=== PATIENT | female | born 1945 | race Caucasian/White ===

== ENCOUNTER 2020-02-19 12:34 | Outpatient (CLI) | payer MEDICARE, BC, SELFPAY ==
[2020-02-19 13:13] LABS: Basophils # 0.1 10^3/uL (0.0-0.1); Basophils % 0.3 %; Eosinophils # 0.2 10^3/uL (0.0-0.8); Eosinophils % 0.5 %; Hematocrit 43.6 % (37.0-47.0); Hemoglobin 13.9 g/dL (11.5-15.3); Lymphocytes # 39.5 10^3/uL (0.8-4.8); Lymphocytes % 85.9 %; Mean Corpuscular HGB Conc 31.9 g/dL (30.0-36.0); Mean Corpuscular Hemoglobin 29.3 pg (28.0-34.0); Mean Corpuscular Volume 91.8 fL (81-99); Mean Platelet Volume 9.3 fL (7.4-10.4); Monocytes # 1.2 10^3/uL (0.2-0.9); Monocytes % 2.5 %; Neutrophils # 4.92 10^3/uL (1.8-7.7); Neutrophils % 10.6 %; Nucleated Red Blood Cells % 0 %; Platelet Count 170 10^3/cmm (130-400); Red Blood Count 4.75 10^6/uL (4.1-5.3); Red Cell Distribution Width 13.4 % (12.1-15.1)
[2020-02-19 13:34] LABS: Alanine Aminotransferase 25 U/L (0-33); Albumin Level 4.3 g/dL (3.5-5.2); Alkaline Phosphatase 62 IU/L (35-105); Anion Gap 10.9 (5-19); Aspartate Amino Transferase 20 U/L (0-32); Blood Urea Nitrogen 9 mg/dL (8-23); Calcium 9.6 mg/dL (8.5-10.5); Carbon Dioxide 33 mmol/L (22-29); Chloride 103 mmol/L (98-107); Globulin 1.9 g/dL (1.3-4.6); Glucose 88 mg/dL (65-115); Lactate Dehydrogenase 167 U/L (135-214); Osmolality Calculated 292 mOsm/kg (285-295); Potassium 4.9 mmol/L (3.5-5.1); Sodium 142 mmol/L (136-145); Total Bilirubin 0.3 mg/dL (0.15-1.2); Total Protein 6.2 g/dL (6.6-8.7)
[2020-02-19 13:45] LABS: Slide Review Slide Review Perform
--- NOTE | 2020-02-23 12:17 | ONC FU_ITS ---
Dr. Yarbrough Patient Follow-Up Note Patient: Sue Delgado Unit #: [id number]: 1945 Dicatated By: Moe Yarbrough M.D.Date of Visit:Feb 19, 2020 Onc Med Follow-up/Prog Note Chief Complaint: Chronic lymphocytic leukemia. History of Present Illness: This is a 75 year-old woman with chronic lymphocytic leukemia, Reza stage 0. The leukemia was initially diagnosed by peripheral blood flow cytometry in October of 2004. She had early stage disease, and she has been managed with observation. 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 She has no other ongoing medical illnesses, but she has been prone to having bronchitis. She has a history of smoking in the range 1 to 1-1/2 packs of cigarettes daily. She had quit smoking, but she started again in September 2016. She is seen for a scheduled visit. She has been feeling good generally. She has some fatigue, attributable to being lazy. Overall she is feeling fine. She has good appetite. She has not had fever or night sweats. She occasionally has hot flashes. She has just occasional cough. She does not complain of shortness of breath or chest pain. She sometimes has nausea. She says she has lots of heartburn and indigestion. She also complains that her bowels are overactive and she tends to have urgency with defecation. She sometimes cannot control it. She has frequent urination, but no bladder incontinence. She says her joints hurt all the time. She does not complain of headache or dizziness, and she has no focal neurologic symptoms. Medications: Endocet 1 Tablet (of 5-325 mg) Oral four times a day PRN, FLUoxetine HCl 1 Capsule (of 20 mg) Oral daily, Lovastatin 1 (20 mg) Tablet Oral daily, Spironolactone 1 (25 mg) Tablet Oral daily, Synthroid 1 (88 mcg) Tablet Oral daily, Xanax 1 (0.5 mg) Tablet Oral t.i.d. PRN Allergies: Amitriptyline HCl, Naproxen, and steroids. Review of Systems: Constitutional - Overall she is feeling fine. She has some fatigue, attributable to being lazy. Her appetite is good. She has not had fever or night sweats. She occasionally has hot flashes. ECOG score is 1, ENMT - She sometimes has sinus drainage. No mouth sores. No sore throat or difficulty swallowing, Hematologic/Lymphatic - No abnormal bruising or bleeding, Respiratory - No shortness of breath. She occasionally has cough. No pleuritic pain or hemoptysis, Cardiovascular - No angina pain. No palpitations, Gastrointestinal - She sometimes has nausea. She has a lot of heartburn/indigestion. Her bowels have been overactive, she has urgency with defecation. She sometimes cannot control it. No blood in the stool or black stools, Genitourinary (F) - No dysuria or hematuria. She has urinary frequency. No urgency or incontinence, Musculoskeletal - She says her joints hurt all the time, Neurologic - No headache or dizziness. No numbness or tingling. No other focal neurologic symptoms, Psychiatric - She has anxiety. No depression. No insomnia. Vital Signs: Performed on Feb 19, 2020 13:59 Height - 65.50 in Weight - 184.0 lbs (HIGH) BSA - 1.92 sq.m BMI - 30.15 (HIGH) Temperature - 97.7 F (LOW) Pulse - 99 /min Respiration - 16 /min BP - 168/74 mm(hg) (HIGH) O2 Sat - 91 % (LOW) Pain - 0 Physical Examination: Constitutional - She looks pretty good generally, Eyes - Sclerae nonicteric. Conjunctivae clear, ENMT - No lesions noted in the oral cavity, Hematologic/Lymphatic - No cervical, clavicular, or axillary lymphadenopathy, Respiratory - Lungs sound clear with some decrease in air movement bilaterally, Cardiovascular - Heart rhythm is regular. There is a I/ systolic murmur. There is no gallop or rub noted, Abdomen - Soft. Liver and spleen are not enlarged. There is no abdominal mass or ascites noted and there is no inguinal adenopathy, Extremities - No edema, Neurologic - No focal neurologic deficits noted. Lab/Imaging: Test performed on Feb 19, 2020 12:55 LDH (Total) 167 U/L Sodium 142 mmol/L Potassium 4.9 mmol/L Chloride 103 mmol/L CO2 33 mmol/L Anion Gap 10.9 BUN 9 mg/dL Creatinine 0.8 mg/dL Cr Clearance (Est) 81.29 mL/min Glucose 88 mg/dL Osmolality - Calculated 292 mOsm/kg Calcium 9.6 mg/dL Protein, Total 6.2 g/dL Albumin 4.3 g/dL Globulin 1.9 g/dL Bilirubin, Total 0.3 mg/dL ALT (SGPT) 25 U/L AST (SGOT) 20 U/L Alkaline Phosphatase 62 IU/L WBC 46.0 10 3/uL RBC 4.75 10 6/uL HGB 13.9 g/dL HCT 43.6 % MCV 91.8 fL MCH 29.3 pg MCHC 31.9 g/dL RDW 13.4 % Platelet Count 170 10 3/cmm MPV 9.3 fL Neutrophils 4.92 10 3/uL Lymphocytes 39.5 10 3/uL Monocytes 1.2 10 3/uL Eosinophils 0.2 10 3/uL Basophils 0.1 10 3/uL Neutrophil % 10.6 % Lymphocyte % 85.9 % Monocyte % 2.5 % Eosinophil % 0.5 % Basophils % 0.3 % NRBC % 0 % CBC Slide Review Slide Review Perform REVIEW AGREES WITH AUTOMATED Impression: 1. Patient has chronic lymphocytic leukemia. She has early stage disease, Reza stage 0, and she has been followed on observation since initial diagnosis in October 2004. 2. She has additional history of bronchitis/COPD, and she is still smoking. 3. She has a history of Isamar's thyroiditis. She has no other significant medical illnesses. She had multiple problems following cataract excisions in 2016, apparently related to adverse effects from steroid injections. Those symptoms eventually resolved. From March through August of 2018 she was having significant problems related to 2 brown recluse spider bites, though those did eventually heal. During follow-up there had been a very gradual but consistent increase in her lymphocyte count, but with no other indications of progression of the chronic lymphocytic leukemia. On her current CBC her blood counts appear stable. Her overall clinical status also appears stable other than she has developed some problems with defecation. Plan: She remains on observation/expectant management for the CLL. She will be scheduled for a follow-up visit in one year. In the meantime, I did recommend that she first trying stopping all dairy products to see if that will help with her bowel issues. If not, I will give her the option to try cholestyramine. However, it may be advisable to first get a colonoscopy. Signed By: Moe Yarbrough M.D. <<Signature on File>>
== END 2020-02-19 12:35 | disposition home or self-care (01) ==
LOC: ONCMED 12:38
PROVIDERS: PCP Family Medicine; Visit Provider Internal Medicine Medical Oncology
DX: C91.10 Chronic lymphocytic leukemia of B-cell type not having achieved remission (principal); R15.2 Fecal urgency; J44.9 Chronic obstructive pulmonary disease, unspecified; F17.210 Nicotine dependence, cigarettes, uncomplicated; E06.3 Autoimmune thyroiditis
CPT/HCPCS: 36415; 80053; 83615; 85025; G0463

== ENCOUNTER 2020-03-08 12:18 | Outpatient (CLI) | payer MEDICARE, BC, SELFPAY ==
--- NOTE | 2020-03-08 12:26 | US_ITS ---
WS: [id number] ABDOMINAL ULTRASOUND LIMITED REASON FOR VISIT: EPIGASTRIC PAIN TECHNIQUE: Grayscale and Doppler ultrasound examination of the abdomen. FINDINGS: Pancreas: No mass or ductal dilatation. Abdominal aorta and IVC: Normal Liver: Liver measures 16.1 cm in length. Normal echotexture and no focal lesion. Focal lesion. Gallbladder: Gallbladder wall thickness measures 0.2 mm. No calculi. Normal common bile duct. Right kidney: Right kidney measures 9.7 cm x 3.7 cm x 4.6 cm.No mass, calculus, or hydronephrosis. No ascites or mass identified. US/US gall bladder [id number] IMPRESSION: Borderline liver enlargement, nonspecific, with no other liver findings. Normal gallbladder and bile ducts.
== END 2020-03-08 12:19 | disposition home or self-care (01) ==
LOC: RAD 12:22
PROVIDERS: PCP Family Medicine; Visit Provider Nurse Practitioner Family
DX: R10.13 Epigastric pain (principal); R19.7 Diarrhea, unspecified
CPT/HCPCS: 76705

== ENCOUNTER 2020-08-08 10:40 | Emergency (ER) | payer MEDICARE, BC, SELFPAY ==
[2020-08-08 11:14] VITALS: BP 160/82; PULSE 78; RESP 15; TEMP 36.7; O2SAT 93; BMI 26.8
--- NOTE | 2020-08-08 12:38 | CT_ITS ---
WS: [id number] CT ABDOMEN PELVIS TECHNIQUE: Contrast-enhanced CT of the abdomen and pelvis with coronal and sagittal reformatted image s. CLINICAL INFORMATION: right flank pain/ RLQ abd pain. pyelo? vs MS pain vs other COMPARISON: None. DLP: 1600.[address] scans at [facility] use at least one of these dose optimization techniques: automat ed exposure control; mA and/or kV adjustment per patient size (includes targeted exams where dose is matched to clinical indication); or iterative reconstruction. FINDINGS: Normal liver. Normal portal vein and splenic vein. Normal spleen. Normal pancreas. Normal GE junction . Lung bases are well aerated. Adrenal glands are normal. Normal renal parenchymal enhancement. No hy dronephrosis. No obstructing renal or ureteral calculi. Aortic calcification. Normal caliber abdomina l aorta. Bladder is decompressed. Diffuse bladder wall thickening and enhancement. Enlarged heterogeneous fibroid uterus with calcified bulky uterine fibroids. Inspissated secretions o r calcifications in the sigmoid colon. Diverticulosis. No evidence of acute diverticulitis. No eviden ce of small or large bowel obstruction. No abdominal or pelvic lymphadenopathy. No inguinal lymphaden opathy. Right adnexal cystic lesion measuring 1.5 CM. This can be followed up with ultrasound. CT/CT abdomen pelvis w con* [id number] IMPRESSION: 1. No hydronephrosis in either kidney. No renal or ureteral calculi. 2. Bulky calcified fibroid uterus. 3. Right adnexal cystic lesion measuring 1.5 CM. This can be followed up with ultrasound. 4. No free fluid in the abdomen or pelvis. 5. Diverticulosis. No evidence of acute diverticulitis. 6. Diffuse bladder wall thickening and enhancement. Recommend correlation for cystitis. 7. Normal appendix in the right lower quadrant.
--- NOTE | 2020-08-08 12:40 | ECG_ITS ---
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 Measurements Intervals Wells Rate: 64 P: 59 NE: 158 QRS: -11 QRSD: 83 T: 58 QT: 366 QTc: 379 Interpretive Statements SINUS RHYTHM No previous ECG available for comparison Electronically Signed On 08-08-2020 23:48:12 CDT by Zuhair Pabon M.D. [id number]
[2020-08-08] MEDS: sodium chloride 0.9% 1,000 ML 999 ML IV (13:31)
[2020-08-08] MEDS: cefTRIAXone 1,000 MG in sodium chloride 0.9% (plus) 50 ML 100 MG IV (13:32)
[2020-08-08 13:37] LABS: Basophils # 0.3 10^3/uL (0.0-0.1); Basophils % 0.5 %; Eosinophils # 0.2 10^3/uL (0.0-0.8); Eosinophils % 0.3 %; Hematocrit 46.4 % (37.0-47.0); Hemoglobin 15.1 g/dL (11.5-15.3); Lymphocytes # 42.2 10^3/uL (0.8-4.8); Lymphocytes % 76.8 %; Mean Corpuscular HGB Conc 32.5 g/dL (30.0-36.0); Mean Corpuscular Volume 92.1 fL (81-99); Mean Platelet Volume 9.3 fL (7.4-10.4); Monocytes # 1.2 10^3/uL (0.2-0.9); Monocytes % 2.1 %; Neutrophils # 10.98 10^3/uL (1.8-7.7); Neutrophils % 19.9 %; Nucleated Red Blood Cells % 0 %; Platelet Count 301 10^3/cmm (130-400); Red Blood Count 5.04 10^6/uL (4.1-5.3); Red Cell Distribution Width 14.5 % (12.1-15.1)
--- NOTE | 2020-08-08 13:42 | PC.PHAR ---
pt states she takes care of her own medications-pt states her dr dced her xanax -ext med history shows last filled on 07/02/20 30d/s for 0.5mg po bid prn-pt states she hasnt had since 07/24/20-pt states she needs her xannys back-pt brought in a bottle of buspar 15mg tid filled on 08/07/20 90ds and 10mg po tid prn filled on 08/01/20 30d/s-pt states she only took 10mg tid once and isnt going to take that medication again-pt states wednesday was the last day she took the macrobid and is now taking cipro-pt states the dr changed her synthroid to 37.5mcg daily last filled as 75mcg on 05/15/20 90d/s
[2020-08-08 13:52] LABS: Alanine Aminotransferase 12 U/L (0-33); Albumin Level 4.3 g/dL (3.5-5.2); Alkaline Phosphatase 65 IU/L (35-105); Blood Urea Nitrogen 8 mg/dL (8-23); Calcium 8.5 mg/dL (8.5-10.5); Carbon Dioxide 31 mmol/L (22-29); Chloride 97 mmol/L (98-107); Globulin 1.9 g/dL (1.3-4.6); Glucose 90 mg/dL (65-115); Lipase 35 U/L (13-60); Osmolality Calculated 282 mOsm/kg (285-295); Sodium 137 mmol/L (136-145); Total Bilirubin 0.6 mg/dL (0.15-1.2); Total Protein 6.2 g/dL (6.6-8.7)
[2020-08-08 13:53] LABS: Lactate (Lactic Acid level) 0.8 mmol/L (0.5-2.2)
[2020-08-08 13:54] LABS: Anion Gap 13.5 (5-19); Aspartate Amino Transferase 15 U/L (0-32); Potassium 4.5 mmol/L (3.5-5.1)
[2020-08-08 14:08] LABS: Slide Review Slide Review Perform; White Blood Count 54.9 10^3/uL (4.0-10.0)
--- NOTE | 2020-08-08 14:36 | ED_ITS ---
HPI - General Adult General: Chief complaint: General Medical Stated complaint: kidney infection failed outpt treatment Time Seen by Provider: 08/08/20 12:20 History of Present Illness: HPI narrative: The patient is a 75-year-old female who comes to the ER complaining of right flank pain for the past 9 days. She said she saw her primary care physician who initially started her on Macrobid however after a few days it did not work and she has been on ciprofloxacin 500 mg twice daily for several days. She says her symptoms have not changed and she continues to have right flank pain radiating to her groin. She says she urinates frequently but this is usual for her. She also has lymphoma and has a chronically severely elevated white count which she says the outpatient physicians are watching. Denies fever. Onset (ago): day(s) (9) Location: back Radiation: abdomen Severity: moderate Quality: other (Cramping) Pain Consistency: constant Relieving factors: none Exacerbating factors: movement Associated symptoms: Reports no associated symptoms; Deny chest pain, confusion, dyspnea, headache(s), rash or palpitations Review of Systems General: Reports: 10 or more systems reviewed and unremarkable except in HPI and below Const: Denies: fatigue Eyes: Denies: change in vision, blurry vision or eye redness ENMT: Denies: throat pain, swelling of lips/tongue, ear or mastoid pain or nasal congestion Card: Denies: chest pain, palpitations, irregular heart rhythm, edema, dyspnea on exertion or orthopnea Resp: Denies: dyspnea, productive cough or non-productive cough GI: Denies: abdominal pain, diarrhea or GI cramping : Reports: flank pain and urinary frequency; Denies: difficulty voiding or urinary urgency Musc: Denies: neck pain, back pain, extremity pain, joint pain, joint redness, limited range of motion or muscle weakness Skin/Breast: Denies: rash, pruritus, erythema, skin pain or skin tenderness Neuro: Denies: headache(s), numbness in extremities, weakness in extremities, sensory changes, difficulty walking, dizziness, confusion or Slurred speech present Psych: Denies: anxiety or depression Endo: Denies: polyuria All/Imm: Denies: urticaria, throat swelling or tongue swelling Physical Exam Const: COMMON NORMALS: no acute distress, average body habitus, patient oriented x3, no limitations, healthy appearing, alert and well nourished GENERAL APPEARANCE: cooperative, comfortable, well kempt and well developed ORIENTATION/CONSCIOUSNESS: Yes awake, Yes oriented to person, Yes oriented to place and Yes oriented to time HENMT: COMMON NORMALS: normocephalic, external ears normal and Normal external nose present HEAD & SCALP: normal to inspection and normocephalic NOSE: Normal external nose present EXTERNAL EAR: Yes external ears normal MOUTH: Normal oral and palatal mucosa present THROAT: posterior oropharynx normal Eye: COMMON NORMALS: Equal, round and reactive pupils present and EOMs intact bilaterally GENERAL EYE: appearance normal, both eyes and all related structures PUPIL: Yes Equal, round and reactive pupils present Neck/C-Spine: COMMON NORMALS: full ROM, no lymphadenopathy, no meningeal signs and no JVD GENERAL: Yes normal visual inspection Lymph: LYMPHATIC: no lymphadenopathy noted Chest: COMMONS NORMALS: normal inspection of the chest and normal palpation of entire chest wall Resp: COMMON NORMALS: normal respiratory effort, No retractions, No use of accessory muscles, clear to auscultation bilaterally and percussion normal EFFORT & INSPECTION: Yes able to speak in complete sentences AUSCULTATION: clear to auscultation bilaterally PERCUSSION: percussion normal Cardio: COMMON NORMALS: no JVD, regular rate, regular rhythm, S1 normal heart sound present, S2 normal heart sound present and Peripheral pulses 2+ throughout RATE: regular rate RHYTHM: regular rhythm HEART SOUNDS: S1 normal heart sound present and S2 normal heart sound present PERIPHERAL PULSES: Peripheral pulses 2+ throughout GI: COMMON NORMALS: Normal to inspection, nondistended, normoactive bowel sounds present, Soft to palpation, non-tender and no masses INSPECTION: Yes normal to inspection PALPATION: Yes Soft to palpation : OTHER: She has some CVA tenderness on the right side. Left side normal. Difficult to tell if the CVA tenderness is true or if it is musculoskeletal. It is tender with mild palpation to the erector spinae a musculature versus true flank tenderness. Back/Pelvis: COMMON NORMALS: thoracic and lumbar spine normal to inspection, no thoracic nor lumbar tenderness and thoraco-lumbar ROM normal Extremity: COMMON NORMALS: normal to inspection, full ROM, capillary refill normal, no joint enlargement and no pedal edema GENERAL: Yes normal exam except as noted Neuro: COMMON NORMALS: patient oriented x3, CN's II-XII intact bilaterally, moves all extremities, no focal motor deficits, no sensory deficits noted and gait normal SENSORIUM/ORIENTATION: Yes alert, Yes oriented to person, Yes oriented to place and Yes oriented to time MENINGEAL SIGNS: Yes no meningeal signs Psych: COMMON NORMALS: mental status grossly normal, Normal thought process present, cooperative, normal affect and speech normal APPEARANCE: Yes well kempt ATTITUDE: Yes calm SPEECH: Yes normal speech THOUGHT PROCESS: Normal thought process present Skin: COMMON NORMALS: no rashes or lesions noted GENERAL SKIN EXAM: no rashes or lesions noted Course Vital Signs: Vital signs: Vital Signs Temperature 98.1 F 08/08/20 11:14 Pulse Rate 78 08/08/20 11:14 Respiratory Rate 15 08/08/20 11:14 Blood Pressure 160/82 08/08/20 11:14 Pulse Oximetry 93 08/08/20 11:14 MDM - General Adult MDM Narrative: Medical decision making narrative: The patient came to the ER complaining of right flank pain and urinary symptoms. She is taking ciprofloxacin at home but continues to have flank pain. She was given ceftriaxone empirically on arrival and it did take her some time to produce urine however the sample looks clear. White count is 54.9 and she has known lymphoma which is being monitored as an outpatient. I recommended she drink lots of fluids, continue her ciprofloxacin, and follow-up the culture result in a couple days at her primary care doctor's office. ER with worsening symptoms at any time. Lab Data: Labs: Lab Results 08/08/20 08/08/20 08/08/20 Range/Units 13:19 13:19 13:19 WBC 54.9 H* (4.0-10.0) 10^3/ uL RBC 5.04 (4.1-5.3) 10^6/u L Hgb 15.1 (11.5-15.3) g/dL Hct 46.4 (37.0-47.0) % MCV 92.1 (81-99) fL MCH 30.0 (28.0-34.0) pg MCHC 32.5 (30.0-36.0) g/dL RDW 14.5 (12.1-15.1) % Plt Count 301 (130-400) 10^3/c mm MPV 9.3 (7.4-10.4) fL Neut % (Auto) 19.9 % Lymph % (Auto) 76.8 % Howard % (Auto) 2.1 % Eos % (Auto) 0.3 % Baso % (Auto) 0.5 % Neut # (Auto) 10.98 H (1.8-7.7) 10^3/u L Lymph # (Auto) 42.2 H (0.8-4.8) 10^3/u L Howard # (Auto) 1.2 H (0.2-0.9) 10^3/u L Eos # (Auto) 0.2 (0.0-0.8) 10^3/u L Baso # (Auto) 0.3 H (0.0-0.1) 10^3/u L Nucleated RBC % (a uto) 0 % Nucleated RBCs # 0.0 /100WBC Sodium 137 (136-145) mmol/L Potassium 4.5 (3.5-5.1) mmol/L Chloride 97 L (98-107) mmol/L Carbon Dioxide 31 H (22-29) mmol/L Anion Gap 13.5 (5-19) BUN 8 (8-23) mg/dL Creatinine 0.7 (0.5-0.9) mg/dL GFR Calculation Not Reportable Glucose 90 (65-115) mg/dL Calculated Osmolal ity 282 L (285-295) mOsm/k g Lactate 0.8 (0.5-2.2) mmol/L Calcium 8.5 (8.5-10.5) mg/dL Total Bilirubin 0.6 (0.15-1.2) mg/dL AST 15 (0-32) U/L ALT 12 (0-33) U/L Alkaline Phosphata se 65 (35-105) IU/L Total Protein 6.2 L (6.6-8.7) g/dL Albumin 4.3 (3.5-5.2) g/dL Globulin 1.9 (1.3-4.6) g/dL Lipase 35 (13-60) U/L Urine Color (Yellow) Urine Appearance (CLEAR) Urine pH (5-7) Ur Specific Gravit y (1.005-1.030) Urine Protein (Negative) Urine Glucose (UA) (Normal) Urine Ketones (Negative) Urine Blood (Negative) Urine Nitrate (Negative) Urine Bilirubin (Negative) Urine Urobilinogen (Negative) mg/dL Ur Leukocyte Maribeth ase (Negative) Urine RBC (0-2) /hpf Urine WBC (0-5) /hpf Ur Squamous Epith Cells (0-5) /hpf Ur Transition Epit h Cell /hpf Amorphous Sediment Urine Bacteria (NONE) /hpf 08/08/ Range/Units 15:45 WBC (4.0-10.0) 10^3/ uL RBC (4.1-5.3) 10^6/u L Hgb (11.5-15.3) g/dL Hct (37.0-47.0) % MCV (81-99) fL MCH (28.0-34.0) pg MCHC (30.0-36.0) g/dL RDW (12.1-15.1) % Plt Count (130-400) 10^3/c mm MPV (7.4-10.4) fL Neut % (Auto) % Lymph % (Auto) % Howard % (Auto) % Eos % (Auto) % Baso % (Auto) % Neut # (Auto) (1.8-7.7) 10^3/u L Lymph # (Auto) (0.8-4.8) 10^3/u L Howard # (Auto) (0.2-0.9) 10^3/u L Eos # (Auto) (0.0-0.8) 10^3/u L Baso # (Auto) (0.0-0.1) 10^3/u L Nucleated RBC % (a uto) % Nucleated RBCs # /100WBC Sodium (136-145) mmol/L Potassium (3.5-5.1) mmol/L Chloride (98-107) mmol/L Carbon Dioxide (22-29) mmol/L Anion Gap (5-19) BUN (8-23) mg/dL Creatinine (0.5-0.9) mg/dL GFR Calculation Glucose (65-115) mg/dL Calculated Osmolal ity (285-295) mOsm/k g Lactate (0.5-2.2) mmol/L Calcium (8.5-10.5) mg/dL Total Bilirubin (0.15-1.2) mg/dL AST (0-32) U/L ALT (0-33) U/L Alkaline Phosphata se (35-105) IU/L Total Protein (6.6-8.7) g/dL Albumin (3.5-5.2) g/dL Globulin (1.3-4.6) g/dL Lipase (13-60) U/L Urine Color Straw (Yellow) Urine Appearance Clear (CLEAR) Urine pH 7 (5-7) Ur Specific Gravit y 1.005 (1.005-1.030) Urine Protein Neg (Negative) Urine Glucose (UA) Norm (Normal) Urine Ketones Negative (Negative) Urine Blood Neg (Negative) Urine Nitrate Negative (Negative) Urine Bilirubin Neg (Negative) Urine Urobilinogen Norm (Negative) mg/dL Ur Leukocyte Maribeth ase Trace H (Negative) Urine RBC 0-4 H (0-2) /hpf Urine WBC 0-4 H (0-5) /hpf Ur Squamous Epith Cells 0-4 H (0-5) /hpf Ur Transition Epit h Cell 0-4 /hpf Amorphous Sediment Not Reportable Urine Bacteria Trace (NONE) /hpf Discharge Plan Discharge Patient Disposition: Home Clinical Impression: Cystitis Condition: Stable Prescriptions: No Action multivitamin Tablet 1 tab PO DAILY RF: 0 ciprofloxacin HCl 500 mg tablet 500 mg PO BID RF: 0 spironolactone 25 mg tablet 25 mg PO DAILY@07 RF: 0 Synthroid 75 mcg tablet 37.5 mcg PO DAILY@07 RF: 0 oxycodone-acetaminophen 5-325 mg tablet 1 tab PO Q4H PRN (Reason: Pain) RF: 0 omeprazole 20 mg capsule,delayed release(DR/EC) 20 mg PO QAM RF: 0 lovastatin 20 mg tablet 20 mg PO DAILY@18 RF: 0 ondansetron 4 mg tablet,disintegrating 4 mg PO Q6H PRN (Reason: Nausea And Vomiting) RF: 0 fluoxetine 20 mg capsule 20 mg PO DAILY@05 RF: 0 buspirone 15 mg tablet See Rx Instructions .ROUTE .COMPLEX RF: 0 Chantix 1 mg tablet 1 mg PO BID RF: 0 Discharge Orders: Discharge ED (Routine); Ordered 08/08/20 Ordered By: Ronal Steven Referrals: Darryl Pham Jr, MD [Primary Care Provider] - Discharge Diet: Advance as tolerated Discharge Activity: Resume usual activity Patient Instructions: Urinary Tract Infection in Women (ED), Acute Pyelonephritis (ED), Opioid Safety Activity Restrictions/Additional Instructions: You likely have a bladder infection called cystitis as it is seen on the CT scan. Your pain also radiates to your flanks you may have a mild kidney infection as well. Your urine looks relatively clean and we have given you an antibiotic in the ER. Please continue to finish your antibiotic at home and discuss with your primary care physician the culture report which usually takes 2 to 3 days to come back. Drink lots of fluids and follow-up with your primary care physician in 3 to 5 days. Return to the ER with worsening symptoms at any time. Coding Level of Care Code ED Attic Blower for Estela Fwd Exam Comprehensive
[2020-08-08] MEDS: iohexol 300 mg/mL 100 mL Btl IV (14:51)
[2020-08-08 15:59] LABS: Add Urine Microscopic? YES; Bilirubin Urine Neg (Negative); Blood Urine Neg (Negative); Glucose Urine UA Norm (Normal); Ketones Urine Negative (Negative); Leukocyte Esterase Urine Trace (Negative); Nitrate Urine Negative (Negative); Protein Urine Neg (Negative); Specific Gravity, Urine 1.005 (1.005-1.030); Urine Appearance Clear (CLEAR); Urine Color Straw (Yellow); Urobilinogen Urine Norm (Negative); pH Urine 7 (5-7)
[2020-08-08 16:02] LABS: Add Urine Culture? No; Bacteria Urine TRACE /hpf; RBC Urine 0-4 /hpf (0-2); Squamous Epithelial Cell Urine 0-4 /hpf (0-5); Transitional Epi Cells Urine 0-4 /hpf; WBC Urine 0-4 /hpf (0-5)
[2020-08-08 16:37] VITALS: BP 141/77; PULSE 67; RESP 16; O2SAT 91
== END 2020-08-08 16:38 | disposition home or self-care (01) ==
PROVIDERS: Emergency Provider Family Medicine; PCP Family Medicine
DX: N30.90 Cystitis, unspecified without hematuria (principal)
CPT/HCPCS: 74177; 80053; 81001; 83605; 83690; 85025; 93005; 96365; 99283; J0696; J7030; Q9967

== ENCOUNTER 2020-09-26 07:54 | Outpatient (CLI) | payer MEDICARE, BC, SELFPAY ==
--- NOTE | 2020-09-26 08:11 | CT_ITS ---
WS: [id number] CT ABDOMEN PELVIS TECHNIQUE: Noncontrast CT of the abdomen and pelvis with coronal and sagittal reformatted images. CLINICAL INFORMATION: RUQ PAIN COMPARISON: August 08, 2020 DLP: 1143.[address] scans at [facility] use at least one of these dose optimization techniques: automat ed exposure control; mA and/or kV adjustment per patient size (includes targeted exams where dose is matched to clinical indication); or iterative reconstruction. FINDINGS: Noncontrast liver is normal. Lung bases are well aerated. Subsegmental atelectasis right lower lobe. Noncontrast spleen is normal. Normal GE junction. Normal noncontrast pancreas. Adrenal glands are nor mal. No hydronephrosis in either kidney. No obstructing renal or ureteral calculi. Gallbladder appear s decompressed. Normal caliber abdominal aorta. Aortic calcification. No abdominal or pelvic lymphadenopathy. No ingu inal lymphadenopathy. Sigmoid diverticulosis. No evidence of acute diverticulitis. No evidence of hig h-grade small or large bowel obstruction. Heterogeneous enlarged bulky fibroid uterus with calcificat ions unchanged from previous. Right ovarian cystic lesion similar to previous measuring 15 mm. Constipation right colon.. CT/CT abdomen pelvis wo con [id number] IMPRESSION: 1. No obstructing renal or ureteral calculi. No hydronephrosis. 2. Sigmoid diverticulosis. No evidence of acute diverticulitis. 3. Mild constipation right colon. 4. Normal caliber abdominal aorta. 5. Small low-attenuation lesion right ovary measuring 15 mm similar to previou s. This can be followed up with ultrasound. 6. Heterogeneous bulky fibroid uterus with extensive calcifications is unchang ed. 7. No other significant changes from previous.
[2020-09-26] MEDS: iohexol 300 mg/mL 50 mL Btl PO (08:39)
== END 2020-09-26 07:55 | disposition home or self-care (01) ==
LOC: RADWPI 07:57
PROVIDERS: PCP Family Medicine; Visit Provider Nurse Practitioner Family
DX: R10.11 Right upper quadrant pain (principal); K57.30 Diverticulosis of large intestine without perforation or abscess without bleeding; K59.00 Constipation, unspecified; N83.8 Other noninflammatory disorders of ovary, fallopian tube and broad ligament
CPT/HCPCS: 74176; Q9967

== ENCOUNTER 2020-12-07 07:57 | Outpatient (CLI) | payer MEDICARE, BC, SELFPAY ==
--- NOTE | 2020-12-07 08:12 | USR_ITS ---
PROCEDURE INFORMATION: Exam: US Pelvis Complete, Transabdominal and US Duplex Artery and Vein, Ovaries, Complete Exam date and time: 12/07/2020 8:12 AM Age: 75 years old Clinical indication: Pelvic pain; Patient HX: RT side pain; Additional info: Noninflammitory disease of ovary (ovary lesion on recent ct) TECHNIQUE: Imaging protocol: Real-time transabdominal pelvic ultrasound with image documentation. Real-time duplex ultrasound scan of the arterial and venous flow of the ovaries with B-mode, color Doppler flow and spectral waveform analysis. Complete Pelvis, Complete Duplex. COMPARISON: CT abdomen pelvis wo con [id number] 09/26/2020 9:21 AM FINDINGS: Uterus/cervix: Uterus measures 7.2 x 2.5 x 4.8 cm. Uterus is very heterogeneous and lobulated in contour with multiple calcifications compatible fibroids. The largest calcified fibroid measures 1.8 cm in greatest dimension. Endometrial stripe is difficult to visualize due to the abnormal uterus and shadowing from the fibroids but no thickened endometrial stripe is identified. The stripe measures approximately 2-3 mm. Right adnexa: The right ovary is unremarkable in appearance measuring 1.4 x 1.3 x 2.3 cm. No right ovarian cysts or masses. Doppler evaluation of the right ovary was performed and demonstrates appropriate arterial and venous flow. No right ovarian torsion. Left adnexa: The left ovary is unremarkable in appearance measuring 1.6 x 2.0 x 2.5 cm. No left ovarian mass or cyst. Doppler evaluation of the left ovary demonstrates good arterial and venous flow. No left ovarian torsion. Free fluid: None. Bladder: Normal. US/US pelvic complete* [id number] IMPRESSION: 1. Multiple uterine fibroids. Otherwise unremarkable uterus. 2. Unremarkable bilateral ovaries. No ovarian mass or cyst. 3. Unremarkable bilateral ovarian Doppler. No ovarian torsion.
== END 2020-12-07 07:58 | disposition home or self-care (01) ==
PROVIDERS: PCP Family Medicine; Visit Provider Nurse Practitioner Family
DX: N83.9 Noninflammatory disorder of ovary, fallopian tube and broad ligament, unspecified (principal); R10.2 Pelvic and perineal pain; D25.9 Leiomyoma of uterus, unspecified
CPT/HCPCS: 76856; 93976

== ENCOUNTER 2021-01-27 10:17 | Outpatient (CLI) | payer MEDICARE, BC, SELFPAY ==
--- NOTE | 2021-01-27 10:27 | CT_ITS ---
WS: [id number] LDCT LUNG CANCER SCREENING HISTORY: NICOTINE DEPENDENCE TECHNIQUE: Axial imaging performed from the apices to 1 cm below the costophrenic angles. Coronal and sagittal reformats are submitted with axial MIP series. All CT scans at [facility] use at least one of these dose optimization techniques: automated exposure control; mA and/or kV adjustment per patient size (includes targeted exams where dose is matched to clinical indication); or iterativ e reconstruction. DLP: 55.38 mGy.cm DIvol: 1.58 mGy COMPARISON: 06/17/2005 Diagnostic quality: Satisfactory Lung Nodules: No pulmonary nodule or endobronchial lesions. Linear atelectasis in the RIGHT lower lob e. Very small amount of groundglass attenuation or atelectasis at the lingula. Lungs: Mild pulmonary hyperinflation from emphysema. Heart: Normal size heart. No pericardial effusion. Other findings: Mild atherosclerosis aorta. There are a few small mediastinal and hilar lymph nodes. CT/CT lung screening [id number] IMPRESSION: LUNG-RADS: 1-Negative FOLLOW UP: 12 Month: Continue annual screening with LDCT OTHER FINDINGS (S MODIFIER): None.
== END 2021-01-27 10:18 | disposition home or self-care (01) ==
LOC: CT 10:18
PROVIDERS: PCP Family Medicine; Visit Provider Nurse Practitioner Family
DX: Z12.2 Encounter for screening for malignant neoplasm of respiratory organs (principal); F17.210 Nicotine dependence, cigarettes, uncomplicated
CPT/HCPCS: 71271

== ENCOUNTER 2021-02-10 12:35 | Outpatient (CLI) | payer MEDICARE, BC, SELFPAY ==
[2021-02-10 13:19] LABS: Basophils # 0.1 10^3/uL (0.0-0.1); Basophils % 0.3 %; Eosinophils # 0.2 10^3/uL (0.0-0.8); Eosinophils % 0.4 %; Hematocrit 47.7 % (37.0-47.0); Hemoglobin 16.1 g/dL (11.5-15.3); Lymphocytes # 32.8 10^3/uL (0.8-4.8); Mean Corpuscular HGB Conc 33.8 g/dL (30.0-36.0); Mean Corpuscular Hemoglobin 30.2 pg (28.0-34.0); Mean Corpuscular Volume 89.5 fl (81-99); Mean Platelet Volume 9.5 fL (7.4-10.4); Monocytes # 1.5 10^3/uL (0.2-0.9); Monocytes % 3.6 %; Neutrophils # 7.81 10^3/uL (1.8-7.7); Neutrophils % 18.4 %; Nucleated Red Blood Cells % 0 %; Platelet Count 220 10^3/cmm (130-400); Red Blood Count 5.33 10^6/uL (4.1-5.3); Red Cell Distribution Width 13.5 % (12.1-15.1)
[2021-02-10 13:48] LABS: Alanine Aminotransferase 9 U/L (0-33); Albumin Level 4.5 g/dL (3.5-5.2); Alkaline Phosphatase 84 IU/L (35-105); Anion Gap 12.4 (5-19); Aspartate Amino Transferase 18 U/L (0-32); Blood Urea Nitrogen 12 mg/dL (8-23); Carbon Dioxide 32 mmol/L (22-29); Chloride 96 mmol/L (98-107); Globulin 2.4 g/dL (1.3-4.6); Glucose 73 mg/dL (65-115); Lactate Dehydrogenase 274 U/L (135-214); Osmolality Calculated 280 mOsm/kg (285-295); Potassium 4.4 mmol/L (3.5-5.1); Sodium 136 mmol/L (136-145); Total Bilirubin 0.5 mg/dL (0.15-1.2); Total Protein 6.9 g/dL (6.6-8.7)
[2021-02-10 14:07] LABS: Slide Review Slide Review Perform
[2021-02-10 14:09] LABS: White Blood Count 42.6 10^3/uL (4.0-10.0)
--- NOTE | 2021-02-14 09:12 | ONC FU_ITS ---
Dr. Yarbrough Patient Follow-Up Note Patient: Sue Delgado Unit #: [id number]: [id number] Dicatated By: Moe Yarbrough M.D.Date of Visit:Feb 10, 2021 Onc Med Follow-up/Prog Note Chief Complaint: Chronic lymphocytic leukemia. History of Present Illness: This is a 76 year-old woman with chronic lymphocytic leukemia, Reza stage 0. The leukemia was initially diagnosed by peripheral blood flow cytometry in October of 2004. She had early stage disease, and observation/expectant management was recommended. During follow-up, there was a gradual increase in her lymphocyte count, but there is no indication for treatment of the CLL, and she continued expectant management. 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 Her other medical illnesses include hypertension, hyperlipidemia, and degenerative arthritis. She also has had recurrent episodes of bronchitis. She has a history of smoking in the range 1 to 1-1/2 packs of cigarettes daily. She had quit smoking, but she started again in September 2016. She is seen for a scheduled visit. She indicates that she was pretty sick for couple of months last spring. It started with an E. coli urinary tract infection. During that time she had a weight loss in the range of 30 pounds, she did get better, and she has since regained 20 of that. She still complains that some days she does not have energy, and her activity is also limited by back pain. Her ECOG score is 1. Appetite is okay now. She does not have fever or night sweats. She has some allergy related sinus symptoms and she does have cough associated with it. She says her breathing is fine. She does not complain of chest pain. She currently has no GI or complaints. She has persistent pain in her lower back on the right side and in the right sacroiliac area. She also has joint pain in her hands and wrists. She does not complain of headache or dizziness, and she has no focal neurologic symptoms. Medications: Cyclobenzaprine HCl Tablet Oral PRN, Lovastatin 1 (20 mg) Tablet Oral daily, [place] 3 500 1 Tablet (of 500 mg) Capsule Oral b.i.d., Spironolactone 1 (25 mg) Tablet Oral daily, Synthroid 1 (88 mcg) Tablet Oral daily, Xanax 1 (0.5 mg) Tablet Oral t.i.d. PRN Allergies: Amitriptyline HCl, Naproxen, and steroids. Vital Signs: Performed on Feb 10, 2021 16:02 Height - 65.50 in Weight - 177 lbs (LOW) BSA - 1.89 sq.m BMI - 29.01 Temperature - 98.0 F (LOW) Pulse - 100 /min Respiration - 16 /min BP - 149/84 mm(hg) (HIGH) O2 Sat - 93 % (LOW) Pain - 0 Fatigue - 4 Physical Examination: Constitutional - She looks pretty good generally, Eyes - Sclerae nonicteric. Conjunctivae clear, ENMT - No lesions noted in the oral cavity, Hematologic/Lymphatic - No cervical, clavicular, or axillary lymphadenopathy, Respiratory - Lungs sound clear with some decrease in air movement bilaterally, Cardiovascular - Heart rhythm is regular. There is no murmur, gallop, or rub noted, Abdomen - Soft. Liver and spleen are not enlarged. There is no abdominal mass or ascites noted and there is no inguinal adenopathy, Extremities - No edema, Neurologic - No focal neurologic deficits noted. Lab/Imaging: Test performed on Feb 10, 2021 12:59 LDH (Total) 274 U/L Sodium 136 mmol/L Potassium 4.4 mmol/L Chloride 96 mmol/L CO2 32 mmol/L Anion Gap 12.4 BUN 12 mg/dL Creatinine 0.7 mg/dL Cr Clearance (Est) 88.01 mL/min Glucose 73 mg/dL Osmolality - Calculated 280 mOsm/kg Calcium 9.0 mg/dL Protein, Total 6.9 g/dL Albumin 4.5 g/dL Globulin 2.4 g/dL Bilirubin, Total 0.5 mg/dL ALT (SGPT) 9 U/L AST (SGOT) 18 U/L Alkaline Phosphatase 84 IU/L WBC 42.6 10 3/uL RBC 5.33 10 6/uL HGB 16.1 g/dL HCT 47.7 % MCV 89.5 fl MCH 30.2 pg MCHC 33.8 g/dL RDW 13.5 % Platelet Count 220 10 3/cmm MPV 9.5 fL Neutrophils 7.81 10 3/uL Lymphocytes 32.8 10 3/uL Monocytes 1.5 10 3/uL Eosinophils 0.2 10 3/uL Basophils 0.1 10 3/uL Neutrophil % 18.4 % Lymphocyte % 77.0 % Monocyte % 3.6 % Eosinophil % 0.4 % Basophils % 0.3 % NRBC % 0 % CBC Slide Review Slide Review Perform REVIEW AGREES WITH AUTOMATED RESULTS Problem List: 1. chronic lymphocytic leukemia. 2. Hypertension. 3. Hyperlipidemia. 4. COPD/bronchitis. 5. Degenerative arthritis. 6. History of Isamar's thyroiditis. Problems Addressed with this Encounter and Plan: 1. Patient has chronic lymphocytic leukemia. She had early stage disease ( Reza stage 0) at initial diagnosis in 2004, and expectant management was recommended. During follow-up there has been a gradual increase in her lymphocyte count. There has been no other evidence of disease progression and there has been no indication for treatment. As such, she continues expectant management. She will be scheduled for a follow-up visit in 6 months. 2. She has degenerative arthritis and she has significant worsening of joint pain during the winter months. During that time she is able to function much better with occasional use of the opiate pain medication, and she will be given a prescription for oxycodone 5/APAP 325 to take as needed. Signed By: Moe Yarbrough M.D. <<Signature on File>>
== END 2021-02-10 12:36 | disposition home or self-care (01) ==
LOC: ONCMED 12:44
PROVIDERS: PCP Family Medicine; Visit Provider Internal Medicine Medical Oncology
DX: Z08 Encounter for follow-up examination after completed treatment for malignant neoplasm (principal); Z85.6 Personal history of leukemia; I10 Essential (primary) hypertension; E78.5 Hyperlipidemia, unspecified; J44.9 Chronic obstructive pulmonary disease, unspecified; M19.90 Unspecified osteoarthritis, unspecified site; E06.3 Autoimmune thyroiditis; Z79.899 Other long term (current) drug therapy
CPT/HCPCS: 36415; 80053; 83615; 85025; 90471; 90670; 99214

== ENCOUNTER 2021-03-19 10:43 | Outpatient (CLI) | payer MEDICARE, BC, SELFPAY ==
--- NOTE | 2021-03-19 11:00 | MM_ITS ---
WS: [id number] BILATERAL DIGITAL SCREENING MAMMOGRAPHY WITH CAD CLINICAL INFORMATION: SCREEN HISTORY: Screening mammogram. No current complaints. COMPARISON: TECHNIQUE: Bilateral CC and MLO views. FINDINGS: Scattered fibroglandular densities bilaterally. No suspicious focal mass, asymmetry, calcifications, or architectural distortion. No evidence of malignancy. A few tiny incidental punctate calcifications similar to previous. MM/[place] [id number] IMPRESSION: BI-RADS: 2-Benign FOLLOW UP: 1 Year Follow-up Recommend return to annual screening mammography.
== END 2021-03-19 10:44 | disposition home or self-care (01) ==
LOC: RADSHAW 10:48
PROVIDERS: Visit Provider Nurse Practitioner Family
DX: Z12.31 Encounter for screening mammogram for malignant neoplasm of breast (principal)
CPT/HCPCS: 77067

== ENCOUNTER 2021-08-27 12:24 | Oncology outpatient (recurring) (ONCR) | payer MEDICARE, BC, SELFPAY ==
[2021-08-27 11:30] LABS: Hematocrit 46.7 % (37.0-47.0); Hemoglobin 15.7 g/dL (11.5-15.3); Mean Corpuscular HGB Conc 33.6 g/dL (30.0-36.0); Mean Corpuscular Hemoglobin 29.8 pg (28.0-34.0); Mean Corpuscular Volume 88.6 fl (81-99); Mean Platelet Volume 9.7 fL (7.4-10.4); Platelet Count 199 10^3/cmm (130-400); Red Blood Count 5.27 10^6/uL (4.1-5.3); Red Cell Distribution Width 13.8 % (12.1-15.1)
[2021-08-27 11:32] LABS: Alanine Aminotransferase 15 U/L (0-33); Alkaline Phosphatase 83 IU/L (35-105); Anion Gap 14.4 (5-19); Aspartate Amino Transferase 15 U/L (0-32); Blood Urea Nitrogen 11 mg/dL (8-23); Calcium 9.1 mg/dL (8.5-10.5); Carbon Dioxide 25 mmol/L (22-29); Chloride 100 mmol/L (98-107); Globulin 2.7 g/dL (1.3-4.6); Glucose 99 mg/dL (65-115); Osmolality Calculated 279 mOsm/kg (285-295); Potassium 4.4 mmol/L (3.5-5.1); Sodium 135 mmol/L (136-145); Total Bilirubin 0.5 mg/dL (0.15-1.2); Total Protein 6.7 g/dL (6.6-8.7)
[2021-08-27 11:33] LABS: Lactate Dehydrogenase 165 U/L (135-214)
[2021-08-27 12:07] LABS: Slide Review Slide Review Perform
[2021-08-27 12:09] LABS: Absolute Segmented Neutrophil 12.7 10/cmm (1.6-7.1); Eosinophils 0 %; Lymphocytes 13 %; Lymphocytes Absolute 33.3 10^3/cmm (1.2-3.4); Monocytes Absolute 2.9 10^3/cmm (0.1-0.6); Segmented Neutrophils 26 %; Total Cells Counted 100 (0-100); White Blood Count 48.9 10^3/uL (4.0-10.0)
[2021-08-27 12:10] LABS: Absolute Neutrophil 12.7 10^3/cmm (1.4-6.5); Platelet Estimate Normal (Normal); Smudge Cells 4+
== END 2021-09-18 23:59 | disposition home or self-care (01) ==
PROVIDERS: Visit Provider Internal Medicine Medical Oncology
DX: Z08 Encounter for follow-up examination after completed treatment for malignant neoplasm (principal); Z85.6 Personal history of leukemia; R53.83 Other fatigue; F17.210 Nicotine dependence, cigarettes, uncomplicated; C91.10 Chronic lymphocytic leukemia of B-cell type not having achieved remission; Z79.899 Other long term (current) drug therapy
CPT/HCPCS: 36415; 80053; 83615; 85007; 85025; G0463

== ENCOUNTER 2022-02-26 11:13 | Oncology outpatient (recurring) (ONCR) | payer MEDICARE, BC, SELFPAY ==
[2022-02-26 11:47] LABS: Hematocrit 51.3 % (37.0-47.0); Hemoglobin 16.3 g/dL (11.5-15.3); Mean Corpuscular HGB Conc 31.8 g/dL (30.0-36.0); Mean Corpuscular Hemoglobin 29.5 pg (28.0-34.0); Mean Corpuscular Volume 92.9 fl (81-99); Mean Platelet Volume 9.5 fL (7.4-10.4); Platelet Count 217 10^3/cmm (130-400); Red Blood Count 5.52 10^6/uL (4.1-5.3)
[2022-02-26 12:00] LABS: Alanine Aminotransferase 17 U/L (0-33); Albumin Level 4.2 g/dL (3.5-5.2); Alkaline Phosphatase 78 U/L (35-105); Anion Gap 11.5 (5-19); Aspartate Amino Transferase 14 U/L (0-32); Blood Urea Nitrogen 10 mg/dL (8-23); Calcium 9.4 mg/dL (8.5-10.5); Carbon Dioxide 31 mmol/L (22-29); Chloride 101 mmol/L (98-107); Globulin 2.5 g/dL (1.3-4.6); Glucose 102 mg/dL (65-115); Lactate Dehydrogenase 168 U/L (135-214); Osmolality Calculated 287 mOsm/kg (285-295); Potassium 4.5 mmol/L (3.5-5.1); Sodium 139 mmol/L (136-145); Total Bilirubin 0.4 mg/dL (0.15-1.2); Total Protein 6.7 g/dL (6.6-8.7)
[2022-02-26 12:19] LABS: Absolute Neutrophil 8.6 10^3/cmm (1.4-6.5); Absolute Segmented Neutrophil 8.6 10/cmm (1.6-7.1); Eosinophils 0 %; Lymphocytes 79 %; Lymphocytes Absolute 37.5 10^3/cmm (1.2-3.4); Monocytes Absolute 1.4 10^3/cmm (0.1-0.6); Platelet Estimate Normal (Normal); Segmented Neutrophils 18 %; Total Cells Counted 100 (0-100)
[2022-02-26 12:23] LABS: White Blood Count 47.5 10^3/uL (4.0-10.0)
[2022-02-26 12:24] LABS: Smudge Cells 2+
[2022-02-26] MEDS: pneumococcal (23 valent) SDV 0.5 mL IM (13:55)
== END 2022-03-21 23:59 | disposition home or self-care (01) ==
PROVIDERS: PCP Nurse Practitioner Family; Visit Provider Internal Medicine Medical Oncology
DX: Z08 Encounter for follow-up examination after completed treatment for malignant neoplasm (principal); C91.10 Chronic lymphocytic leukemia of B-cell type not having achieved remission; R53.83 Other fatigue; F17.200 Nicotine dependence, unspecified, uncomplicated; M19.90 Unspecified osteoarthritis, unspecified site; Z23 Encounter for immunization
CPT/HCPCS: 36415; 80053; 83615; 85007; 85025; 90471; 90732; 99214

== ENCOUNTER 2022-04-14 11:04 | Outpatient (CLI) | payer MEDICARE, BC, SELFPAY ==
--- NOTE | 2022-04-14 11:13 | MM_ITS ---
WS: [id number] VIEWS: MLO and CC views both breasts. 3D digital tomosynthesis is also included in this exam. Comparison made with prior exam of 05/15/2014, 05/17/2015, 05/19/2016, 11/04/2018, 03/19/2021. Findings: A probable new 9 mm lobulated nodule is noted in the inferior far medial right breast at about mid de pth level. No architectural distortion or suspicious calcification noted. There are additional scatte red small stable appearing nodular densities in both breasts. Regional ultrasound and Spot compressio n images of the right breast are suggested for further workup. The breasts are fatty. MM/[place] [id number] Impression: BI-RADS: 0-Incomplete: Need additional imaging evaluation FOLLOW-UP: Need Additional Imaging This mammogram was also analyzed by the Computer Aided Detection System R2 Imag e Mortar Worker.
== END 2022-04-14 11:05 | disposition home or self-care (01) ==
PROVIDERS: PCP Nurse Practitioner Family; Visit Provider Nurse Practitioner Family
DX: Z12.31 Encounter for screening mammogram for malignant neoplasm of breast (principal)
CPT/HCPCS: 77063; 77067

== ENCOUNTER 2022-05-08 13:44 | Outpatient (CLI) | payer MEDICARE, BC, SELFPAY ==
--- NOTE | 2022-05-08 13:50 | MM_ITS ---
WS: [id number] Right breast diagnostic 3D tomosynthesis digital mammogram, 05/08/2022 Clinical Data: ABNORMAL MAMMO Comparison: 04/14/2022, 03/19/2021, 11/04/2018, 06/09/2017, 05/19/2016, 05/17/2015, 05/15/2014, 05/11/2013, 04/18/2012, 03/27/2011, 03/25/2010, 03/20/2009, 03/19/2008, 03/17/2007, 03/09/2006. Findings: Compression views of the medial aspect of the right breast in the CC position and in the inferior asp ect of the right breast in the MLO position do not demonstrate the density that was noted on the prio r exam. Additional right ML view demonstrates no abnormalities in the region noted on the prior study . There is only normal breast tissue seen in the medial inferior right breast. There are no spiculat ed masses or clustered calcifications. MM/[place] [id number] Impression: 1. Negative for abnormal masses or tissue in the inferior medial aspect right b reast. 2. Return to annual screening mammograms BIRADS: 1-Negative FOLLOW UP: 1 Year Follow-up The CAD clerical car checker was used.
== END 2022-05-08 13:45 | disposition home or self-care (01) ==
LOC: RAD 13:46
PROVIDERS: PCP Nurse Practitioner Family; Visit Provider Nurse Practitioner Family
DX: R92.8 Other abnormal and inconclusive findings on diagnostic imaging of breast (principal)
CPT/HCPCS: 77061; G0279

== ENCOUNTER 2022-07-06 10:01 | Inpatient (IN) | payer MEDICARE, BC, SELFPAY ==
[2022-07-06] VITALS (9 sets, daily range): BP systolic 134–161; BP diastolic 73–89; PULSE 89–112; RESP 16–20; TEMP 36.5–36.7; O2SAT 86–96; BMI 26.9; BMI 27.8
--- NOTE | 2022-07-06 10:32 | XR_ITS ---
WS: [id number] Portable AP upright chest, 07/06/2022 Clinical Data: sob Comparison: Two-view chest, 03/26/2009 Findings: No nodules, masses or effusions are seen. The heart is normal. The pulmonary vascularity is not increased. No pneumonia or pneumothorax is seen. The aortic arch and descending thoracic aorta s how minimal calcification and tortuosity. There are calcifications overlying the left greater tuberos ity which may represent calcific bursitis and/or tendinitis. XR/XR chest 1V portable [id number] Impression: Atherosclerosis.
[2022-07-06] MEDS: ipratropium-albuterol 3 mL Neb INHALATION ×2 (10:51→22:03)
--- NOTE | 2022-07-06 11:00 | ED_ITS ---
Documented by User: VITOR Portillo 07/06/22 12:42 HPI - SOB/Dyspnea General: Chief Complaint: Shortness of Breath/Dyspnea Stated Complaint: possible pneumonia Time Seen by Provider: 07/06/22 10:32 Source: patient Mode of arrival: EMS Limitations: no limitations History of Present Illness: HPI Narrative: Patient is a 77-year-old female with a history of CLL here for complaints of dyspnea and a productive cough over the past several days. She has also had some subjective fevers and chills. Patient is an everyday smoker. She states she does not wear oxygen at home. Upon arrival to the ED she was satting at 86% on room air. Patient states she is not having any chest pain except for when she coughs. She has not noticed any lower extremity swelling, redness, or calf pain. Denies sick contacts. MD elicited complaint: shortness of breath and cough Onset (ago): day(s) Timing: constant Severity: moderate Relieving factors: nothing Associated symptoms: Reports chest congestion and fever(s) (subjective); Deny abdominal pain, chest pain, extremity pain, hemoptysis, lightheadedness, nausea, orthopnea, palpitations, syncope or vomiting Treatment prior to arrival: none Related Data: Home oxygen amount: none Review of Systems Const: Reports: fever(s) (subjective) and chills; Denies: body aches, fatigue or malaise ENMT: Denies: throat pain, odynophagia, nasal discharge or nasal congestion Card: Denies: chest pain, palpitations, irregular heart rhythm, edema, swelling of feet/ankles, lightheadedness, syncope, pre-syncope, orthopnea, leg pain with exertion or acrocyanosis Resp: Reports: dyspnea, productive cough and chest congestion; Denies: wheezing or hemoptysis GI: Denies: abdominal pain, nausea, vomiting or diarrhea : Denies: flank pain or dysuria Musc: Denies: neck pain, back pain, extremity pain, extremity swelling, joint pain, joint swelling, joint redness or joint warmth Skin/Breast: Denies: rash Neuro: Denies: headache(s), numbness in extremities, weakness in extremities or sensory changes [facility] ED PFSH: Medical History (Updated 07/09/22 @ 00:02 by ADENIKE Hernandez) Anxiety 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) Degenerative arthritis Diverticulosis hospitalized with diverticulitis in 2003 GERD (gastroesophageal reflux disease) Glaucoma 3 History of Isamar thyroiditis Hyperlipidemia Hypertension Hypothyroidism Surgical History (Updated 07/06/22 @ 14:44 by Ara Caldera MD) History of carpal tunnel release right History of cataract surgery 2017 History of colonoscopy 03/2019 Dr Phan History of esophagogastroduodenoscopy (EGD) 03/2019 Dr Phan History of removal of cyst Removal of cysts from the back and left hand (ganglion cyst) History of subtotal thyroidectomy (~1984) History of tubal ligation Family History (Updated 07/06/22 @ 14:44 by Ara Caldera MD) Denies family history of Clotting disorder Lung disease Cancer Social History (Updated 07/06/22 @ 14:47 by Ara Caldera MD) Smoking and tobacco status: current every day smoker Alcohol intake: never Substance/Drug Use: never Household members: spouse Marital status: Physical Exam Const: COMMON NORMALS: no acute distress, average body habitus, patient oriented x3, no limitations, alert and well nourished GENERAL APPEARANCE: cooperative and in distress (acute respiratory distress with hypoxia) ORIENTATION/CONSCIOUSNESS: Yes awake, Yes oriented to person, Yes oriented to place and Yes oriented to time HENMT: COMMON NORMALS: normocephalic and atraumatic HEAD & SCALP: normal to inspection, normocephalic and atraumatic Neck/C-Spine: COMMON NORMALS: no lymphadenopathy and no JVD Chest: COMMONS NORMALS: normal inspection of the chest and normal palpation of entire chest wall Resp: COMMON NORMALS: normal respiratory effort AUSCULTATION: rales Cardio: COMMON NORMALS: no JVD and regular rhythm RATE: tachycardic RHYTHM: regular rhythm GI: COMMON NORMALS: Normal to inspection, nondistended, normoactive bowel sounds present, Soft to palpation and non-tender PALPATION: Yes Soft to palpation Extremity: COMMON NORMALS: normal to inspection, capillary refill normal, no clubbing, cyanosis or edema, no calf tenderness and no pedal edema GENERAL: Yes normal exam except as noted Neuro: LAYNE COMA SCALE: document GCS findings Layne coma scale eye opening: Spontaneous [place] coma scale verbal response: Orientated [place] coma scale motor response: Obey commands [place] coma scale total score: 15 COMMON NORMALS: patient oriented x3 SENSORIUM/ORIENTATION: Yes alert, Yes oriented to person, Yes oriented to place and Yes oriented to time Skin: COMMON NORMALS: no rashes or lesions noted GENERAL SKIN EXAM: no rashes or lesions noted Course Vital Signs: Vital signs: Vital Signs Temperature 98.2 F 07/08/22 15:35 Pulse Rate 95 07/08/22 15:35 Respiratory Rate 16 07/08/22 15:35 Blood Pressure 157/79 07/08/22 15:35 Pulse Oximetry 95 07/08/22 15:35 Oxygen Delivery Me thod Nasal Cannula 07/08/22 15:35 Oxygen Flow Rate 3 07/08/22 15:35 MDM - SOB/Dyspnea Medical Decision Making Patient is a nice 77-year-old female with a history of CLL here for complaints of dyspnea over the past few days. She is an everyday smoker without a known history of COPD. She arrives acutely hypoxic satting 86% on room air. She currently is on 3L and satting normally. She was given DuoNeb treatment here with slight improvement. Blood work shows a white count of 61.3 which is elevated compared to her chronic elevations secondary to her CLL. Her CRP is elevated at 261.5. She has a normal lactate and a normal procal. CXR showing no acute disease process. Respiratory panel collected and pending. UA is pending. Patient will require hospitalization for COPD exacerbation with hypoxia. I have spoken to Dr. Amado who will speak to hospitalist for admission. Lab Data 07/08/22 05:29 07/08/22 05:29 Labs/Radiology: Radiology Impressions Chest X-Ray 07/06/22 10:32 Impression: Atherosclerosis. Chest CTA 07/07/22 12:39 IMPRESSION: 1. No pulmonary embolism. 2. Mild diffuse bronchial wall thickening but greatest in the lower lobes. Most likely due to bronchitis. 3. Additional tree-in-bud airspace disease bilaterally. Most typical for endobronchial pneumonia or aspiration pneumonia. 4. Indeterminate mediastinal and hilar lymph nodes are probably reactive. Laboratory Results WBC 70.2 10^3/uL (4.0-10.0) H* 07/07/22 04:36 RBC 4.82 10^6/uL (4.1-5.3) 07/07/22 04:36 Hgb 14.2 g/dL (11.5-15.3) 07/07/22 04:36 Hct 44.6 % (37.0-47.0) 07/07/22 04:36 MCV 92.5 fl (81-99) 07/07/22 04:36 MCH 29.5 pg (28.0-34.0) 07/07/22 04:36 MCHC 31.8 g/dL (30.0-36.0) 07/07/22 04:36 RDW 13.5 % (12.1-15.1) 07/07/22 04:36 Plt Count 247 10^3/cmm (130-400) 07/07/22 04:36 MPV 10.1 fL (7.4-10.4) 07/07/22 04:36 Neut % (Auto) 26.8 % 07/07/22 04:36 Lymph % (Auto) 70.0 % 07/07/22 04:36 [place] % (Auto) 1.9 % 07/07/22 04:36 Eos % (Auto) 0.0 % 07/07/22 04:36 Baso % (Auto) 0.4 % 07/07/22 04:36 Neut # (Auto) 18.80 10^3/uL (1.8-7.7) H 07/07/22 04:36 Lymph # (Auto) 49.2 10^3/uL (0.8-4.8) H 07/07/22 04:36 [place] # (Auto) 1.3 10^3/uL (0.2-0.9) H 07/07/22 04:36 Eos # (Auto) 0.0 10^3/uL (0.0-0.8) 07/07/22 04:36 Baso # (Auto) 0.3 10^3/uL (0.0-0.1) H 07/07/22 04:36 Nucleated RBC % (auto) 0 % 07/07/22 04:36 Nucleated RBCs # 0.0 /100WBC 07/07/22 04:36 D-Dimer 1.06 ug/mIFEU (0-0.59) H 07/07/22 11:45 Sodium 133 mmol/L (136-145) L 07/07/22 04:36 Potassium 4.9 mmol/L (3.5-5.1) 07/07/22 04:36 Chloride 98 mmol/L (98-107) 07/07/22 04:36 Carbon Dioxide 25 mmol/L (22-29) 07/07/22 04:36 Anion Gap 14.9 (5-19) 07/07/22 04:36 BUN 20 mg/dL (8-23) 07/07/22 04:36 Creatinine 0.7 mg/dL (0.5-0.9) 07/07/22 04:36 GFR Calculation Not Reportable 07/07/22 04:36 Glucose 153 mg/dL (65-115) H 07/07/22 04:36 Calculated Osmolality 282 mOsm/kg (285-295) L 07/07/22 04:36 Lactic Acid 1.6 mmol/L (0.5-2.2) 07/06/22 10:58 Calcium 8.7 mg/dL (8.5-10.5) 07/07/22 04:36 Iron 40 ug/dL (37-145) 07/07/22 04:36 TIBC 197 mcg/dl 07/07/22 04:36 % Saturation 20.3 % (20-50) 07/07/22 04:36 Unsat Iron Binding 157 ug/dL (112-347) 07/07/22 04:36 Total Bilirubin 0.9 mg/dL (0.15-1.2) 07/07/22 04:36 AST 50 U/L (0-32) H 07/07/22 04:36 ALT 42 U/L (0-33) H 07/07/22 04:36 Alkaline Phosphatase 93 U/L (35-105) 07/07/22 04:36 Lactate Dehydrogenase 256 U/L (135-214) H 07/07/22 04:36 C-Reactive Protein 186.5 mg/L (0.0-4.9) H 07/07/22 04:36 NT-Pro-B Natriuret Pep 221 pg/mL (0-450) 07/06/22 10:34 Total Protein 6.2 g/dL (6.6-8.7) L 07/07/22 04:36 Albumin 3.1 g/dL (3.5-5.2) L 07/07/22 04:36 Globulin 3.1 g/dL (1.3-4.6) 07/07/22 04:36 Vitamin B12 878 pg/mL (232-1245) 07/07/22 04:36 Folate 18.0 ng/mL (4.8-37.3) 07/07/22 04:36 Procalcitonin 0.12 ng/mL (0-0.5) 07/06/22 10:58 Urine Color Yellow (Yellow) 07/06/22 12:31 Urine Appearance Sl hazy (CLEAR) A 07/06/22 12:31 Urine pH 6 (5-7) 07/06/22 12:31 Ur Specific [place] 1.020 (1.005-1.030) 07/06/22 12:31 Urine Protein 2+ (Negative) H 07/06/22 12:31 Urine Glucose (UA) Norm (Normal) 07/06/22 12:31 Urine Ketones 1+ (Negative) H 07/06/22 12:31 Urine Blood 3+ (Negative) H 07/06/22 12:31 Urine Nitrate Negative (Negative) 07/06/22 12:31 Urine Bilirubin 1+ (Negative) H 07/06/22 12:31 Urine Urobilinogen 8 mg/dL (Negative) H 07/06/22 12:31 Ur Leukocyte Esterase 1+ (Negative) H 07/06/22 12:31 Urine RBC 0-4 /hpf (0-2) H 07/06/22 12:31 Urine WBC 10-15 /hpf (0-5) H 07/06/22 12:31 Ur Squamous Epith Cells 0-4 /hpf (0-5) H 07/06/22 12:31 Ur Transition Epith Cell 0-4 /hpf 07/06/22 12:31 Amorphous Sediment Not Reportable 07/06/22 12:31 Urine Bacteria 2+ /hpf (NONE) H 07/06/22 12:31 Hyaline Casts 10-15 /lpf H 07/06/22 12:31 Urine Mucus Trace /hpf 07/06/22 12:31 Nasal Influ A H1 2008 PCR Not detected (NOT DETECT) 07/06/22 11:09 Adenovirus (PCR) Not detected (NOT DETECT) 07/06/22 11:09 C. pneumoniae DNA (PCR) Not detected (NOT DETECT) 07/06/22 11:09 Coronavirus 229E (PCR) Not detected (NOT DETECT) 07/06/22 11:09 Human Metapneumovir PCR Not detected (NOT DETECT) 07/06/22 11:09 Influenza A (H1) PCR Not detected (NOT DETECT) 07/06/22 11:09 Influenza A (H3) PCR Not detected (NOT DETECT) 07/06/22 11:09 Influenza Type A (PCR) Not detected (NOT DETECT) 07/06/22 11:09 Influenza Type B (PCR) Not detected (NOT DETECT) 07/06/22 11:09 M. pneumoniae (PCR) Not detected (NOT DETECT) 07/06/22 11:09 Parainfluenza 1 (PCR) Not detected (NOT DETECT) 07/06/22 11:09 Parainfluenza 2 (PCR) Not detected (NOT DETECT) 07/06/22 11:09 Parainfluenza 3 (PCR) Not detected (NOT DETECT) 07/06/22 11:09 Parainfluenza 4 (PCR) Not detected (NOT DETECT) 07/06/22 11:09 RSV Type A (PCR) Not detected (NOT DETECT) 07/06/22 11:09 RSV Type B (PCR) Not detected (NOT DETECT) 07/06/22 11:09 Entero/Rhino (PCR) Not detected (NOT DETECT) 07/06/22 11:09 SARS-CoV-2 (PCR) Not detected (NOT DETECT) 07/06/22 11:09 Discharge Plan Discharge Patient Disposition: Admitted As Inpatient Admit Provider: Ara Caldera Clinical Impression: Acute respiratory failure with hypoxia, Chronic lymphocytic leukemia of B-cell type not having achieved remission, Current smoker Condition: Stable Discharge Diet: Cardiac Discharge Activity: Resume usual activity and Increase activity as tolerated Coding Level of Care Code ED Manager Msw for Chg Fwd Documented by User: Rupesh Amado MD 07/09/22 03:45 HPI - SOB/Dyspnea General: Chief Complaint: Shortness of Breath/Dyspnea Stated Complaint: possible pneumonia Time Seen by Provider: 07/06/22 10:32 [facility] ED PFS: Medical History (Updated 07/09/22 @ 00:02 by ADENIKE Hernandez) Anxiety 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) Degenerative arthritis Diverticulosis hospitalized with diverticulitis in 2003 GERD (gastroesophageal reflux disease) Glaucoma 3 History of Isamar thyroiditis Hyperlipidemia Hypertension Hypothyroidism Surgical History (Updated 07/06/22 @ 14:44 by Ara Caldera MD) History of carpal tunnel release right History of cataract surgery 2017 History of colonoscopy 03/2019 Dr Phan History of esophagogastroduodenoscopy (EGD) 03/2019 Dr Phan History of removal of cyst Removal of cysts from the back and left hand (ganglion cyst) History of subtotal thyroidectomy (~1984) History of tubal ligation Family History (Updated 07/06/22 @ 14:44 by Ara Caldera MD) Denies family history of Clotting disorder Lung disease Cancer Social History (Updated 07/06/22 @ 14:47 by Ara Caldera MD) Smoking and tobacco status: current every day smoker Alcohol intake: never Substance/Drug Use: never Household members: spouse Marital status: Physical Exam Neuro: LAYNE COMA SCALE: document GCS findings Layne coma scale total score: 15 Course Vital Signs: Vital signs: Vital Signs Temperature 98.2 F 07/08/22 15:35 Pulse Rate 95 07/08/22 15:35 Respiratory Rate 16 07/08/22 15:35 Blood Pressure 157/79 07/08/22 15:35 Pulse Oximetry 95 07/08/22 15:35 Oxygen Delivery Me thod Nasal Cannula 07/08/22 15:35 Oxygen Flow Rate 3 07/08/22 15:35 MDM - SOB/Dyspnea Medical Decision Making Patient is a nice 77-year-old female with a history of CLL here for complaints of dyspnea over the past few days. She is an everyday smoker without a known history of COPD. She arrives acutely hypoxic satting 86% on room air. She currently is on 3L and satting normally. She was given DuoNeb treatment here with slight improvement. Blood work shows a white count of 61.3 which is elevated compared to her chronic elevations secondary to her CLL. Her CRP is elevated at 261.5. She has a normal lactate and a normal procal. CXR showing no acute disease process. Respiratory panel collected and pending. UA is pending. Patient will require hospitalization for COPD exacerbation with hypoxia. I have spoken to Dr. Amado who will speak to hospitalist for admission. I discussed this case with VITOR Portillo. I reviewed documentation, labs, imaging. Rupesh Amado MD Emergency Medicine Lab Data 07/08/22 05:29 07/08/22 05:29 Labs/Radiology: Radiology Impressions Chest X-Ray 07/06/22 10:32 Impression: Atherosclerosis. Chest CTA 07/07/22 12:39 IMPRESSION: 1. No pulmonary embolism. 2. Mild diffuse bronchial wall thickening but greatest in the lower lobes. Most likely due to bronchitis. 3. Additional tree-in-bud airspace disease bilaterally. Most typical for endobronchial pneumonia or aspiration pneumonia. 4. Indeterminate mediastinal and hilar lymph nodes are probably reactive. Laboratory Results WBC 70.2 10^3/uL (4.0-10.0) H* 07/07/22 04:36 RBC 4.82 10^6/uL (4.1-5.3) 07/07/22 04:36 Hgb 14.2 g/dL (11.5-15.3) 07/07/22 04:36 Hct 44.6 % (37.0-47.0) 07/07/22 04:36 MCV 92.5 fl (81-99) 07/07/22 04:36 MCH 29.5 pg (28.0-34.0) 07/07/22 04:36 MCHC 31.8 g/dL (30.0-36.0) 07/07/22 04:36 RDW 13.5 % (12.1-15.1) 07/07/22 04:36 Plt Count 247 10^3/cmm (130-400) 07/07/22 04:36 MPV 10.1 fL (7.4-10.4) 07/07/22 04:36 Neut % (Auto) 26.8 % 07/07/22 04:36 Lymph % (Auto) 70.0 % 07/07/22 04:36 [place] % (Auto) 1.9 % 07/07/22 04:36 Eos % (Auto) 0.0 % 07/07/22 04:36 Baso % (Auto) 0.4 % 07/07/22 04:36 Neut # (Auto) 18.80 10^3/uL (1.8-7.7) H 07/07/22 04:36 Lymph # (Auto) 49.2 10^3/uL (0.8-4.8) H 07/07/22 04:36 [place] # (Auto) 1.3 10^3/uL (0.2-0.9) H 07/07/22 04:36 Eos # (Auto) 0.0 10^3/uL (0.0-0.8) 07/07/22 04:36 Baso # (Auto) 0.3 10^3/uL (0.0-0.1) H 07/07/22 04:36 Nucleated RBC % (auto) 0 % 07/07/22 04:36 Nucleated RBCs # 0.0 /100WBC 07/07/22 04:36 D-Dimer 1.06 ug/mIFEU (0-0.59) H 07/07/22 11:45 Sodium 133 mmol/L (136-145) L 07/07/22 04:36 Potassium 4.9 mmol/L (3.5-5.1) 07/07/22 04:36 Chloride 98 mmol/L (98-107) 07/07/22 04:36 Carbon Dioxide 25 mmol/L (22-29) 07/07/22 04:36 Anion Gap 14.9 (5-19) 07/07/22 04:36 BUN 20 mg/dL (8-23) 07/07/22 04:36 Creatinine 0.7 mg/dL (0.5-0.9) 07/07/22 04:36 GFR Calculation Not Reportable 07/07/22 04:36 Glucose 153 mg/dL (65-115) H 07/07/22 04:36 Calculated Osmolality 282 mOsm/kg (285-295) L 07/07/22 04:36 Lactic Acid 1.6 mmol/L (0.5-2.2) 07/06/22 10:58 Calcium 8.7 mg/dL (8.5-10.5) 07/07/22 04:36 Iron 40 ug/dL (37-145) 07/07/22 04:36 TIBC 197 mcg/dl 07/07/22 04:36 % Saturation 20.3 % (20-50) 07/07/22 04:36 Unsat Iron Binding 157 ug/dL (112-347) 07/07/22 04:36 Total Bilirubin 0.9 mg/dL (0.15-1.2) 07/07/22 04:36 AST 50 U/L (0-32) H 07/07/22 04:36 ALT 42 U/L (0-33) H 07/07/22 04:36 Alkaline Phosphatase 93 U/L (35-105) 07/07/22 04:36 Lactate Dehydrogenase 256 U/L (135-214) H 07/07/22 04:36 C-Reactive Protein 186.5 mg/L (0.0-4.9) H 07/07/22 04:36 NT-Pro-B Natriuret Pep 221 pg/mL (0-450) 07/06/22 10:34 Total Protein 6.2 g/dL (6.6-8.7) L 07/07/22 04:36 Albumin 3.1 g/dL (3.5-5.2) L 07/07/22 04:36 Globulin 3.1 g/dL (1.3-4.6) 07/07/22 04:36 Vitamin B12 878 pg/mL (232-1245) 07/07/22 04:36 Folate 18.0 ng/mL (4.8-37.3) 07/07/22 04:36 Procalcitonin 0.12 ng/mL (0-0.5) 07/06/22 10:58 Urine Color Yellow (Yellow) 07/06/22 12:31 Urine Appearance Sl hazy (CLEAR) A 07/06/22 12:31 Urine pH 6 (5-7) 07/06/22 12:31 Ur Specific [place] 1.020 (1.005-1.030) 07/06/22 12:31 Urine Protein 2+ (Negative) H 07/06/22 12:31 Urine Glucose (UA) Norm (Normal) 07/06/22 12:31 Urine Ketones 1+ (Negative) H 07/06/22 12:31 Urine Blood 3+ (Negative) H 07/06/22 12:31 Urine Nitrate Negative (Negative) 07/06/22 12:31 Urine Bilirubin 1+ (Negative) H 07/06/22 12:31 Urine Urobilinogen 8 mg/dL (Negative) H 07/06/22 12:31 Ur Leukocyte Esterase 1+ (Negative) H 07/06/22 12:31 Urine RBC 0-4 /hpf (0-2) H 07/06/22 12:31 Urine WBC 10-15 /hpf (0-5) H 07/06/22 12:31 Ur Squamous Epith Cells 0-4 /hpf (0-5) H 07/06/22 12:31 Ur Transition Epith Cell 0-4 /hpf 07/06/22 12:31 Amorphous Sediment Not Reportable 07/06/22 12:31 Urine Bacteria 2+ /hpf (NONE) H 07/06/22 12:31 Hyaline Casts 10-15 /lpf H 07/06/22 12:31 Urine Mucus Trace /hpf 07/06/22 12:31 Nasal Influ A H1 2008 PCR Not detected (NOT DETECT) 07/06/22 11:09 Adenovirus (PCR) Not detected (NOT DETECT) 07/06/22 11:09 C. pneumoniae DNA (PCR) Not detected (NOT DETECT) 07/06/22 11:09 Coronavirus 229E (PCR) Not detected (NOT DETECT) 07/06/22 11:09 Human Metapneumovir PCR Not detected (NOT DETECT) 07/06/22 11:09 Influenza A (H1) PCR Not detected (NOT DETECT) 07/06/22 11:09 Influenza A (H3) PCR Not detected (NOT DETECT) 07/06/22 11:09 Influenza Type A (PCR) Not detected (NOT DETECT) 07/06/22 11:09 Influenza Type B (PCR) Not detected (NOT DETECT) 07/06/22 11:09 M. pneumoniae (PCR) Not detected (NOT DETECT) 07/06/22 11:09 Parainfluenza 1 (PCR) Not detected (NOT DETECT) 07/06/22 11:09 Parainfluenza 2 (PCR) Not detected (NOT DETECT) 07/06/22 11:09 Parainfluenza 3 (PCR) Not detected (NOT DETECT) 07/06/22 11:09 Parainfluenza 4 (PCR) Not detected (NOT DETECT) 07/06/22 11:09 RSV Type A (PCR) Not detected (NOT DETECT) 07/06/22 11:09 RSV Type B (PCR) Not detected (NOT DETECT) 07/06/22 11:09 Entero/Rhino (PCR) Not detected (NOT DETECT) 07/06/22 11:09 SARS-CoV-2 (PCR) Not detected (NOT DETECT) 07/06/22 11:09 Discharge Plan Discharge Patient Disposition: Admitted As Inpatient Admit Provider: Ara Caldera Clinical Impression: Acute respiratory failure with hypoxia, Chronic lymphocytic leukemia of B-cell type not having achieved remission, Current smoker Condition: Stable Discharge Diet: Cardiac Discharge Activity: Resume usual activity and Increase activity as tolerated Coding Level of Care Code ED Manager Msw for Estela Lino
[2022-07-06 11:23] LABS: Basophils # 0.3 10^3/uL (0.0-0.1); Basophils % 0.4 %; Eosinophils # 0.1 10^3/uL (0.0-0.8); Eosinophils % 0.1 %; Hematocrit 49.4 % (37.0-47.0); Hemoglobin 16.1 g/dL (11.5-15.3); Lymphocytes # 40.4 10^3/uL (0.8-4.8); Lymphocytes % 65.8 %; Mean Corpuscular HGB Conc 32.6 g/dL (30.0-36.0); Mean Corpuscular Hemoglobin 29.1 pg (28.0-34.0); Mean Corpuscular Volume 89.3 fl (81-99); Mean Platelet Volume 9.8 fL (7.4-10.4); Monocytes # 2.3 10^3/uL (0.2-0.9); Monocytes % 3.8 %; Neutrophils % 29.1 %; Nucleated Red Blood Cells % 0 %; Platelet Count 293 10^3/cmm (130-400); Red Blood Count 5.53 10^6/uL (4.1-5.3); Red Cell Distribution Width 13.5 % (12.1-15.1)
[2022-07-06 11:39] LABS: Lactic Sepsis W/Reflex 1.6 mmol/L (0.5-2.2)
[2022-07-06 11:40] LABS: Alanine Aminotransferase 23 U/L (0-33); Albumin Level 3.9 g/dL (3.5-5.2); Alkaline Phosphatase 103 U/L (35-105); Anion Gap 15.9 (5-19); Aspartate Amino Transferase 20 U/L (0-32); Blood Urea Nitrogen 14 mg/dL (8-23); C Reactive Protein 261.5 mg/L (0.0-4.9); Calcium 9.4 mg/dL (8.5-10.5); Carbon Dioxide 28 mmol/L (22-29); Chloride 90 mmol/L (98-107); Globulin 3.7 g/dL (1.3-4.6); Glucose 121 mg/dL (65-115); Osmolality Calculated 272 mOsm/kg (285-295); Potassium 3.9 mmol/L (3.5-5.1); Sodium 130 mmol/L (136-145); Total Bilirubin 1.8 mg/dL (0.15-1.2); Total Protein 7.6 g/dL (6.6-8.7)
[2022-07-06 11:42] LABS: Slide Review Slide Review Perform
[2022-07-06 11:43] LABS: White Blood Count 61.3 10^3/uL (4.0-10.0)
[2022-07-06 11:47] LABS: Procalcitonin 0.12 ng/mL (0-0.5)
[2022-07-06] MEDS: doxycycline 100 MG in sodium chloride 0.9% (plus) 100 ML IV (12:37)
[2022-07-06] MEDS: albuterol 2.5 mg/3 mL Neb INHALATION (12:38)
--- NOTE | 2022-07-06 12:55 | PM.HP ---
Providers/Chief Complaint Admitting Physician: Ara Caldera MD Primary Care Provider: REYNA Patel Chief Complaint: possible pneumonia History of Present Illness Sue Delgado is a 77 year old female who presented to the emergency room with chief complaint of cough and difficulty breathing. She has what sounds like a pretty classic smoker's morning cough at baseline, but about a week ago she started having increasing sinus drainage and runny nose that she attributed to allergies. Her cough has been more persistent throughout the day and escalating in severity. She has terrible paroxysms of coughing that are difficult to stop. She has not noted any blood in her sputum. Has been brownish-yellow and thick. She has felt hot and had some sweats during the day the last couple of days but not noted any definite fevers. She does have a history of CLL and follows with Dr. Yarbrough. She is not on any current treatment. Counts have been fairly stable for the last few years in the upper 40s. She denies any recent changes in weight, night sweats or regular fevers. She last saw Dr. Yarbrough in February. No sore throat. No nausea or vomiting. No chest pain. With her symptoms not improving and seeming to get worse her and her were concerned she might have pneumonia prompting the visit to the emergency room. On arrival oxygen saturations were noted to be low at 86% on room air. She has had episodes of bronchitis in the past but never formally been diagnosed with COPD. She does smoke a pack of cigarettes a day though admits she has not been smoking as much the last few days. She has never required hospitalization for breathing nor oxygen. She was placed on 3 L by nasal cannula and with paroxysms of coughing will again have saturations drop into the mid to upper 80s with quick recovery. Chest x-ray did not show any definite pneumonia. Viral respiratory panel was negative. Her white count was noted to be up to 61,000. Given new oxygen need and symptoms she is being admitted for further treatment and monitoring. She received breathing treatment, doxycycline and Solu-Medrol in the emergency room. She is not on any chronic respiratory medications. Review of Systems Const: Denies: fever(s) (no documented fevers, but feels hot sometimes with sweating during day), change in weight or night sweats Eyes: Reports: other (says steroids worsen my gluacoma so don't take unless have to ) ENMT: Reports: nasal congestion and post nasal drip Card: Reports: dyspnea on exertion; Denies: chest pain, palpitations or edema Resp: Reports: dyspnea, productive cough and chest congestion; Denies: pain on inspiration or hemoptysis GI: Reports: heartburn and diarrhea (Sometimes, including occasional incontinence of bowels, hx diverticulitis); Denies: nausea, vomiting or hematochezia : Reports: urinary frequency; Denies: dysuria Musc: Reports: joint pain (primarily hands and wrists) Skin/Breast: Denies: rash Sam/Lymph: Denies: easy bruising or easy bleeding All/Imm: Reports: itchy eyes and seasonal rhinorrhea Medications/Allergies Home Medications Medication Instructions Recorded Confirmed Last Taken Type multivitamin 1 tab PO DAILY 08/08/20 07/06/22 07/06/22 History omeprazole 20 mg capsule,delayed 20 mg PO QAM 08/08/20 07/06/22 07/06/22 History release spironolactone 25 mg tablet 25 mg PO DAILY@08/08/20 07/06/22 07/06/22 History lovastatin 20 mg tablet 40 mg PO DAILY@18 08/27/21 07/06/22 07/05/22 History Saccharomyces boulardii 250 mg 5,000 mmu cells PO DAILY 02/26/22 07/06/22 07/05/22 History capsule (Daily Probiotic (S. boulardii)) alprazolam 0.5 mg tablet 0.5 mg PO BID PRN Anxiety 02/26/22 07/06/22 Unknown History krill oil 500 mg capsule 500 mg PO BEDTIME 02/26/22 07/06/22 07/05/22 History levothyroxine 75 mcg tablet 75 mcg PO DAILY@07 02/26/22 07/06/22 07/06/22 History (Synthroid) oxycodone 5 mg tablet 5 - 10 mg PO DAILY PRN pain 30 06/10/22 07/06/22 07/06/22 Rx days #45 tabs cyclobenzaprine 10 mg tablet 10 mg PO BID PRN Muscle Spasm 07/06/22 07/06/22 Unknown History Allergies Allergy/AdvReac Type Severity Reaction Status Date / Time naproxen Allergy Unknown Verified 02/26/22 12:30 steroids Allergy ADR-Blurry Uncoded 02/26/22 12:30 Vision PFSH Acute PFSH: Medical History (Updated 07/06/22 @ 15:00 by Ara Caldera MD) Anxiety 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) Degenerative arthritis Diverticulosis hospitalized with diverticulitis in 2003 GERD (gastroesophageal reflux disease) Glaucoma 3 History of Isamar thyroiditis Hyperlipidemia Hypertension Hypothyroidism Surgical History (Updated 07/06/22 @ 14:44 by Ara Caldera MD) History of carpal tunnel release right History of cataract surgery 2017 History of colonoscopy 03/2019 Dr Phan History of esophagogastroduodenoscopy (EGD) 03/2019 Dr Phan History of removal of cyst Removal of cysts from the back and left hand (ganglion cyst) History of subtotal thyroidectomy (~1984) History of tubal ligation Family History (Updated 07/06/22 @ 14:44 by Ara Caldera MD) Denies family history of Clotting disorder Lung disease Cancer Social History (Updated 07/06/22 @ 14:47 by Ara Caldera MD) Smoking and tobacco status: current every day smoker Alcohol intake: never Household members: spouse Marital status: Vitals/I&O/Wt Last Vital Signs Temp 97.7 F 07/06/22 10:20 Pulse 107 H 07/06/22 12:42 Resp 18 07/06/22 12:38 BP 161/89 07/06/22 11:04 Pulse Ox 94 07/06/22 12:38 O2 Del Method Nasal Cannula 07/06/22 12:38 O2 Flow Rate 3 07/06/22 12:38 Weight last 48 hrs Weight 75.75 kg Physical Exam Narrative: Patient is awake and alert, able to provide history. Frequent paroxysms of coughing with varied amounts of sputum production. Oxygen saturations dropped with paroxysms. Normocephalic. Extraocular movements are intact. Nasopharynx with clear rhinorrhea. Oropharynx with dry membranes, postnasal drainage noted, no erythema. Neck is supple. Lungs with inspiratory and expiratory wheezes bilaterally. No rales or rhonchi. Retractions noted with coughing. Abdomen is soft, nontender. No pitting edema. No calf tenderness. Skin is dry. 2+ peripheral pulses x4. Speech clear, face symmetric, moves all extremities. Data 07/06/22 10:58 07/06/22 10:58 Other Labs: Radiology Impressions Chest X-Ray 07/06/22 10:32 Findings: No nodules, masses or effusions are seen. The heart is normal. The pulmonary vascularity is not increased. No pneumonia or pneumothorax is seen. The aortic arch and descending thoracic aorta show minimal calcification and tortuosity. There are calcifications overlying the left greater tuberosity which may represent calcific bursitis and/or tendinitis. Impression: Atherosclerosis. Laboratory Results WBC 61.3 10^3/uL (4.0-10.0) H* 07/06/22 10:58 RBC 5.53 10^6/uL (4.1-5.3) H 07/06/22 10:58 Hgb 16.1 g/dL (11.5-15.3) H 07/06/22 10:58 Hct 49.4 % (37.0-47.0) H 07/06/22 10:58 MCV 89.3 fl (81-99) 07/06/22 10:58 MCH 29.1 pg (28.0-34.0) 07/06/22 10:58 MCHC 32.6 g/dL (30.0-36.0) 07/06/22 10:58 RDW 13.5 % (12.1-15.1) 07/06/22 10:58 Plt Count 293 10^3/cmm (130-400) 07/06/22 10:58 MPV 9.8 fL (7.4-10.4) 07/06/22 10:58 Neut % (Auto) 29.1 % 07/06/22 10:58 Lymph % (Auto) 65.8 % 07/06/22 10:58 [place] % (Auto) 3.8 % 07/06/22 10:58 Eos % (Auto) 0.1 % 07/06/22 10:58 Baso % (Auto) 0.4 % 07/06/22 10:58 Neut # (Auto) 17.80 10^3/uL (1.8-7.7) H 07/06/22 10:58 Lymph # (Auto) 40.4 10^3/uL (0.8-4.8) H 07/06/22 10:58 [place] # (Auto) 2.3 10^3/uL (0.2-0.9) H 07/06/22 10:58 Eos # (Auto) 0.1 10^3/uL (0.0-0.8) 07/06/22 10:58 Baso # (Auto) 0.3 10^3/uL (0.0-0.1) H 07/06/22 10:58 Nucleated RBC % (auto) 0 % 07/06/22 10:58 Nucleated RBCs # 0.0 /100WBC 07/06/22 10:58 Sodium 130 mmol/L (136-145) L 07/06/22 10:58 Potassium 3.9 mmol/L (3.5-5.1) 07/06/22 10:58 Chloride 90 mmol/L (98-107) L 07/06/22 10:58 Carbon Dioxide 28 mmol/L (22-29) 07/06/22 10:58 Anion Gap 15.9 (5-19) 07/06/22 10:58 BUN 14 mg/dL (8-23) 07/06/22 10:58 Creatinine 0.9 mg/dL (0.5-0.9) 07/06/22 10:58 GFR Calculation Not Reportable 07/06/22 10:58 Glucose 121 mg/dL (65-115) H 07/06/22 10:58 Calculated Osmolality 272 mOsm/kg (285-295) L 07/06/22 10:58 Lactic Acid 1.6 mmol/L (0.5-2.2) 07/06/22 10:58 Calcium 9.4 mg/dL (8.5-10.5) 07/06/22 10:58 Total Bilirubin 1.8 mg/dL (0.15-1.2) H 07/06/22 10:58 AST 20 U/L (0-32) 07/06/22 10:58 ALT 23 U/L (0-33) 07/06/22 10:58 Alkaline Phosphatase 103 U/L (35-105) 07/06/22 10:58 C-Reactive Protein 261.5 mg/L (0.0-4.9) H 07/06/22 10:58 Total Protein 7.6 g/dL (6.6-8.7) 07/06/22 10:58 Albumin 3.9 g/dL (3.5-5.2) 07/06/22 10:58 Globulin 3.7 g/dL (1.3-4.6) 07/06/22 10:58 Procalcitonin 0.12 ng/mL (0-0.5) 07/06/22 10:58 Urine Color Yellow (Yellow) 07/06/22 12:31 Urine Appearance Sl hazy (CLEAR) A 07/06/22 12:31 Urine pH 6 (5-7) 07/06/22 12:31 Ur Specific [place] 1.020 (1.005-1.030) 07/06/22 12:31 Urine Protein 2+ (Negative) H 07/06/22 12:31 Urine Glucose (UA) Norm (Normal) 07/06/22 12:31 Urine Ketones 1+ (Negative) H 07/06/22 12:31 Urine Blood 3+ (Negative) H 07/06/22 12:31 Urine Nitrate Negative (Negative) 07/06/22 12:31 Urine Bilirubin 1+ (Negative) H 07/06/22 12:31 Urine Urobilinogen 8 mg/dL (Negative) H 07/06/22 12:31 Ur Leukocyte Esterase 1+ (Negative) H 07/06/22 12:31 Urine RBC 0-4 /hpf (0-2) H 07/06/22 12:31 Urine WBC 10-15 /hpf (0-5) H 07/06/22 12:31 Ur Squamous Epith Cells 0-4 /hpf (0-5) H 07/06/22 12:31 Ur Transition Epith Cell 0-4 /hpf 07/06/22 12:31 Amorphous Sediment Not Reportable 07/06/22 12:31 Urine Bacteria 2+ /hpf (NONE) H 07/06/22 12:31 Hyaline Casts 10-15 /lpf H 07/06/22 12:31 Urine Mucus Trace /hpf 07/06/22 12:31 Nasal Influ A H1 2008 PCR Not detected (NOT DETECT) 07/06/22 11:09 Adenovirus (PCR) Not detected (NOT DETECT) 07/06/22 11:09 C. pneumoniae DNA (PCR) Not detected (NOT DETECT) 07/06/22 11:09 Coronavirus 229E (PCR) Not detected (NOT DETECT) 07/06/22 11:09 Human Metapneumovir PCR Not detected (NOT DETECT) 07/06/22 11:09 Influenza A (H1) PCR Not detected (NOT DETECT) 07/06/22 11:09 Influenza A (H3) PCR Not detected (NOT DETECT) 07/06/22 11:09 Influenza Type A (PCR) Not detected (NOT DETECT) 07/06/22 11:09 Influenza Type B (PCR) Not detected (NOT DETECT) 07/06/22 11:09 M. pneumoniae (PCR) Not detected (NOT DETECT) 07/06/22 11:09 Parainfluenza 1 (PCR) Not detected (NOT DETECT) 07/06/22 11:09 Parainfluenza 2 (PCR) Not detected (NOT DETECT) 07/06/22 11:09 Parainfluenza 3 (PCR) Not detected (NOT DETECT) 07/06/22 11:09 Parainfluenza 4 (PCR) Not detected (NOT DETECT) 07/06/22 11:09 RSV Type A (PCR) Not detected (NOT DETECT) 07/06/22 11:09 RSV Type B (PCR) Not detected (NOT DETECT) 07/06/22 11:09 Entero/Rhino (PCR) Not detected (NOT DETECT) 07/06/22 11:09 SARS-CoV-2 (PCR) Not detected (NOT DETECT) 07/06/22 11:09 Prior Laboratory Tests 02/13/19 02/19/20 08/08/20 11:50 12:55 13:19 WBC 43.3 H* 46.0 H* 54.9 H* 02/10/21 08/27/21 02/26/22 12:59 10:47 11: WBC 42.6 H* 48.9 H* 47.5 H* A&P Assessment and plan (1) COPD (chronic obstructive pulmonary disease): Has not had a formal COPD diagnosis previously, but long time smoker with prior episodes of bronchitis and pretty classic smoker's cough at baseline. Never required oxygen therapy or hospitalization previously. Currentyly with acute on chronic COPD exacerbation associated with significant paroxysms of coughing and hypoxemia. Inciting event appears to be seasonal allergies. No evidence of viral process. Cannot rule out sinus or bronchial bacterial process, but currently no evidence of pneumonia. No pleuritic pain or calf pain or swelling. No hemoptysis. Breathing treatments Inhaled and systemic steroids Nasal steroids and antihistamine Reviewed with patient and that steroids are currently needed to decrease inflammation in the lung/airways to help breathing and plan is currently for a short prednisone course Doxycycline empirically, discussed with patient avoidance of sun exposure Oxygen therapy, weaning as able to room air Flutter device Guaifenesin for cough Monitor response to treatment Depending on clinical course, may require oxygen at discharge (2) Chronic lymphocytic leukemia of B-cell type not having achieved remission: Followed observantly by Dr aYrbrough, current WBC higher than prior values, likely due to acute illness. Not demonstrating chronic B symptoms, but had some sweats this past week. 40.4 lymphocyte count similar to prior values. Touched base briefly with oncology and okay to treat short term with steroids as needed. Monitor counts with treatment Check LDH (3) Hypertension: Chronically on spironolactone for blood pressure or fluid retention Holding spironolactone currently due to low sodium and chloride with elevated specific gravity, clinically seem a bit dry Will have to monitor blood pressures for need to resume or consider alternative agent Check BNP (4) Hypothyroidism: Chronically on levothyroxine Continue at home dosing (5) Hyperlipidemia: Chronically on lovastatin Formulary statin while here (6) GERD (gastroesophageal reflux disease): Chronically on omeprazole Formulary PPI while here (7) Anxiety: Chronically on xanax, taking 2-4 per day most days Home xanax continued with a prn frequency of q6h for now given breathing treatments and steroid regimen (8) Degenerative arthritis: Chronically on oxycodone IR as needed, taking 1-2 per day when pain is severe Continued home oxycodone IR with q8h frequency for moderate to severe pain, tylenol for mild pain (9) Nicotine dependence, cigarettes, with other nicotine-induced disorders: Pack per day smoker Nicotine patch ordered Plan Blood sugar of 116-121 without history of diabetes Elevated total bilirubin without other LFT aberrations Polycythemia, presumably secondary from smoking/COPD Abnormal urinalysis with squamous cells noted and no new urinary symptoms Observation admission for now IVFs Recheck electrolytes, blood sugar, CBC, CRP and bilirubin in am Amlodipine currently prn significant blood pressure elevation while home spironolactone held Other care as noted above Anticipate DC home with follow up to PCP; currently only has a nurse practitioner and would like to see about a new physician who could prescribe her chronic xanax and (after Dr Yarbrough retires) her chronic oxycodone IR without having to establish care with psychiatry or pain clinic, in addition to her other chronic medications. May require oxygen at discharge, depending on clinical course FULL CODE Attestations Medical Necessity Statement*: Currently anticipate a stay less than two midnights in a patient with hypoxemia requiring supplemental oxygen secondary to what appears to be acute COPD exacerbation, precipitated by seasonal allergies. She has not had focused treatment for COPD yet so she may improve quickly with treatment initiated. Comorbidities are as noted above. and Moderate Time for a total of 60 minutes, includes reviewing past or interval history, examining/interviewing patient, placing orders, communicating with other healthcare providers and documenting encounter Diagnoses COPD (chronic obstructive pulmonary disease) J44.9 Chronic lymphocytic leukemia of B-cell type not having achieved remission C91.10 Hypertension I10 Hypothyroidism E03.9 Hyperlipidemia E78.5 GERD (gastroesophageal reflux disease) K21.9 Anxiety F41.9 Degenerative arthritis M19.90 Nicotine dependence, cigarettes, with other nicotine-induced disorders F17.218
[2022-07-06 13:02] LABS: Glucose Urine UA Norm (Normal); Ketones Urine 1+ (Negative); Protein Urine 2+ (Negative); Urine Appearance SL Hazy (CLEAR); Urine Color Yellow (Yellow); pH Urine 6 (5-7)
[2022-07-06 13:03] LABS: Add Urine Microscopic? YES; Bacteria Urine 2+ /hpf; Bilirubin Urine 1+ (Negative); Blood Urine 3+ (Negative); Leukocyte Esterase Urine 1+ (Negative); Mucus Urine TRACE /hpf; Nitrate Urine Negative (Negative); RBC Urine 0-4 /hpf (0-2); Squamous Epithelial Cell Urine 0-4 /hpf (0-5); Transitional Epi Cells Urine 0-4 /hpf; Urobilinogen Urine 8 mg/dL (Negative)
[2022-07-06 13:05] LABS: Add Urine Culture? Yes
[2022-07-06 13:11] LABS: Adenovirus Not Detected (NOT DETECT); Chlamydia Pneumoniae Not Detected (NOT DETECT); Coronavirus 229E,HKU1,NL63,OC4 Not Detected (NOT DETECT); Human Metapneumovirus Not Detected (NOT DETECT); Human Rhinovirus/Enterovirus Not Detected (NOT DETECT); Influenza A Not Detected (NOT DETECT); Influenza A H1 Not Detected (NOT DETECT); Influenza A H1-2009 Not Detected (NOT DETECT); Influenza A H3 Not Detected (NOT DETECT); Influenza B Not Detected (NOT DETECT); Mycoplasma Pneumoniae Not Detected (NOT DETECT); Parainfluenza Virus Type 1 Not Detected (NOT DETECT); Parainfluenza Virus Type 2 Not Detected (NOT DETECT); Parainfluenza Virus Type 3 Not Detected (NOT DETECT); Parainfluenza Virus Type 4 Not Detected (NOT DETECT); Respiratory Syncytial Virus A Not Detected (NOT DETECT); Respiratory Syncytial Virus B Not Detected (NOT DETECT); SARS-COV-2 Not Detected (NOT DETECT)
[2022-07-06 14:25] LABS: Lactate Dehydrogenase 207 U/L (135-214); NT Pro B Type Natriuretic Pept 221 pg/mL (0-450)
[2022-07-06] MEDS: predniSONE 20 mg Tablet 40 MG PO (16:04)
[2022-07-06] MEDS: enoxaparin 40 mg/0.4 mL Syringe SUBCUT (16:05)
[2022-07-06] MEDS: sodium chlor 0.9% + KCl 20 mEq 20 MEQ/1,000 ML BAG 75 MEQ IV (16:06)
[2022-07-06] MEDS: atorvastatin 40 mg Tablet 20 MG PO (17:01)
[2022-07-06] MEDS: docusate sodium 100 mg Capsule PO (17:01)
[2022-07-06] MEDS: doxycycline 100 mg Tablet PO (20:40)
[2022-07-06] MEDS: budesonide 0.5 mg/2 mL Neb INHALATION (22:03)
[2022-07-07] VITALS (10 sets, daily range): BP systolic 117–149; BP diastolic 70–82; PULSE 85–99; RESP 16–20; TEMP 36.4–36.7; O2SAT 92–95
[2022-07-07 05:07] LABS: Basophils # 0.3 10^3/uL (0.0-0.1); Basophils % 0.4 %; Hematocrit 44.6 % (37.0-47.0); Hemoglobin 14.2 g/dL (11.5-15.3); Lymphocytes # 49.2 10^3/uL (0.8-4.8); Mean Corpuscular HGB Conc 31.8 g/dL (30.0-36.0); Mean Corpuscular Hemoglobin 29.5 pg (28.0-34.0); Mean Corpuscular Volume 92.5 fl (81-99); Mean Platelet Volume 10.1 fL (7.4-10.4); Monocytes # 1.3 10^3/uL (0.2-0.9); Monocytes % 1.9 %; Neutrophils % 26.8 %; Nucleated Red Blood Cells % 0 %; Platelet Count 247 10^3/cmm (130-400); Red Blood Count 4.82 10^6/uL (4.1-5.3); Red Cell Distribution Width 13.5 % (12.1-15.1)
[2022-07-07 05:23] LABS: Alanine Aminotransferase 42 U/L (0-33); Albumin Level 3.1 g/dL (3.5-5.2); Alkaline Phosphatase 93 U/L (35-105); Blood Urea Nitrogen 20 mg/dL (8-23); C Reactive Protein 186.5 mg/L (0.0-4.9); Calcium 8.7 mg/dL (8.5-10.5); Carbon Dioxide 25 mmol/L (22-29); Chloride 98 mmol/L (98-107); Globulin 3.1 g/dL (1.3-4.6); Glucose 153 mg/dL (65-115); Osmolality Calculated 282 mOsm/kg (285-295); Sodium 133 mmol/L (136-145); Total Bilirubin 0.9 mg/dL (0.15-1.2); Total Protein 6.2 g/dL (6.6-8.7)
[2022-07-07] MEDS: sodium chlor 0.9% + KCl 20 mEq 20 MEQ/1,000 ML BAG 75 MEQ IV (05:24)
[2022-07-07 05:27] LABS: Anion Gap 14.9 (5-19); Lactate Dehydrogenase 256 U/L (135-214); Potassium 4.9 mmol/L (3.5-5.1)
[2022-07-07 05:28] LABS: Aspartate Amino Transferase 50 U/L (0-32)
[2022-07-07 05:41] LABS: White Blood Count 70.2 10^3/uL (4.0-10.0)
[2022-07-07 05:42] LABS: Slide Review Slide Review Perform
[2022-07-07] MEDS: pantoprazole DR 40 mg Tablet PO (06:12)
[2022-07-07] MEDS: levothyroxine 75 mcg Tablet PO (06:12)
[2022-07-07] MEDS: budesonide 0.5 mg/2 mL Neb INHALATION ×2 (07:53→21:17)
[2022-07-07] MEDS: ipratropium-albuterol 3 mL Neb INHALATION ×3 (07:53→21:18)
[2022-07-07] MEDS: doxycycline 100 mg Tablet PO ×2 (08:32→20:55)
[2022-07-07] MEDS: loratadine 10 mg Tablet PO (08:32)
[2022-07-07] MEDS: docusate sodium 100 mg Capsule PO (08:32)
[2022-07-07] MEDS: predniSONE 20 mg Tablet 40 MG PO (08:32)
--- NOTE | 2022-07-07 10:31 | PC.CHAP ---
Pastoral Care Encounter/Spiritual Assessment Type of Contact [] Declined plate molder visit [] Patient/Family/Request visit [] Outpatient visit [] Follow-up visit [] Physician referral [] Code/Alert [x] Routine visit [] Staff referral [] Actively dying [] Patient sleeping [] Family support [] [] Out of room [] Palliative care [] [] Receiving care in room [] Pre-surgical visit [] Trauma [] Long length of stay [] ICU visit [] Other: Relational/Emotional Strength [x] Patient feels connected with others/family/visitors/staff [] Distress [] Loneliness/isolation [] Abandonment Spirituality of Patient [x] Person of Nadia [] Attends Mu-Ism of their Nadia [x] Believes in Prayer [] Reads Bible or Hoahaoism materials [] There are Spiritual issues to be addressed Gas Distribution Supervisor Interventions [x] Prayer [x] Active listening [] Non-anxious presence [x] Spiritual/emotional support [] Crisis/trauma care [] Spiritual counseling [] Bereavement support [] Provided bereavement packet [] Provided Bible/devotional materials [] Provided toy/stuffed animal, coloring book to patient or family member [] Provided Communion [] Anointing/[place] [] Salvation [x] Completed spiritual assessment [] Other: Impact on Illness or Injury [] Angry [] Fearful [] Anxious [] Often cries [] Exhaustion [] Unable to work [] Unable to attend hoahaoism [] Unable to walk/stand [] Unable to read [] Unable to drive [] Unable to eat/drink [] Unable to sleep [] Unable to be with family [] Patient intubated [] Other: Summary Time spent with patient 5 min
[2022-07-07] MEDS: ALPRAZolam 0.5 mg Tablet PO (10:53)
[2022-07-07] MEDS: levoFLOXacin 750 mg Tablet PO (11:38)
[2022-07-07] MEDS: benzonatate 100 mg Capsule 200 MG PO ×3 (12:02→20:55)
[2022-07-07] MEDS: guaiFENesin-codeine UDC 10 mL 5 ML PO ×2 (12:02→18:10)
[2022-07-07 12:12] LABS: D Dimer 1.06 ug/mIFEU (0-0.59)
--- NOTE | 2022-07-07 12:39 | CT_ITS ---
WS: [id number] CT CHEST ANGIOGRAPHY WITH REFORMATS HISTORY: elevated dimer, hypoxia TECHNIQUE: Contiguous axial images are obtained through the chest during arterial injection of intrav enous contrast. Images are reconstructed to evaluate the pulmonary arteries. MIP imaging also reviewe d. All CT scans at [facility] use at least one of these dose optimization techniques: automat ed exposure control; mA and/or kV adjustment per patient size (includes targeted exams where dose is matched to clinical indication); or iterative reconstruction. CONTRAST: Omnipaque 350; 100 mL IV. DLP: 367.41 mGy.cm COMPARISON: 06/17/2005 and 01/27/2021 No pulmonary emboli or filling defects in the pulmonary artery through the lobar and segmental branch es. Mild diffuse bronchial wall thickening with a few tree-in-bud airspace opacifications bilaterally . Subsegmental atelectasis in the RIGHT lower lobe. No pericardial or pleural effusions. Atherosclero sis aorta. No aneurysm or dissection. Mild prominence of the mediastinal and hilar lymph nodes. RIGHT hilar lymph node measures up to 11 mm. These are probably reactive. Mildly prominent heart. Mild enlargement of the RIGHT heart chambers. There is very slight flattening of the interventricular septum. Small hiatal hernia. Stomach is moderately distended with fluid. Increase in thoracic kyphosis. CT/CT angio chest PE protcl [id number] IMPRESSION: 1. No pulmonary embolism. 2. Mild diffuse bronchial wall thickening but greatest in the lower lobes. Mos t likely due to bronchitis. 3. Additional tree-in-bud airspace disease bilaterally. Most typical for endob ronchial pneumonia or aspiration pneumonia. 4. Indeterminate mediastinal and hilar lymph nodes are probably reactive.
[2022-07-07] MEDS: iohexol 350 mg/mL 500 mL Btl (per mL) IV (13:51)
--- NOTE | 2022-07-07 14:31 | PM.PN ---
Subjective Subjective: Hospital course, labs appreciated. On examination patient lying comfortably in bed on 2 L of oxygen supplementation. States feeling better. Complaining of multiple episodes of bowel movements. She thinks she is having multiple episodes because of she is on stool softener though she has been asking them not to give her the same. Requesting if stool softeners can be removed. Patient still having bouts of cough. Denies any nausea, vomiting, headache. Denies any abdominal pain. Vitals/I&O/Wt Last Vital Signs Temp 97.6 F 07/07/22 08:00 Pulse 99 07/07/22 13:33 Resp 18 07/07/22 13:28 BP 149/82 07/07/22 08:00 Pulse Ox 92 07/07/22 13:28 O2 Del Method Nasal Cannula 07/07/22 13:28 O2 Flow Rate 2 07/07/22 13:28 07/06/22 07/07/22 07/07/22 22:59 06:59 14:59 Intake Total 340 / 440 1237.5 / 1677.5 360 / 360 Balance 340 / 440 1237.5 / 1677.5 360 / 360 Weight last 48 hrs Weight 75.75 kg Weight 75.75 kg Physical Exam Narrative: General: No acute distress, AO x3 HEENT: PERRLA, pupils bilaterally equal and reactive Chest: Bilateral bronchial breath sounds all over lung dixon with occasional rhonchi and fine crackles CVS: S1-S2 regular, no murmurs, no tachycardia, no gallops, no rubs Abdomen: Soft, nontender, no organomegaly, bowel sounds present Neuro: No focal deficits, no facial deformity, AO x3, power 5/5 in all limbs Data 07/07/22 04:36 07/07/22 04:36 Micro: Microbiology 07/06/22 11:33 Gram Stain - Final Sputum - Expectorated Sputum Sputum Culture - Preliminary A&P Assessment and plan (1) Hypoxia: Most likely in setting of COPD exacerbation. Pneumonia less likely. But patient is immunocompromise given CLL. Respiratory viral panel negative. Sputum culture pending. Oxygen supplementation keeping saturation over 90%. Check D-dimer. Depending on D-dimer plan for CTA versus CT chest. Check MRSA swab Given immunocompromise status for now empirically start patient on oral Levaquin and continue doxycycline 100 mg twice daily. (2) COPD (chronic obstructive pulmonary disease): Report 40DuoNebs every 6 hour, budesonide twice daily. Milligrams oral daily. Patient seems to be improving. Hold off on switching to IV steroids. Tessalon Perles 200 mg 3 times daily along with Robitussin AC 5 mL every 6 as needed. (3) Chronic lymphocytic leukemia of B-cell type not having achieved remission: Followed observantly by Dr Yarbrough, current WBC higher than prior values, likely due to acute illness. Not demonstrating chronic B symptoms, but had some sweats this past week. 40.4 lymphocyte count similar to prior values. Touched base briefly with oncology and okay to treat short term with steroids as needed. (4) Hypertension: Goal blood pressure less than 140/90 mmHg. Chronically on spironolactone. Spironolactone held for now given dehydration on admission. Continue to hold. Monitor blood pressure. Stop IV fluids. (5) Hypothyroidism: Continue home dose of levothyroxine. (6) Hyperlipidemia: Continue statins. (7) GERD (gastroesophageal reflux disease): (8) Anxiety: Chronically on xanax, taking 2-4 per day most days Home xanax continued with a prn frequency of q6h for now given breathing treatments and steroid regimen (9) Degenerative arthritis: Chronically on oxycodone IR as needed, taking 1-2 per day when pain is severe Continued home oxycodone IR with q8h frequency for moderate to severe pain, tylenol for mild pain (10) Nicotine dependence, cigarettes, with other nicotine-induced disorders: Pack per day smoker Nicotine patch ordered Plan Full code. Regular diet. Protonix for PUD prophylaxis Lovenox for DVT prophylaxis. Attestations Medical Necessity Statement*: Requires further hospitalization for management of hypoxia in setting of possible COPD exacerbation in a patient with baseline CLL Diagnoses Hypoxia R09.02 COPD (chronic obstructive pulmonary disease) J44.9 Chronic lymphocytic leukemia of B-cell type not having achieved remission C91.10 Hypertension I10 Hypothyroidism E03.9 Hyperlipidemia E78.5 GERD (gastroesophageal reflux disease) K21.9 Anxiety F41.9 Degenerative arthritis M19.90 Nicotine dependence, cigarettes, with other nicotine-induced disorders F17.218
[2022-07-07 15:21] LABS: Iron 40 ug/dL (37-145)
[2022-07-07 15:35] LABS: Vitamin B12 878 pg/mL (232-1245)
[2022-07-07 15:53] LABS: Percent Saturation 20.3 % (20-50); Total Iron Binding Capacity 197 mcg/dl; Unsaturated Iron Binding 157 ug/dL (112-347)
[2022-07-07] MEDS: enoxaparin 40 mg/0.4 mL Syringe SUBCUT (16:31)
[2022-07-07] MEDS: atorvastatin 40 mg Tablet 20 MG PO (18:10)
[2022-07-08] VITALS (7 sets, daily range): BP systolic 125–157; BP diastolic 58–96; PULSE 75–96; RESP 12–19; TEMP 36.5–36.8; O2SAT 86–95
[2022-07-08] MEDS: ALPRAZolam 0.5 mg Tablet PO ×2 (00:55→11:49)
[2022-07-08] MEDS: cyclobenzaprine 10 mg Tablet PO (00:55)
[2022-07-08] MEDS: ipratropium-albuterol 3 mL Neb INHALATION ×2 (03:13→08:59)
[2022-07-08 05:47] LABS: Basophils # 0.1 10^3/uL (0.0-0.1); Basophils % 0.1 %; Eosinophils # 0.1 10^3/uL (0.0-0.8); Eosinophils % 0.1 %; Hematocrit 43.9 % (37.0-47.0); Hemoglobin 13.8 g/dL (11.5-15.3); Lymphocytes # 54.2 10^3/uL (0.8-4.8); Lymphocytes % 71.4 %; Mean Corpuscular HGB Conc 31.4 g/dL (30.0-36.0); Mean Corpuscular Hemoglobin 28.9 pg (28.0-34.0); Mean Corpuscular Volume 91.8 fl (81-99); Mean Platelet Volume 9.5 fL (7.4-10.4); Monocytes # 1.6 10^3/uL (0.2-0.9); Monocytes % 2.1 %; Neutrophils # 19.02 10^3/uL (1.8-7.7); Nucleated Red Blood Cells % 0 %; Platelet Count 291 10^3/cmm (130-400); Red Blood Count 4.78 10^6/uL (4.1-5.3); Red Cell Distribution Width 13.7 % (12.1-15.1)
[2022-07-08] MEDS: levothyroxine 75 mcg Tablet PO (06:01)
[2022-07-08] MEDS: levoFLOXacin 750 mg Tablet PO (06:01)
[2022-07-08] MEDS: pantoprazole DR 40 mg Tablet PO (06:01)
[2022-07-08 06:05] LABS: Alanine Aminotransferase 65 U/L (0-33); Albumin Level 3.2 g/dL (3.5-5.2); Alkaline Phosphatase 82 U/L (35-105); Anion Gap 12.9 (5-19); Aspartate Amino Transferase 49 U/L (0-32); Blood Urea Nitrogen 16 mg/dL (8-23); Calcium 8.3 mg/dL (8.5-10.5); Carbon Dioxide 26 mmol/L (22-29); Chloride 104 mmol/L (98-107); Chol HDL Ratio 5.35 mg/dL (0.0-4.40); Cholesterol 123 mg/dL (0-200); Globulin 2.7 g/dL (1.3-4.6); Glucose 117 mg/dL (65-115); HDL Cholesterol 23 mg/dL (60-100); LDL Cholesterol Calculated 77 mg/dL (50-129); Osmolality Calculated 290 mOsm/kg (285-295); Potassium 3.9 mmol/L (3.5-5.1); Sodium 139 mmol/L (136-145); Total Bilirubin 0.4 mg/dL (0.15-1.2); Total Protein 5.9 g/dL (6.6-8.7); Triglycerides 113 mg/dL (0-150); VLDL Cholestrol Calculation 23 mg/dL (0-30)
[2022-07-08 06:08] LABS: Estmated Average Glucose 126; Slide Review Slide Review Perform
[2022-07-08 06:10] LABS: White Blood Count 75.9 10^3/uL (4.0-10.0)
[2022-07-08] MEDS: benzonatate 100 mg Capsule 200 MG PO ×2 (08:04→15:24)
[2022-07-08] MEDS: predniSONE 20 mg Tablet 40 MG PO (08:04)
[2022-07-08] MEDS: loratadine 10 mg Tablet PO (08:04)
[2022-07-08] MEDS: doxycycline 100 mg Tablet PO (08:08)
[2022-07-08] MEDS: guaiFENesin 100 mg/5 mL UDC 10 mL 400 MG PO (11:49)
--- NOTE | 2022-07-08 11:53 | P.DS_ITS ---
Discharge Providers Date of Admission: 07/07/22 21:30 Date of Discharge: July 08, 2022 Attending Provider at Admission: Ara Caldera MD Attending Provider at Discharge: Иван Hebert MD Primary Care Provider: REYNA Patel Diagnoses at Discharge Discharge Diagnosis (1) Hypoxia: Status: Acute (2) COPD (chronic obstructive pulmonary disease): Status: Acute (3) Chronic lymphocytic leukemia of B-cell type not having achieved remission: Status: Acute (4) Hypertension: Status: Chronic (5) Hypothyroidism: Status: Chronic (6) Hyperlipidemia: Status: Acute (7) GERD (gastroesophageal reflux disease): Status: Chronic (8) Anxiety: Status: Chronic (9) Degenerative arthritis: Status: Chronic (10) Nicotine dependence, cigarettes, with other nicotine-induced disorders: Status: Chronic Reason for Visit Reason for Visit: possible pneumonia Brief History: History as per HPI: Sue Delgado is a 77 year old female who presented to the emergency room with chief complaint of cough and difficulty breathing.? She has what sounds like a pretty classic smoker's morning cough at baseline, but about a week ago she started having increasing sinus drainage and runny nose that she attributed to allergies.? Her cough has been more persistent throughout the day and escalating in severity.? She has terrible paroxysms of coughing that are difficult to stop.? She has not noted any blood in her sputum.? Has been brownish-yellow and thick.? She has felt hot and had some sweats during the day the last couple of days but not noted any definite fevers.? She does have a history of CLL and follows with Dr. Yarbrough.? She is not on any current treatment.? Counts have been fairly stable for the last few years in the upper 40s.? She denies any recent changes in weight, night sweats or regular fevers.? She last saw Dr. Yarbrough in February.? No sore throat.? No nausea or vomiting.? No chest pain.? With her symptoms not improving and seeming to get worse her and her were concerned she might have pneumonia prompting the visit to the emergency room.? On arrival oxygen saturations were noted to be low at 86% on room air.? She has had episodes of bronchitis in the past but never formally been diagnosed with COPD.? She does smoke a pack of cigarettes a day though admits she has not been smoking as much the last few days.? She has never required hospitalization for breathing nor oxygen.? She was placed on 3 L by nasal cannula and with paroxysms of coughing will again have saturations drop into the mid to upper 80s with quick recovery.? Chest x-ray did not show any definite pneumonia.? Viral respiratory panel was negative.? Her white count was noted to be up to 61,000.? Given new oxygen need and symptoms she is being admitted for further treatment and monitoring.? She received breathing treatment, doxycycline and Solu-Medrol in the emergency room.? She is not on any chronic respiratory medications. Hospital Course Hospital Course Patient was admitted to hospital further evaluation and management of hypoxia in setting of COPD exacerbation. She was started on inhalation treatment and IV steroids to which she responded well. Sputum culture came back positive for Moraxella which will be the lactamase positive. Blood cultures remain negative. Patient hospitalization was otherwise unremarkable and she steadily improved. Home O2 evaluation has been done prior to discharge. She has been discharged in hemodynamically stable condition on oral Augmentin and Levaquin for next 5 days. She is to continue taking inhalation treatment as described in detail. She is advised to follow-up with a primary care provider within next 1 week. Physical Exam Narrative: General: No acute distress, AO x3 HEENT: PERRLA, pupils bilaterally equal and reactive Chest: Bilateral bronchial breath sounds all over lung dixon with occasional rhonchi and fine crackles CVS: S1-S2 regular, no murmurs, no tachycardia, no gallops, no rubs Abdomen: Soft, nontender, no organomegaly, bowel sounds present Neuro: No focal deficits, no facial deformity, AO x3, power 5/5 in all limbs Discharge Data Studies Completed and Pending Completed Studies During Hospitalization Category Date Time Status CTA chest [CT angio chest PE protcl [id number]] Routine Cat Scan 07/07/22 12:39 Completed XR chest 1V portable [id number] Urgent Exams 07/06/22 10:32 Completed Pending at discharge Category Date Time Status Sputum Culture and Gram Stain Stat Lab 07/06/22 11:33 Results Urine Culture Stat Lab 07/06/22 12:31 Received Radiology Impressions Chest X-Ray 07/06/22 10:32 Impression: Atherosclerosis. Chest CTA 07/07/22 12:39 IMPRESSION: 1. No pulmonary embolism. 2. Mild diffuse bronchial wall thickening but greatest in the lower lobes. Most likely due to bronchitis. 3. Additional tree-in-bud airspace disease bilaterally. Most typical for endobronchial pneumonia or aspiration pneumonia. 4. Indeterminate mediastinal and hilar lymph nodes are probably reactive. Microbiology 07/06/22 11:33 Sputum - Expectorated Sputum Gram Stain - Final 07/06/22 11:33 Sputum - Expectorated Sputum Sputum Culture - Final Moraxella catarrhalis Laboratory Results WBC 75.9 10^3/uL (4.0-10.0) H* 07/08/22 05:29 RBC 4.78 10^6/uL (4.1-5.3) 07/08/22 05:29 Hgb 13.8 g/dL (11.5-15.3) 07/08/22 05:29 Hct 43.9 % (37.0-47.0) 07/08/22 05:29 MCV 91.8 fl (81-99) 07/08/22 05:29 MCH 28.9 pg (28.0-34.0) 07/08/22 05:29 MCHC 31.4 g/dL (30.0-36.0) 07/08/22 05:29 RDW 13.7 % (12.1-15.1) 07/08/22 05:29 Plt Count 291 10^3/cmm (130-400) 07/08/22 05:29 MPV 9.5 fL (7.4-10.4) 07/08/22 05:29 Neut % (Auto) 25.0 % 07/08/22 05:29 Lymph % (Auto) 71.4 % 07/08/22 05:29 Ida % (Auto) 2.1 % 07/08/22 05:29 Eos % (Auto) 0.1 % 07/08/22 05:29 Baso % (Auto) 0.1 % 07/08/22 05:29 Neut # (Auto) 19.02 10^3/uL (1.8-7.7) H 07/08/22 05:29 Lymph # (Auto) 54.2 10^3/uL (0.8-4.8) H 07/08/22 05:29 Ida # (Auto) 1.6 10^3/uL (0.2-0.9) H 07/08/22 05:29 Eos # (Auto) 0.1 10^3/uL (0.0-0.8) 07/08/22 05:29 Baso # (Auto) 0.1 10^3/uL (0.0-0.1) 07/08/22 05:29 Nucleated RBC % (auto) 0 % 07/08/22 05:29 Nucleated RBCs # 0.0 /100WBC 07/08/22 05:29 D-Dimer 1.06 ug/mIFEU (0-0.59) H 07/07/22 11:45 Sodium 139 mmol/L (136-145) 07/08/22 05:29 Potassium 3.9 mmol/L (3.5-5.1) 07/08/22 05:29 Chloride 104 mmol/L (98-107) 07/08/22 05:29 Carbon Dioxide 26 mmol/L (22-29) 07/08/22 05:29 Anion Gap 12.9 (5-19) 07/08/22 05:29 BUN 16 mg/dL (8-23) 07/08/22 05:29 Creatinine 0.7 mg/dL (0.5-0.9) 07/08/22 05:29 GFR Calculation Not Reportable 07/08/22 05:29 Glucose 117 mg/dL (65-115) H 07/08/22 05:29 Estimat Average Glucose 126 07/08/22 05:29 Hemoglobin A1c 6.0 % (4.0-6.0) 07/08/22 05:29 Calculated Osmolality 290 mOsm/kg (285-295) 07/08/22 05:29 Lactic Acid 1.6 mmol/L (0.5-2.2) 07/06/22 10:58 Calcium 8.3 mg/dL (8.5-10.5) L 07/08/22 05:29 Iron 40 ug/dL (37-145) 07/07/22 04:36 TIBC 197 mcg/dl 07/07/22 04:36 % Saturation 20.3 % (20-50) 07/07/22 04:36 Unsat Iron Binding 157 ug/dL (112-347) 07/07/22 04:36 Total Bilirubin 0.4 mg/dL (0.15-1.2) 07/08/22 05:29 AST 49 U/L (0-32) H 07/08/22 05:29 ALT 65 U/L (0-33) H 07/08/22 05:29 Alkaline Phosphatase 82 U/L (35-105) 07/08/22 05:29 Lactate Dehydrogenase 256 U/L (135-214) H 07/07/22 04:36 C-Reactive Protein 186.5 mg/L (0.0-4.9) H 07/07/22 04:36 NT-Pro-B Natriuret Pep 221 pg/mL (0-450) 07/06/22 10:34 Total Protein 5.9 g/dL (6.6-8.7) L 07/08/22 05:29 Albumin 3.2 g/dL (3.5-5.2) L 07/08/22 05:29 Globulin 2.7 g/dL (1.3-4.6) 07/08/22 05:29 Triglycerides 113 mg/dL (0-150) 07/08/22 05:29 Cholesterol 123 mg/dL (0-200) 07/08/22 05:29 LDL Cholesterol, Calc 77 mg/dL (50-129) 07/08/22 05:29 Total VLDL Cholesterol 23 mg/dL (0-30) 07/08/22 05:29 HDL Cholesterol 23 mg/dL (60-100) L 07/08/22 05:29 Cholesterol/HDL Ratio 5.35 mg/dL (0.0-4.40) H 07/08/22 05:29 Vitamin B12 878 pg/mL (232-1245) 07/07/22 04:36 Folate 18.0 ng/mL (4.8-37.3) 07/07/22 04:36 Procalcitonin 0.12 ng/mL (0-0.5) 07/06/22 10:58 Urine Color Yellow (Yellow) 07/06/22 12:31 Urine Appearance Sl hazy (CLEAR) A 07/06/22 12:31 Urine pH 6 (5-7) 07/06/22 12:31 Ur Specific [place] 1.020 (1.005-1.030) 07/06/22 12:31 Urine Protein 2+ (Negative) H 07/06/22 12:31 Urine Glucose (UA) Norm (Normal) 07/06/22 12:31 Urine Ketones 1+ (Negative) H 07/06/22 12:31 Urine Blood 3+ (Negative) H 07/06/22 12:31 Urine Nitrate Negative (Negative) 07/06/22 12:31 Urine Bilirubin 1+ (Negative) H 07/06/22 12:31 Urine Urobilinogen 8 mg/dL (Negative) H 07/06/22 12:31 Ur Leukocyte Esterase 1+ (Negative) H 07/06/22 12:31 Urine RBC 0-4 /hpf (0-2) H 07/06/22 12:31 Urine WBC 10-15 /hpf (0-5) H 07/06/22 12:31 Ur Squamous Epith Cells 0-4 /hpf (0-5) H 07/06/22 12:31 Ur Transition Epith Cell 0-4 /hpf 07/06/22 12:31 Amorphous Sediment Not Reportable 07/06/22 12:31 Urine Bacteria 2+ /hpf (NONE) H 07/06/22 12:31 Hyaline Casts 10-15 /lpf H 07/06/22 12:31 Urine Mucus Trace /hpf 07/06/22 12:31 Nasal Influ A H1 2008 PCR Not detected (NOT DETECT) 07/06/22 11:09 Adenovirus (PCR) Not detected (NOT DETECT) 07/06/22 11:09 C. pneumoniae DNA (PCR) Not detected (NOT DETECT) 07/06/22 11:09 Coronavirus 229E (PCR) Not detected (NOT DETECT) 07/06/22 11:09 Human Metapneumovir PCR Not detected (NOT DETECT) 07/06/22 11:09 Influenza A (H1) PCR Not detected (NOT DETECT) 07/06/22 11:09 Influenza A (H3) PCR Not detected (NOT DETECT) 07/06/22 11:09 Influenza Type A (PCR) Not detected (NOT DETECT) 07/06/22 11:09 Influenza Type B (PCR) Not detected (NOT DETECT) 07/06/22 11:09 M. pneumoniae (PCR) Not detected (NOT DETECT) 07/06/22 11:09 Parainfluenza 1 (PCR) Not detected (NOT DETECT) 07/06/22 11:09 Parainfluenza 2 (PCR) Not detected (NOT DETECT) 07/06/22 11:09 Parainfluenza 3 (PCR) Not detected (NOT DETECT) 07/06/22 11:09 Parainfluenza 4 (PCR) Not detected (NOT DETECT) 07/06/22 11:09 RSV Type A (PCR) Not detected (NOT DETECT) 07/06/22 11:09 RSV Type B (PCR) Not detected (NOT DETECT) 07/06/22 11:09 Entero/Rhino (PCR) Not detected (NOT DETECT) 07/06/22 11:09 SARS-CoV-2 (PCR) Not detected (NOT DETECT) 07/06/22 11:09 Vitals Last Vital Signs Temp 98 F 07/08/22 08:07 Pulse 86 07/08/22 09:03 Resp 16 07/08/22 09:00 BP 134/96 07/08/22 08:07 Pulse Ox 92 07/08/22 09:00 O2 Del Method Nasal Cannula 07/08/22 09:00 O2 Flow Rate 2 07/08/22 09:00 Discharge Plan Discharge Patient Disposition: Home Condition: Stable Prescriptions: New benzonatate 100 mg Capsule 100 mg PO TID Qty: 30 0RF prednisone 20 mg Tablet 40 mg PO DAILY Qty: 14 0RF levofloxacin 750 mg Tablet 750 mg PO DAILY@0600 Qty: 5 0RF Spiriva with HandiHaler 18 mcg capsule, w/inhalation device 1 cap inhalation DAILY Qty: 14 0RF Rx Instructions: puncture 1 cap using device; one dose = 2 inhalations Breo Ellipta 100-25 mcg/dose blister with device 1 inh inhalation DAILY 14 Days Qty: 14 0RF Augmentin 500-125 mg tablet 1 tab PO Q8H 5 Days Qty: 15 0RF Continued alprazolam 0.5 mg tablet 0.5 mg PO BID PRN (Reason: Anxiety) Saccharomyces boulardii [Daily Probiotic (S. boulardii)] 250 mg capsule 5,000 mmu cells PO DAILY krill oil 500 mg capsule 500 mg PO BEDTIME oxycodone 5 mg tablet 5 - 10 mg PO DAILY PRN (Reason: pain) 30 Days Qty: 45 0RF multivitamin Tablet 1 tab PO DAILY spironolactone 25 mg tablet 25 mg PO DAILY@07 omeprazole 20 mg capsule,delayed release(DR/EC) 20 mg PO QAM lovastatin 20 mg tablet 40 mg PO DAILY@18 Synthroid 75 mcg tablet 75 mcg PO DAILY@07 cyclobenzaprine 10 mg tablet 10 mg PO BID PRN (Reason: Muscle Spasm) Discharge Orders: Discharge Order (Routine); Ordered 07/08/22 Ordered By: Иван Hebert Other Ambulatory Orders: DME: Oxygen (Order) Location: None Selected Ordered By: Иван Hebert Referrals: Mindy Knight FNP [Primary Care Provider] - 07/15/22 10:30 am Discharge Diet: Cardiac Discharge Activity: Resume usual activity and Increase activity as tolerated Patient Instructions: Benzonatate (By mouth), Prednisone (By mouth), Levofloxacin (By mouth), Tiotropium (By breathing), Fluticasone/Vilanterol (By breathing), COPD (Chronic Obstructive Pulmonary Disease) (GEN), Opioid Safety Activity Restrictions/Additional Instructions: Take Augmentin and Levaquin which are the antibiotics for next 5 days. Take prednisone which is a steroid 40 mg daily for next 7 days. You will be on 2 inhalers which you should continue taking for next 2 weeks. Please follow-up with a primary care provider within next 1 week. Discharge Attestations Time Spent in Discharge Care*: greater than 30 min Specific Discharge Activities: educating patient, discussing with pcp/other providers, discussing with geriatric case manager/social workers/dc planners, documenting/other paperwork and evaluating patient/reviewing data Status at Discharge: Cognitive status at discharge: cognitively intact , Behavioral status at discharge: cooperative , Functional status at discharge: independent ambulation , Overall status at discharge: patient is back to baseline Quality Metrics Clinical Quality Measures [ No reported AMI, CVA or VTE this stay] Coding Level of Care Code 48354 Total time (in minutes) for Discharge: 50 Diagnoses Hypoxia R09.02 COPD (chronic obstructive pulmonary disease) J44.9 Chronic lymphocytic leukemia of B-cell type not having achieved remission C91.10 Hypertension I10 Hypothyroidism E03.9 Hyperlipidemia E78.5 GERD (gastroesophageal reflux disease) K21.9 Anxiety F41.9 Degenerative arthritis M19.90 Nicotine dependence, cigarettes, with other nicotine-induced disorders F17.218
--- NOTE | 2022-07-08 15:48 | PC.NURSE ---
discussed discharge with patient and spouse. Discussed new medications, continued medications and follow up appointments with patient. All questions answered for patient. Verbalized understanding.
== END 2022-07-08 15:35 | disposition home or self-care (01) | DRG 191 ==
LOC: ER 12:29 → MEDSURG 13:53
PROVIDERS: Admitting Provider Hospitalist; Emergency Provider Physician Assistant; PCP Nurse Practitioner Family; Visit Provider Student in an Organized Health Care Education/Training Program
DX: J44.1 Chronic obstructive pulmonary disease with (acute) exacerbation (principal); C91.10 Chronic lymphocytic leukemia of B-cell type not having achieved remission; D84.89 Other immunodeficiencies; F17.210 Nicotine dependence, cigarettes, uncomplicated; B96.89 Other specified bacterial agents as the cause of diseases classified elsewhere; Z79.891 Long term (current) use of opiate analgesic; F41.9 Anxiety disorder, unspecified; K21.9 Gastro-esophageal reflux disease without esophagitis; E78.5 Hyperlipidemia, unspecified; I10 Essential (primary) hypertension; E89.0 Postprocedural hypothyroidism; M19.90 Unspecified osteoarthritis, unspecified site; D75.1 Secondary polycythemia; J30.2 Other seasonal allergic rhinitis
CPT/HCPCS: 36415; 71045; 71275; 80053; 80061; 81001; 82607; 82746; 83036; 83540; 83550; 83605; 83615; 83880; 84145; 85025; 85378; 86140; 87040; 87070; 87077; 87086; 87205; 87486; 87581; 87633; 94640; 94760; 96365; 96372; 96375; 99285; G0378; J1650; J2930; J3480; J3490; J7512; J7613; J7626; Q9967

== ENCOUNTER 2022-07-26 11:36 | Emergency (ER) | payer MEDICARE, BC, SELFPAY ==
[2022-07-26 11:45] VITALS: BP 136/80; PULSE 91; RESP 18; TEMP 36.4; O2SAT 89; BMI 29.4
--- NOTE | 2022-07-26 12:22 | XRR_ITS ---
PROCEDURE INFORMATION: Exam: XR Chest Exam date and time: 07/26/2022 12:31 PM Age: 77 years old Clinical indication: Shortness of breath; Patient HX: HX of cll; Additional info: Copd TECHNIQUE: Imaging protocol: Radiologic exam of the chest. Views: 1 view. COMPARISON: CR XR chest 1V portable [id number] 07/06/2022 10:38 AM FINDINGS: Lungs: Unremarkable. No consolidation. Pleural spaces: Unremarkable. No pleural effusion. No pneumothorax. Heart/Mediastinum: Unremarkable. No cardiomegaly. Bones/joints: Unremarkable. XR/XR chest 1V portable [id number] IMPRESSION: No acute findings.
--- NOTE | 2022-07-26 12:23 | ED_ITS ---
HPI - General Adult General: Chief complaint: Arrhythmia/Palpitations Stated complaint: unsteady high HR Time Seen by Provider: 07/26/22 12:04 Source: patient Mode of arrival: ambulatory Limitations: no limitations History of Present Illness: Patient is a 77-year-old female presents to ED today along with her son for concerns of heart rates running in the 80s to 90s. Patient states she was admitted to the hospital last month (I personally saw patient on this visit and admitted her). She states she was treated for pneumonia and COPD exacerbation. She states she was discharged home on antibiotics as well as home O2. Patient admittedly does not wear her oxygen like she is supposed to. She arrives to the ED not wearing it. She is satting 89% without her oxygen. Patient states she does not have any physical complaints at this time and is only here because her son was worried about her heart rates. Onset (ago): day(s) Associated symptoms: Reports no associated symptoms and dyspnea (chronic-reports at baseline); Deny chest pain, headache(s), malaise, rash, palpitations or syncope Treatments prior to arrival: none Review of Systems Const: Denies: fever(s), chills, body aches, fatigue or malaise Card: Reports: dyspnea on exertion (chronic); Denies: chest pain, palpitations, irregular heart rhythm, edema, swelling of feet/ankles, lightheadedness, syncope or pre-syncope Resp: Reports: dyspnea (chronic-reports at baseline); Denies: wheezing, stridor, pain on inspiration or hemoptysis GI: Denies: abdominal pain Musc: Denies: neck pain, back pain, extremity pain or joint pain Skin/Breast: Denies: rash Neuro: Denies: headache(s), numbness in extremities, weakness in extremities, sensory changes or dizziness PFS ED PFSH: Medical History Anxiety 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) Degenerative arthritis Diverticulosis hospitalized with diverticulitis in 2003 GERD (gastroesophageal reflux disease) Glaucoma 3 History of Isamar thyroiditis Hyperlipidemia Hypertension Hypothyroidism Surgical History History of carpal tunnel release right History of cataract surgery 2017 History of colonoscopy 03/2019 Dr Phan History of esophagogastroduodenoscopy (EGD) 03/2019 Dr Phan History of removal of cyst Removal of cysts from the back and left hand (ganglion cyst) History of subtotal thyroidectomy (~1984) History of tubal ligation Family History Denies family history of Clotting disorder Lung disease Cancer Social History Smoking and tobacco status: current every day smoker Alcohol intake: never Substance/Drug Use: never Household members: spouse Marital status: Physical Exam Const: COMMON NORMALS: no acute distress, average body habitus, patient oriented x3, no limitations, healthy appearing, alert and well nourished GENERAL APPEARANCE: cooperative ORIENTATION/CONSCIOUSNESS: Yes awake, Yes oriented to person, Yes oriented to place and Yes oriented to time HENMT: COMMON NORMALS: normocephalic and atraumatic HEAD & SCALP: normal to inspection, normocephalic and atraumatic Neck/C-Spine: COMMON NORMALS: full ROM, no lymphadenopathy, supple and no meningeal signs Chest: COMMONS NORMALS: normal inspection of the chest and normal palpation of entire chest wall Resp: COMMON NORMALS: normal respiratory effort, No use of accessory muscles and clear to auscultation bilaterally EFFORT & INSPECTION: No tachypneic, No respiratory distress, No pursed lip breathing, No labored, No grunting, No stridor and No retractions AUSCULTATION: clear to auscultation bilaterally OTHER: pt was placed on 2L O2 and quickly came up to 97% Cardio: COMMON NORMALS: regular rate and regular rhythm RATE: regular rate RHYTHM: regular rhythm Extremity: COMMON NORMALS: normal to inspection, capillary refill normal, no joint enlargement, no clubbing, cyanosis or edema, no calf tenderness and no pedal edema GENERAL: Yes normal exam except as noted Neuro: LAYNE COMA SCALE: document GCS findings Layne coma scale eye opening: Spontaneous Campbell coma scale verbal response: Orientated Layne coma scale motor response: Obey commands Layne coma scale total score: 15 COMMON NORMALS: patient oriented x3, moves all extremities, no focal motor deficits and no sensory deficits noted SENSORIUM/ORIENTATION: Yes alert, Yes oriented to person, Yes oriented to place and Yes oriented to time MENINGEAL SIGNS: Yes no meningeal signs Skin: COMMON NORMALS: no rashes or lesions noted GENERAL SKIN EXAM: no rashes or lesions noted Course Vital Signs: Vital signs: Vital Signs Temperature 97.6 F 07/26/22 11:45 Pulse Rate 91 07/26/22 11:45 Respiratory Rate 18 07/26/22 11:45 Blood Pressure 136/80 07/26/22 11:45 Pulse Oximetry 89 L 07/26/22 11:45 Oxygen Delivery Me thod Room Air 07/26/22 11:45 MDM - General Adult Medical Decision Making Counseled patient and family on normal HRs and that I am not concerned with her HR in the 80s-90s at all. She needs to be wearing her oxygen as directed. CXR today is non-concerning. Remainder of vitals normal. Clinically she has zero com plaints. Recommend she continue to follow up with primary care. Return to ED precautions given. Discharge Plan Discharge Patient Disposition: Home Clinical Impression: COPD (chronic obstructive pulmonary disease) Qualifiers: COPD type: unspecified COPD Qualified Code(s): J44.9 - Chronic obstructive pulmonary disease, unspecified Condition: Stable Prescriptions: No Action alprazolam 0.5 mg tablet 0.5 mg PO BID PRN (Reason: Anxiety) Saccharomyces boulardii [Daily Probiotic (S. boulardii)] 250 mg capsule 5,000 mmu cells PO DAILY krill oil 500 mg capsule 500 mg PO BEDTIME oxycodone 5 mg tablet 5 - 10 mg PO DAILY PRN (Reason: pain) 30 Days Qty: 45 0RF multivitamin Tablet 1 tab PO DAILY spironolactone 25 mg tablet 25 mg PO DAILY@07 omeprazole 20 mg capsule,delayed release(DR/EC) 20 mg PO QAM lovastatin 20 mg tablet 40 mg PO DAILY@18 Synthroid 75 mcg tablet 75 mcg PO DAILY@07 cyclobenzaprine 10 mg tablet 10 mg PO BID PRN (Reason: Muscle Spasm) benzonatate 100 mg Capsule 100 mg PO TID Qty: 30 0RF prednisone 20 mg Tablet 40 mg PO DAILY Qty: 14 0RF levofloxacin 750 mg Tablet 750 mg PO DAILY@0600 Qty: 5 0RF Spiriva with HandiHaler 18 mcg capsule, w/inhalation device 1 cap inhalation DAILY Qty: 14 0RF Rx Instructions: puncture 1 cap using device; one dose = 2 inhalations Discharge Orders: Discharge ED (Routine); Ordered 07/26/22 Ordered By: Valeri Livingston Referrals: Mindy Knight FNP [Primary Care Provider] - Patient Instructions: COPD (Chronic Obstructive Pulmonary Disease) (DC) Coding Level of Care Code ED [facility] Cementer for Estela Lino
[2022-07-26 13:15] VITALS: BP 113/79; PULSE 87; RESP 20; O2SAT 90
== END 2022-07-26 13:18 | disposition home or self-care (01) ==
PROVIDERS: Emergency Provider Physician Assistant; PCP Nurse Practitioner Family
DX: J44.9 Chronic obstructive pulmonary disease, unspecified (principal); F17.210 Nicotine dependence, cigarettes, uncomplicated; Z85.6 Personal history of leukemia; E78.5 Hyperlipidemia, unspecified; I10 Essential (primary) hypertension
CPT/HCPCS: 71045; 99283; 99285

== ENCOUNTER 2022-09-03 11:03 | Oncology outpatient (recurring) (ONCR) | payer MEDICARE, BC, SELFPAY ==
[2022-09-03 11:15] VITALS: BP 130/79; PULSE 70; RESP 18; TEMP 36.5; O2SAT 93
[2022-09-03 11:26] LABS: Hematocrit 45.7 % (37.0-47.0); Hemoglobin 14.5 g/dL (11.5-15.3); Mean Corpuscular HGB Conc 31.7 g/dL (30.0-36.0); Mean Corpuscular Hemoglobin 28.9 pg (28.0-34.0); Mean Corpuscular Volume 91.2 fl (81-99); Mean Platelet Volume 9.2 fL (7.4-10.4); Platelet Count 194 10^3/cmm (130-400); Red Blood Count 5.01 10^6/uL (4.1-5.3)
[2022-09-03 11:47] LABS: Alanine Aminotransferase 23 U/L (0-33); Alkaline Phosphatase 87 U/L (35-105); Anion Gap 12.9 (5-19); Aspartate Amino Transferase 19 U/L (0-32); Blood Urea Nitrogen 13 mg/dL (8-23); Calcium 9.1 mg/dL (8.5-10.5); Carbon Dioxide 28 mmol/L (22-29); Chloride 99 mmol/L (98-107); Globulin 2.2 g/dL (1.3-4.6); Glucose 125 mg/dL (65-115); Lactate Dehydrogenase 193 U/L (135-214); Osmolality Calculated 282 mOsm/kg (285-295); Potassium 4.9 mmol/L (3.5-5.1); Sodium 135 mmol/L (136-145); Total Bilirubin 0.4 mg/dL (0.15-1.2); Total Protein 6.2 g/dL (6.6-8.7)
[2022-09-03 12:20] LABS: Slide Review Slide Review Perform
[2022-09-03 12:21] LABS: White Blood Count 52.4 10^3/uL (4.0-10.0)
[2022-09-03 12:22] LABS: Absolute Eosinophils 0.5 10^3/cmm (0.0-0.7); Absolute Neutrophil 14.7 10^3/cmm (1.4-6.5); Absolute Segmented Neutrophil 14.7 10/cmm (1.6-7.1); Eosinophils 1 %; Lymphocytes 19 %; Lymphocytes Absolute 36.7 10^3/cmm (1.2-3.4); Monocytes Absolute 0.5 10^3/cmm (0.1-0.6); Platelet Estimate Decreased (Normal); Segmented Neutrophils 28 %; Total Cells Counted 100 (0-100)
[2022-09-04 08:51] LABS: Erythrocyte Sedimentation Rate 9 mm/hr (0-15)
[2022-09-04 09:26] LABS: C Reactive Protein 6.9 mg/L (0.0-4.9)
== END 2022-09-18 23:59 | disposition home or self-care (01) ==
PROVIDERS: Nurse Practitioner Family; PCP Nurse Practitioner Family; Visit Provider Internal Medicine Medical Oncology
DX: C91.10 Chronic lymphocytic leukemia of B-cell type not having achieved remission; R53.83 Other fatigue; F17.200 Nicotine dependence, unspecified, uncomplicated; M19.90 Unspecified osteoarthritis, unspecified site
CPT/HCPCS: 36415; 80053; 83615; 85007; 85025; 85651; 86140; 99214

== ENCOUNTER 2022-10-31 10:30 | Emergency (ER) | payer MEDICARE, BC, SELFPAY ==
[2022-10-31] VITALS (8 sets, daily range): BP systolic 117–130; BP diastolic 67–91; PULSE 95–118; RESP 16–24; TEMP 36.4; O2SAT 91–97; BMI 29.1
--- NOTE | 2022-10-31 10:42 | XRR_ITS ---
PROCEDURE INFORMATION: Exam: XR Chest Exam date and time: 10/31/2022 11:31 AM Age: 77 years old Clinical indication: Shortness of breath; Additional info: Copd.No history of trauma or recent surgery is provided. TECHNIQUE: Imaging protocol: Radiologic exam of the chest. 1image(s) are provided. Views: 1 view. COMPARISON: 1. CR XR chest 1V portable [id number] 07/26/2022 12:[address] angio chest PE protcl [id number] 07/07/2022 1:46 PM 3. CR XR chest 1V portable [id number] 07/06/2022 10:38 AM FINDINGS: Lungs: There is some subsegmental atelectasis versus post inflammatory scarring demonstrated.No lobar consolidation is appreciated. Pleural spaces: No pneumothorax or significant pleural effusion is appreciated. Heart/Mediastinum: The cardiomediastinal silhouette is upper normal in size.This can be seen with central averaging as well as zachary enlargement.No cardiac decompensation is appreciated. Diaphragm: The hemidiaphragms are symmetric. Bones/joints: Osseous alignment is maintained.No interval displaced fracture or dislocation is appreciated.There is slightly decreased bone mineralization overall. Soft tissues: No radiopaque foreign body or subcutaneous emphysema is appreciated. Other findings: There is some overlying external artifact. There is some mild chronic air trapping appearance similar overall. No significant interval changes are appreciated. XR/XR chest 1V portable [id number] IMPRESSION: No lobar consolidation is appreciated.No interval acute cardiopulmonary changes are appreciated.
--- NOTE | 2022-10-31 10:44 | ED_ITS ---
HPI - SOB/Dyspnea General: Chief Complaint: General Medical Stated Complaint: Low O2 Time Seen by Provider: 10/31/22 10:33 Source: patient and family Mode of arrival: ambulatory Limitations: no limitations History of Present Illness: HPI Narrative: This patient was transported to the emergency department with family members. They have noted that her heart rates been up a bit in the 1 10-1 20 range and her oxygen saturation has been in the 70s to 80s range on room air. She apparently does have home oxygen but she is decided to wear it at night. She does have a history of COPD and still smokes tobacco. She was recently admitted to this hospital in the spring for pneumonia. She states she has had sweats but denies any fevers. She states she has been using her prescribed Spiriva as well as her other inhaler. She denies any known exposure to infectious disease. She states she has no chest pain. MD elicited complaint: shortness of breath Pertinent past history: COPD Associated symptoms: Deny abdominal pain, chest pain, extremity pain, fever(s), nausea, palpitations, syncope or vomiting Review of Systems Const: Reports: chills; Denies: fever(s) Eyes: Denies: change in vision ENMT: Denies: throat pain or odynophagia Card: Denies: chest pain, palpitations, irregular heart rhythm, syncope or pre-syncope Resp: Reports: dyspnea, non-productive cough and wheezing GI: Denies: abdominal pain, nausea, vomiting or diarrhea : Denies: flank pain, difficulty voiding, dysuria or urinary frequency Musc: Denies: neck pain, back pain, extremity pain or extremity swelling Skin/Breast: Denies: rash or pruritus Neuro: Denies: headache(s), numbness in extremities or weakness in extremities PFS ED PFSH: Medical History Anxiety 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) Degenerative arthritis Diverticulosis hospitalized with diverticulitis in 2003 GERD (gastroesophageal reflux disease) Glaucoma 3 History of Isamar thyroiditis Hyperlipidemia Hypertension Hypothyroidism Surgical History History of carpal tunnel release right History of cataract surgery 2017 History of colonoscopy 03/2019 Dr Phan History of esophagogastroduodenoscopy (EGD) 03/2019 Dr Phan History of removal of cyst Removal of cysts from the back and left hand (ganglion cyst) History of subtotal thyroidectomy (~1984) History of tubal ligation Family History Denies family history of Clotting disorder Lung disease Cancer Social History Smoking and tobacco status: former smoker Alcohol intake: never Substance/Drug Use: never Household members: spouse Marital status: Physical Exam Narrative: EXAM NARRATIVE: She is alert no acute distress she is able to converse in complete sentences without dyspnea. Const: COMMON NORMALS: no acute distress, average body habitus and patient oriented x3 GENERAL APPEARANCE: cooperative and comfortable OR IENTATION/CONSCIOUSNESS: Yes awake HENMT: COMMON NORMALS: normocephalic, Normal nasal mucous membranes and turbinates present, moist oral mucous membranes and oropharynx normal HEAD & SCALP: normocephalic NOSE: Normal nasal mucous membranes and turbinates present Eye: COMMON NORMALS: Equal, round and reactive pupils present, EOMs intact bilaterally and conjunctivae normal CONJUNCTIVA: Yes conjunctivae normal PUPIL: Yes Equal, round and reactive pupils present Neck/C-Spine: COMMON NORMALS: full ROM, no lymphadenopathy, no JVD, Thyroid normal and No carotid bruits THYROID: Thyroid normal Chest: COMMONS NORMALS: normal inspection of the chest and normal palpation of entire chest wall Resp: COMMON NORMALS: No retractions and No use of accessory muscles EFFORT & INSPECTION: Yes able to speak in complete sentences AUSCULTATION: wheezes expiratory wheezes Cardio: COMMON NORMALS: no JVD, regular rate, regular rhythm and Peripheral pulses 2+ throughout RATE: regular rate RHYTHM: regular rhythm PERIPH ERAL PULSES: Peripheral pulses 2+ throughout GI: COMMON NORMALS: Normal to inspection, nondistended, normoactive bowel sounds present, Soft to palpation and non-tender PALPATION: Yes Soft to palpation : COMMON NORMALS: Yes no CVA tenderness BLADDER/KIDNEY EXAM: Yes no CVA tenderness Back/Pelvis: COMMON NORMALS: no CVA tenderness, thoracic and lumbar spine normal to inspection, no thoracic nor lumbar tenderness and thoraco-lumbar ROM normal Extremity: COMMON NORMALS: normal to inspection, full ROM, capillary refill normal, no calf tenderness and no pedal edema Neuro: COMMON NORMALS: patient oriented x3, moves all extremities, no focal motor deficits, no sensory deficits noted and gait normal CRANIAL NERVES: Yes CN normal except as noted Psych: COMMON NORMALS: mental status grossly normal Skin: COMMON NORMALS: no rashes or lesions noted, no wounds and turgor normal GENERAL SKIN EXAM: no rashes or lesions noted and turgor normal Course Reevaluation(s): Reevaluation #1: Patient was reevaluated. She has good air movement without any wheezing or adventitious sounds at this time. Her laboratories reviewed. She does have a leukocytosis but this is actually improved from her previous white blood count elevations due to her CLL. She does not have any evidence of pneumonia on chest x-ray and does have a slight elevation in her BNP but no evidence at this time of decompensated heart failure etc. She is clinically improved we had a detailed discussion regarding steroid use, tobacco use, plan for treatment and return precautions. Both she and family members voiced understanding over agreeable to plan. Time: 13:54 Vital Signs: Vital signs: Vital Signs Temperature 97.6 F 10/31/22 10:39 Pulse Rate 96 10/31/22 14:32 Respiratory Rate 20 H 10/31/22 14:19 Blood Pressure 124/67 10/31/22 13:31 Pulse Oximetry 96 10/31/22 14:19 Oxygen Delivery Me thod Nasal Cannula 10/31/22 14:19 Oxygen Flow Rate 3 10/31/22 14:19 MDM - SOB/Dyspnea Medical Decision Making Patient with a history of tobacco tobacco dependence and oxygen requiring COPD who has been having some decreased pox ox readings at home. She apparently has only been using her oxygen at night and still continues to smoke cigarettes. She was evaluated in the emergency department and on clinical evaluation was found to have expiratory wheezes but otherwise no focal or concerning findings with stable and alert mentation. Clinical examination revealed findings consistent with expiratory wheezing and bronchospasm. Work-up ensued today and included monitoring EKG chest x-ray and beta agonist therapy. She had good response to beta agonist with markedly improved air movement without any wheezing. Chest x-ray was reassuring and that there was no evidence of pneumonia. 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 After some reassurance the patient finally agreed to steroids. There have been some reluctance because of something she had been told by an adoption services manager prior to her cataract removal many years ago. She also has a chronic leukocytosis due to her CLL. Patient remained clinically stable and improved. Is desirous of being discharged on outpatient treatments we will give her a course of steroids for the next 7 days have her use her rescue inhaler frequently absolutely do not smoke cigarettes and also increase her oxygen use 2 to 24 hours daily rather than just at nighttime. We also discussed return precautions with both she and family in detail. They voiced understanding. Stable at this time with return precautions. Medical Records I reviewed the patient's medical records. The patient has a history of CLL and has had leukocytosis noted in the past. Lab Data I reviewed the patient's lab results. 10/31/22 11:19 10/31/22 11:19 Labs/Radiology: Radiology Impressions Chest X-Ray 10/31/22 10:42 IMPRESSION: No lobar consolidation is appreciated.No interval acute cardiopulmonary changes are appreciated. Laboratory Results WBC 24.4 10^3/uL (4.0-10.0) H 10/31/22 11:19 RBC 5.46 10^6/uL (4.1-5.3) H 10/31/22 11:19 Hgb 16.2 g/dL (11.5-15.3) H 10/31/22 11:19 Hct 48.4 % (37.0-47.0) H 10/31/22 11:19 MCV 88.6 fl (81-99) 10/31/22 11:19 MCH 29.7 pg (28.0-34.0) 10/31/22 11:19 MCHC 33.5 g/dL (30.0-36.0) 10/31/22 11:19 RDW 15.1 % (12.1-15.1) 10/31/22 11:19 Plt Count 145 10^3/cmm (130-400) 10/31/22 11:19 MPV 9.7 fL (7.4-10.4) 10/31/22 11:19 Neut % (Auto) 26.9 % 10/31/22 11:19 Lymph % (Auto) 66.9 % 10/31/22 11:19 [place] % (Auto) 4.9 % 10/31/22 11:19 Eos % (Auto) 0.0 % 10/31/22 11:19 Baso % (Auto) 0.3 % 10/31/22 11:19 Neut # (Auto) 6.56 10^3/uL (1.8-7.7) 10/31/22 11:19 Lymph # (Auto) 16.3 10^3/uL (0.8-4.8) H 10/31/22 11:19 [place] # (Auto) 1.2 10^3/uL (0.2-0.9) H 10/31/22 11:19 Eos # (Auto) 0.0 10^3/uL (0.0-0.8) 10/31/22 11:19 Baso # (Auto) 0.1 10^3/uL (0.0-0.1) 10/31/22 11:19 Nucleated RBC % (auto) 0 % 10/31/22 11:19 Nucleated RBCs # 0.0 /100WBC 10/31/22 11:19 Sodium 129 mmol/L (136-145) L 10/31/22 11:19 Potassium 4.4 mmol/L (3.5-5.1) 10/31/22 11:19 Chloride 87 mmol/L (98-107) L 10/31/22 11:19 Carbon Dioxide 27 mmol/L (22-29) 10/31/22 11:19 Anion Gap 19.4 (5-19) H 10/31/22 11:19 BUN 17 mg/dL (8-23) 10/31/22 11:19 Creatinine 1.0 mg/dL (0.5-0.9) H 10/31/22 11:19 GFR Calculation Not Reportable 10/31/22 11:19 Glucose 119 mg/dL (65-115) H 10/31/22 11:19 Calculated Osmolality 271 mOsm/kg (285-295) L 10/31/22 11:19 Calcium 8.6 mg/dL (8.5-10.5) 10/31/22 11:19 Total Bilirubin 2.7 mg/dL (0.15-1.2) H 10/31/22 11:19 AST 28 U/L (0-32) 10/31/22 11:19 ALT 21 U/L (0-33) 10/31/22 11:19 Alkaline Phosphatase 88 U/L (35-105) 10/31/22 11:19 NT-Pro-B Natriuret Pep 457 pg/mL (0-450) H 10/31/22 11:19 Total Protein 6.8 g/dL (6.6-8.7) 10/31/22 11:19 Albumin 3.9 g/dL (3.5-5.2) 10/31/22 11:19 Globulin 2.9 g/dL (1.3-4.6) 10/31/22 11:19 EKG Data EKG 1: I personally reviewed and interpreted this EKG as follows: Computer Generated Interpretation: Resting EKG reveals a ventricular rate of 96 bpm consistent with sinus rhythm. She has normal intervals, normal axis, no evidence of acute ST-T wave changes or other ischemic changes at this time. Discharge Plan Discharge Patient Disposition: Home Clinical Impression: COPD (chronic obstructive pulmonary disease), Nicotine dependence, cigarettes, with other nicotine-induced disorders, Chronic lymphocytic leukemia of B-cell type not having achieved remission Condition: Stable Prescriptions: New dexamethasone 4 mg tablet 4 mg PO BID Qty: 14 0RF No Action alprazolam 0.5 mg tablet 0.5 mg PO BID PRN (Reason: Anxiety) Saccharomyces boulardii [Daily Probiotic (S. boulardii)] 250 mg capsule 5,000 mmu cells PO DAILY krill oil 500 mg capsule 500 mg PO BEDTIME oxycodone 5 mg tablet 5 mg PO BID PRN (Reason: pain) 30 Days Qty: 60 0RF multivitamin Tablet 1 tab PO DAILY spironolactone 25 mg tablet 25 mg PO DAILY@07 omeprazole 20 mg capsule,delayed release(DR/EC) 20 mg PO QAM lovastatin 20 mg tablet 40 mg PO DAILY@18 Synthroid 75 mcg tablet 75 mcg PO DAILY@07 cyclobenzaprine 10 mg tablet 10 mg PO BID PRN (Reason: Muscle Spasm) Spiriva with HandiHaler 18 mcg capsule, w/inhalation device 1 cap inhalation DAILY Qty: 14 0RF Rx Instructions: puncture 1 cap using device; one dose = 2 inhalations Breo Ellipta 200-25 mcg/dose Blister With Device 1 inh INHALATION DAILY Discharge Orders: Discharge ED (Routine); Ordered 10/31/22 Ordered By: Placido Oliver Referrals: Mindy Knight FNP [Primary Care Provider] - Discharge Diet: Usual diet Discharge Activity: Increase activity as tolerated and Oxygen as instructed Patient Instructions: Opioid Safety, Pain Management Activity Restrictions/Additional Instructions: As we discussed you do have chronic obstructive pulmonary disease. It is vitally important that you do not smoke tobacco as this makes your condition worse and more difficult to treat. We recommend you continue your oxygen throughout the day until you are feeling better. We also recommend that you use your albuterol rescue inhaler frequently over the next several days to improve your symptoms. We have supplied you with a spacer to help this medication become more effective for you. We have also prescribed dexamethasone which is a steroid type medication to take 1 pill twice daily for the next 7 days to help with your treatment. If your symptoms do not continue to improve or worsen at any time return to this or the nearest emergency department for reevaluation. Otherwise follow-up with your regular doctor in approximately 2 weeks. Coding Level of Care Code ED Topstitcher Lockstitch for Estela Lino
[2022-10-31] MEDS: ipratropium-albuterol 3 mL Neb INHALATION ×2 (11:27→14:17)
[2022-10-31] MEDS: sodium chloride 0.9% 500 ML 999 ML IV (11:27)
[2022-10-31 11:29] LABS: Basophils # 0.1 10^3/uL (0.0-0.1); Basophils % 0.3 %; Hematocrit 48.4 % (37.0-47.0); Hemoglobin 16.2 g/dL (11.5-15.3); Lymphocytes # 16.3 10^3/uL (0.8-4.8); Lymphocytes % 66.9 %; Mean Corpuscular HGB Conc 33.5 g/dL (30.0-36.0); Mean Corpuscular Hemoglobin 29.7 pg (28.0-34.0); Mean Corpuscular Volume 88.6 fl (81-99); Mean Platelet Volume 9.7 fL (7.4-10.4); Monocytes # 1.2 10^3/uL (0.2-0.9); Monocytes % 4.9 %; Neutrophils # 6.56 10^3/uL (1.8-7.7); Neutrophils % 26.9 %; Nucleated Red Blood Cells % 0 %; Platelet Count 145 10^3/cmm (130-400); Red Blood Count 5.46 10^6/uL (4.1-5.3); Red Cell Distribution Width 15.1 % (12.1-15.1); White Blood Count 24.4 10^3/uL (4.0-10.0)
[2022-10-31 11:59] LABS: Slide Review Slide Review Perform
[2022-10-31 12:25] LABS: Alanine Aminotransferase 21 U/L (0-33); Albumin Level 3.9 g/dL (3.5-5.2); Alkaline Phosphatase 88 U/L (35-105); Anion Gap 19.4 (5-19); Aspartate Amino Transferase 28 U/L (0-32); Blood Urea Nitrogen 17 mg/dL (8-23); Calcium 8.6 mg/dL (8.5-10.5); Carbon Dioxide 27 mmol/L (22-29); Chloride 87 mmol/L (98-107); Globulin 2.9 g/dL (1.3-4.6); Glucose 119 mg/dL (65-115); NT Pro B Type Natriuretic Pept 457 pg/mL (0-450); Osmolality Calculated 271 mOsm/kg (285-295); Potassium 4.4 mmol/L (3.5-5.1); Sodium 129 mmol/L (136-145); Total Bilirubin 2.7 mg/dL (0.15-1.2); Total Protein 6.8 g/dL (6.6-8.7)
[2022-10-31] MEDS: dexamethasone 10 mg/mL INJ IVP (13:54)
--- NOTE | 2022-10-31 14:14 | ECG_ITS ---
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 Measurements Intervals [place] Rate: 96 P: 60 SC: 158 QRS: 10 QRSD: 86 T: 58 QT: 323 QTc: 408 Interpretive Statements SINUS RHYTHM LOW QRS VOLTAGE IN PRECORDIAL LEADS [QRS DEFLECTION < 1.0 mV IN CHEST LEADS] Compared to ECG 08/08/2020 13:05:15 Low QRS voltage now present Electronically Signed On 11-01-2022 11:35:26 CDT by Fermin Barry M.D. [id number]
--- NOTE | 2022-10-31 15:35 | PC.NURSE ---
Pt left ER with low O2. This nurse advised Dr that pt was 90% on 3L. Dr elected to DC pt regardless of low o2 level.
== END 2022-10-31 15:36 | disposition home or self-care (01) ==
PROVIDERS: Emergency Provider Emergency Medicine; PCP Nurse Practitioner Family
DX: J44.9 Chronic obstructive pulmonary disease, unspecified (principal); F17.218 Nicotine dependence, cigarettes, with other nicotine-induced disorders; C91.10 Chronic lymphocytic leukemia of B-cell type not having achieved remission; E78.5 Hyperlipidemia, unspecified; I10 Essential (primary) hypertension
CPT/HCPCS: 71045; 80053; 83880; 85025; 93005; 94640; 96361; 96374; 99285; J1100; J7040

== ENCOUNTER 2022-11-08 11:55 | Emergency (ER) | payer MEDICARE, BC, SELFPAY ==
[2022-11-08 12:00] VITALS: BP 122/77; PULSE 97; RESP 17; TEMP 36.6; O2SAT 93
--- NOTE | 2022-11-08 13:16 | ED_ITS ---
HPI - General Adult General: Chief complaint: General Medical Stated complaint: full body pain, weak, unable to walk Time Seen by Provider: 11/08/22 13:04 Source: patient and family () Mode of arrival: ambulatory History of Present Illness: This 77-year-old female with a history of COPD presents to the ER stating that she has pain from the top of my head to the tip of my toes . Pain started about a week ago and has progressively worsened. She has no fever, nausea or vomiting. She denies chest pain or shortness of breath. On further questioning, patient notes that she ran out of the oxycodone that she takes for chronic pain about a week ago. Reason being that she took a fall and as a result had to take more oxycodone to control her pain. She is not due for more pain medications till next week when she follows up with her primary care provider (Dr. Yarbrough). Patient is clinically stable with normal vital signs and is doing fine on her usual 3 L of oxygen at home. 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) Degenerative arthritis Diverticulosis hospitalized with diverticulitis in 2003 GERD (gastroesophageal reflux disease) Glaucoma 3 History of Isamar thyroiditis Hyperlipidemia Hypertension Hypothyroidism Surgical History History of carpal tunnel release right History of cataract surgery 2017 History of colonoscopy 03/2019 Dr Phan History of esophagogastroduodenoscopy (EGD) 03/2019 Dr Phan History of removal of cyst Removal of cysts from the back and left hand (ganglion cyst) History of subtotal thyroidectomy (~1984) History of tubal ligation Family History Denies family history of Clotting disorder Lung disease Cancer Social History Smoking and tobacco status: former smoker Alcohol intake: never Substance/Drug Use: never Household members: spouse Marital status: Physical Exam Const: COMMON NORMALS: no acute distress, patient oriented x3, no limitations and alert HENMT: COMMON NORMALS: normocephalic HEAD & SCALP: normocephalic Eye: COMMON NORMALS: EOMs intact bilaterally Neck/C-Spine: COMMON NORMALS: full ROM and supple Chest: COMMONS NORMALS: normal inspection of the chest Resp: COMMON NORMALS: normal respiratory effort, No retractions, No use of accessory muscles and clear to auscultation bilaterally AUSCULTATION: clear to auscultation bilaterally Cardio: COMMON NORMALS: regular rate, regular rhythm and No murmurs present (Cardio) RATE: regular rate RHYTHM: regular rhythm GI: COMMON NORMALS: Normal to inspection, nondistended, normoactive bowel sounds present and non-tender Back/Pelvis: OTHER: Patient has nonspecific generalized body pain extending from her head to her toes. Sitting up in bed, changing position and moving causes her pain. There are no localized areas of redness, tenderness to suggest trauma/infection. There is no neurovascular deficit. Extremity: GENERAL: Yes normal exam except as noted Neuro: COMMON NORMALS: patient oriented x3 and no focal motor deficits SENSORIUM/ORIENTATION: Yes alert Psych: COMMON NORMALS: mental status grossly normal and cooperative Course Vital Signs: Vital signs: Vital Signs Temperature 97.9 F 11/08/22 12:00 Pulse Rate 104 H 11/08/22 15:53 Respiratory Rate 15 11/08/22 15:53 Blood Pressure 140/89 11/08/22 15:53 Pulse Oximetry 96 11/08/22 15:53 Oxygen Delivery Me thod Nasal Cannula 11/08/22 15:53 Oxygen Flow Rate 2 11/08/22 15:53 [facility] - General Adult Medical Decision Making Medical decision making: History as above. Clinical exam is unremarkable. Patient has no localized pain in any particular part of the body. The pain she describes is generalized. The fact that she stopped taking her oxycodone about a week ago and pain has progressively worsened over the last week, makes me believe that abruptly stopping the medication she has been taking for a while, is responsible for her presentation. Work-up reveals an elevated white count which is chronic for patient. There is mild LFT derangement. I advised patient to repeat his LFTs when he follows up with his primary care physician next week. Besides the generalized pain, patient is clinically stable with normal vital signs. On reevaluation, (after receiving oxycodone) patient noted that the pain was much better though it had not completely gone away. I do not see any indication to admit her at this time. Patient does not want to be admitted either. Reasons to return were discussed. Patient and verbalized understanding and agree with the plan. Lab Data 11/08/22 13:44 11/08/22 13:44 Laboratory Results WBC 35.3 10^3/uL (4.0-10.0) H* 11/08/22 13:44 RBC 5.05 10^6/uL (4.1-5.3) 11/08/22 13:44 Hgb 14.7 g/dL (11.5-15.3) 11/08/22 13:44 Hct 45.0 % (37.0-47.0) 11/08/22 13:44 MCV 89.1 fl (81-99) 11/08/22 13:44 MCH 29.1 pg (28.0-34.0) 11/08/22 13:44 MCHC 32.7 g/dL (30.0-36.0) 11/08/22 13:44 RDW 15.0 % (12.1-15.1) 11/08/22 13:44 Plt Count 309 10^3/cmm (130-400) 11/08/22 13:44 MPV 8.9 fL (7.4-10.4) 11/08/22 13:44 Neut % (Auto) 24.3 % 11/08/22 13:44 Lymph % (Auto) 72.3 % 11/08/22 13:44 [place] % (Auto) 1.6 % 11/08/22 13:44 Eos % (Auto) 0.1 % 11/08/22 13:44 Baso % (Auto) 0.2 % 11/08/22 13:44 Neut # (Auto) 8.58 10^3/uL (1.8-7.7) H 11/08/22 13:44 Lymph # (Auto) 25.5 10^3/uL (0.8-4.8) H 11/08/22 13:44 [place] # (Auto) 0.6 10^3/uL (0.2-0.9) 11/08/22 13:44 Eos # (Auto) 0.0 10^3/uL (0.0-0.8) 11/08/22 13:44 Baso # (Auto) 0.1 10^3/uL (0.0-0.1) 11/08/22 13:44 Nucleated RBC % (auto) 0 % 11/08/22 13:44 Nucleated RBCs # 0.0 /100WBC 11/08/22 13:44 Sodium 132 mmol/L (136-145) L 11/08/22 13:44 Potassium 4.5 mmol/L (3.5-5.1) 11/08/22 13:44 Chloride 95 mmol/L (98-107) L 11/08/22 13:44 Carbon Dioxide 29 mmol/L (22-29) 11/08/22 13:44 Anion Gap 12.5 (5-19) 11/08/22 13:44 BUN 12 mg/dL (8-23) 11/08/22 13:44 Creatinine 0.6 mg/dL (0.5-0.9) 11/08/22 13:44 GFR Calculation Not Reportable 11/08/22 13:44 Glucose 178 mg/dL (65-115) H 11/08/22 13:44 Calculated Osmolality 278 mOsm/kg (285-295) L 11/08/22 13:44 Calcium 8.2 mg/dL (8.5-10.5) L 11/08/22 13:44 Total Bilirubin 0.7 mg/dL (0.15-1.2) 11/08/22 13:44 AST 59 U/L (0-32) H 11/08/22 13:44 ALT 126 U/L (0-33) H 11/08/22 13:44 Alkaline Phosphatase 120 U/L (35-105) H 11/08/22 13:44 Total Protein 6.8 g/dL (6.6-8.7) 11/08/22 13:44 Albumin 3.4 g/dL (3.5-5.2) L 11/08/22 13:44 Globulin 3.4 g/dL (1.3-4.6) 11/08/22 13:44 Urine Color Straw (Yellow) 11/08/22 16:25 Urine Appearance Clear (CLEAR) 11/08/22 16:25 Urine pH 5 (5-7) 11/08/22 16:25 Ur Specific [place] 1.005 (1.005-1.030) 11/08/22 16:25 Urine Protein Neg (Negative) 11/08/22 16:25 Urine Glucose (UA) Norm (Normal) 11/08/22 16:25 Urine Ketones Negative (Negative) 11/08/22 16:25 Urine Blood Neg (Negative) 11/08/22 16:25 Urine Nitrate Negative (Negative) 11/08/22 16:25 Urine Bilirubin Neg (Negative) 11/08/22 16:25 Urine Urobilinogen 4 mg/dL (Negative) H 11/08/22 16:25 Ur Leukocyte Esterase Negative (Negative) 11/08/22 16:25 SARS-CoV-2 Ag (Rapid) negative (Negative) 11/08/22 15:29 Discharge Plan Discharge Patient Disposition: Home Clinical Impression: Generalized pain, Abnormal liver function test Condition: Stable Prescriptions: New oxycodone 5 mg tablet 5 mg PO BID PRN (Reason: pain) Qty: 10 0RF No Action alprazolam 0.5 mg tablet 0.5 mg PO TID PRN (Reason: Anxiety) krill oil 500 mg capsule 500 mg PO BEDTIME@18 multivitamin Tablet 1 tab PO DAILY spironolactone 25 mg tablet 25 mg PO DAILY@07 omeprazole 20 mg capsule,delayed release(DR/EC) 20 mg PO QAM Synthroid 75 mcg tablet 75 mcg PO DAILY@07 cyclobenzaprine 10 mg tablet 10 mg PO BID PRN (Reason: Muscle Spasm) Spiriva with HandiHaler 18 mcg capsule, w/inhalation device 1 cap inhalation DAILY Qty: 14 0RF Rx Instructions: puncture 1 cap using device; one dose = 2 inhalations lovastatin 40 mg tablet 40 mg PO DAILY@18 Vitamin C 500 mg Tablet 500 mg PO DAILY PRN (Reason: unknown) albuterol sulfate 90 mcg/actuation HFA aerosol inhaler 1 - 2 puff INHALATION Q4H PRN (Reason: Shortness Of Breath) Nicolette Back and Body 500-32.5 mg Tablet 1 tab PO Q6H PRN (Reason: Pain) Probiotic Blend 2 billion cell-50 mg Capsule 2 cap PO DAILY@12 oxycodone 5 mg tablet 5 - 10 mg PO DAILY PRN (Reason: pain) Rx Instructions: pt states out rx filled 10/12/22 30d/s fluticasone furoate-vilanterol [Breo Ellipta] 200-25 mcg/dose Blister With Device 1 inh INHALATION DAILY dexamethasone 4 mg tablet 4 mg PO BID Qty: 14 0RF Rx Instructions: for 7 days (rx filled 11/02/22) Discharge Orders: Discharge ED (Routine); Ordered 11/08/22 Ordered By: Justina Fuller Referrals: Mindy Knight FNP [Primary Care Provider] - Discharge Diet: Usual diet Discharge Activity: Resume usual activity Patient Instructions: Opioid Safety, Pain Management Activity Restrictions/Additional Instructions: Take oxycodone only for severe pain. Follow-up with your primary care physician as already scheduled during the week. Be sure to repeat your liver function tests through your primary care physician. Return if you develop fever with temperature of 100.4 or more, worsening pain despite taking your pain medications or if you develop any new concerning symptoms. Coding Level of Care Code ED [employer] for Estela Lino
[2022-11-08 13:35] VITALS: RESP 16; O2SAT 97
[2022-11-08] MEDS: oxyCODONE 5 mg IR Tab/Cap PO ×2 (13:35→15:00)
[2022-11-08 13:50] LABS: Basophils # 0.1 10^3/uL (0.0-0.1); Basophils % 0.2 %; Eosinophils % 0.1 %; Hemoglobin 14.7 g/dL (11.5-15.3); Lymphocytes # 25.5 10^3/uL (0.8-4.8); Lymphocytes % 72.3 %; Mean Corpuscular HGB Conc 32.7 g/dL (30.0-36.0); Mean Corpuscular Hemoglobin 29.1 pg (28.0-34.0); Mean Corpuscular Volume 89.1 fl (81-99); Mean Platelet Volume 8.9 fL (7.4-10.4); Monocytes # 0.6 10^3/uL (0.2-0.9); Monocytes % 1.6 %; Neutrophils # 8.58 10^3/uL (1.8-7.7); Neutrophils % 24.3 %; Nucleated Red Blood Cells % 0 %; Platelet Count 309 10^3/cmm (130-400); Red Blood Count 5.05 10^6/uL (4.1-5.3)
[2022-11-08 14:18] LABS: Alanine Aminotransferase 126 U/L (0-33); Albumin Level 3.4 g/dL (3.5-5.2); Alkaline Phosphatase 120 U/L (35-105); Anion Gap 12.5 (5-19); Aspartate Amino Transferase 59 U/L (0-32); Blood Urea Nitrogen 12 mg/dL (8-23); Calcium 8.2 mg/dL (8.5-10.5); Carbon Dioxide 29 mmol/L (22-29); Chloride 95 mmol/L (98-107); Creatinine Clr Calc Pharmacy 61.4308; Globulin 3.4 g/dL (1.3-4.6); Glucose 178 mg/dL (65-115); Osmolality Calculated 278 mOsm/kg (285-295); Potassium 4.5 mmol/L (3.5-5.1); Sodium 132 mmol/L (136-145); Total Bilirubin 0.7 mg/dL (0.15-1.2); Total Protein 6.8 g/dL (6.6-8.7)
[2022-11-08 14:50] LABS: Slide Review Slide Review Perform
[2022-11-08 14:51] LABS: White Blood Count 35.3 10^3/uL (4.0-10.0)
[2022-11-08 15:00] VITALS: RESP 16; O2SAT 94
[2022-11-08 15:53] VITALS: BP 140/89; PULSE 104; RESP 15; O2SAT 96
[2022-11-08 16:28] LABS: Add Urine Microscopic? NO; Charge for UA Resulting for Rev
[2022-11-08 16:37] LABS: SARS Covid-2 Antigen negative (Negative)
[2022-11-08 16:42] LABS: Bilirubin Urine Neg (Negative); Blood Urine Neg (Negative); Glucose Urine UA Norm (Normal); Ketones Urine Negative (Negative); Leukocyte Esterase Urine Negative (Negative); Nitrate Urine Negative (Negative); Protein Urine Neg (Negative); Specific Gravity, Urine 1.005 (1.005-1.030); Urine Appearance Clear (CLEAR); Urine Color Straw (Yellow); Urobilinogen Urine 4 mg/dL (Negative); pH Urine 5 (5-7)
[2022-11-08 17:23] VITALS: BP 131/85; PULSE 107; O2SAT 93
== END 2022-11-08 17:25 | disposition home or self-care (01) ==
PROVIDERS: Emergency Provider Family Medicine; PCP Nurse Practitioner Family
DX: R52 Pain, unspecified (principal); R94.5 Abnormal results of liver function studies
CPT/HCPCS: 36415; 80053; 81003; 85025; 87426; 99283

== ENCOUNTER 2022-11-09 18:29 | Inpatient (IN) | payer MEDICARE, BC, SELFPAY ==
[2022-11-09 18:30] VITALS: BMI 25.8
[2022-11-09 18:35] VITALS: BP 116/59; PULSE 106; RESP 22; TEMP 37.5; O2SAT 82
--- NOTE | 2022-11-09 19:07 | XRR_ITS ---
PROCEDURE INFORMATION: Exam: XR Chest Exam date and time: 11/09/2022 7:23 PM Age: 77 years old Clinical indication: Other: Weakness; Additional info: Fever TECHNIQUE: Imaging protocol: Radiologic exam of the chest. Views: 1 view. COMPARISON: CR (CHEST, ) 10/31/2022 11:31 AM FINDINGS: Lungs: Strandy opacity at the left lung base noted. Lungs are otherwise clear. Pleural spaces: No pleural effusion. No pneumothorax. Heart/Mediastinum: Cardiac silhouette is normal in size for technique. Vasculature: Mild aortic calcification without dilation. Bones/joints: Age appropriate. XR/XR chest 1V portable [id number] IMPRESSION: Strandy opacity at the left lung base may reflect atelectasis, aspiration, or developing pneumonia. Exam is otherwise normal for age.
--- NOTE | 2022-11-09 19:09 | ED_ITS ---
HPI - Weakness General: Chief complaint: Weakness Stated complaint: weakness Time Seen by Provider: 11/09/22 18:38 Source: patient Mode of arrival: EMS Limitations: no limitations History of Present Illness: This patient returns to our emergency department because of generalized body aches and malaise that has been occurring over the past several days. She was previously seen in this emergency department on 31 October for COPD exacerbation without any evidence of pneumonia or other infection at that time. She states that she is felt febrile but has not documented fever. 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 She received a short course of dexamethasone at her discharge from the last visit but no antibiotics at that time given her lack of signs of infection. She denies any known exposure to infectious disease, recent travel, and family members who are ill. She has been immunized against COVID-19 as well as influenza. She has chronic lymphocytic leukemia. Associated symptoms: Reports chills and fever(s); Denies chest pain, dysuria, headache(s), nausea or vomiting Review of Systems Const: Reports: fever(s), chills and body aches Eyes: Denies: change in vision ENMT: Denies: throat pain, odynophagia, nasal congestion or nasal obstruction Card: Denies: chest pain, dyspnea on exertion or orthopnea Resp: Denies: dyspnea, productive cough or non-productive cough GI: Denies: abdominal pain, nausea, vomiting or diarrhea : Denies: flank pain, difficulty voiding, dysuria or urinary frequency Musc: Denies: neck pain, back pain, extremity pain or extremity swelling Skin/Breast: Denies: rash or pruritus Neuro: Denies: headache(s), numbness in extremities or weakness in extremities Endo: Denies: polyuria or polydipsia PFSH ED PFSH: Medical History Anxiety 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) Degenerative arthritis Diverticulosis hospitalized with diverticulitis in 2003 GERD (gastroesophageal reflux disease) Glaucoma 3 History of Isamar thyroiditis Hyperlipidemia Hypertension Hypothyroidism Surgical History History of carpal tunnel release right History of cataract surgery 2017 History of colonoscopy 03/2019 Dr Phan History of esophagogastroduodenoscopy (EGD) 03/2019 Dr Phan History of removal of cyst Removal of cysts from the back and left hand (ganglion cyst) History of subtotal thyroidectomy (~1984) History of tubal ligation Family History Denies family history of Clotting disorder Lung disease Cancer Social History Smoking and tobacco status: former smoker Alcohol intake: never Substance/Drug Use: never Household members: spouse Marital status: Physical Exam Narrative: EXAM NARRATIVE: She is alert and responds appropriately to questions. She answers in a goal- directed fashion and is intact mentation. Const: COMMON NORMALS: patient oriented x3 GENERAL APPEARANCE: cooperative NUTRITIONAL APPEARANCE: overweight HENMT: COMMON NORMALS: normocephalic, atraumatic, Normal nasal mucous membranes and turbinates present, moist oral mucous membranes and oropharynx normal HEAD & SCALP: normocephalic and atraumatic FACE & SINUS: sinuses nontender and face symmetric NOSE: Normal nasal mucous membranes and turbinates present Eye: COMMON NORMALS: Equal, round and reactive pupils present, EOMs intact bilaterally and conjunctivae normal CONJUNCTIVA: Yes conjunctivae normal and Yes conjunctival abnormal PUPIL: Yes Equal, round and reactive pupils present Neck/C-Spine: COMMON NORMALS: full ROM, no lymphadenopathy, supple and no JVD Chest: COMMONS NORMALS: normal inspection of the chest and normal palpation of entire chest wall Resp: COMMON NORMALS: normal respiratory effort, No retractions and No use of accessory muscles EFFORT & INSPECTION: Yes able to speak in complete sentences AUSCULTATION: crackles Cardio: COMMON NORMALS: no JVD, regular rate and Peripheral pulses 2+ throughout RATE: regular rate and tachycardic PERIPHERAL PULSES: Peripheral pulses 2+ throughout GI: COMMON NORMALS: Normal to inspection, nondistended, normoactive bowel sounds present, Soft to palpation, non-tender and no masses PALPATION: Yes Soft to palpation : COMMON NORMALS: Yes no CVA tenderness BLADDER/KIDNEY EXAM: Yes no CVA tenderness Back/Pelvis: COMMON NORMALS: no CVA tenderness, thoracic and lumbar spine normal to inspection, no thoracic nor lumbar tenderness and thoraco-lumbar ROM normal Extremity: COMMON NORMALS: normal to inspection, full ROM, capillary refill normal, no joint enlargement and no calf tenderness Neuro: COMMON NORMALS: patient oriented x3, moves all extremities, no focal motor deficits and no sensory deficits noted CRANIAL NERVES: Yes CN normal except as noted Psych: COMMON NORMALS: mental status grossly normal Skin: COMMON NORMALS: no rashes or lesions noted, no wounds and turgor normal GENERAL SKIN EXAM: no rashes or lesions noted and turgor normal Course Reevaluation(s): Reevaluation #1: Patient remained stable. Given her history of CML with fever tonight and chest x-ray suggestive of possible developing radiographic pneumonia with her clinical picture I think is reasonable for us to continue IV fluids, IV antibiotics, oxygen support and placed in observation status. Time: 22:58 Consultations: Consultation #1: Discussed with Dr. Caldera who agrees to admit patient Time: 23:28 Vital Signs: Vital signs: Vital Signs Temperature 98.3 F 11/09/22 22:12 Pulse Rate 93 11/09/22 22:12 Respiratory Rate 22 H 11/09/22 22:12 Blood Pressure 103/66 11/09/22 22:12 Pulse Oximetry 96 11/09/22 22:12 Oxygen Delivery Me thod Nasal Cannula 11/09/22 22:12 Oxygen Flow Rate 4 11/09/22 22:12 MDM - Weakness Medical Decision Making Returns to the emergency department with history of having malaise and body aches and subjective fevers over the past several days. Had a mild nonproductive cough as well. She has a history of COPD that is intermittently oxygen requiring. He denies any sustained chest pain, nausea vomiting diarrhea or known exposure to infectious disease. She has a history of CLL. At presentation she was noted to be febrile at 101+ degrees. She was also noted to be tachycardic. She was alert and had intact mentation. Her lung examination revealed's few scattered crackles predominantly at the base with some decreased breath sounds throughout. No other significant focal findings were noted. Work-up ensued revealed chest x-ray suggestive of a right lower lobe pneumonia. Her lactate level was reassuring mitigating against sepsis same time the patient was given IV fluids, loading dose of ceftriaxone. She was noted to have a hyponatremia on her chemistries but no other concerning findings. It was felt that because of her febrile illness with her COPD superimposed on her CLL which likely compromises white cell function it would be best to place her in observation status to sure that she continues to improve clinically. Medical Records I reviewed the patient's medical records. Lab Data I reviewed the patient's lab results. 11/09/22 19:33 11/09/22 19:33 Radiology Impressions Chest X-Ray 11/09/22 19:07 IMPRESSION: Strandy opacity at the left lung base may reflect atelectasis, aspiration, or developing pneumonia. Exam is otherwise normal for age. Laboratory Results WBC 46.7 10^3/uL (4.0-10.0) H* 11/09/22 19:33 RBC 4.41 10^6/uL (4.1-5.3) 11/09/22 19: Hgb 13.1 g/dL (11.5-15.3) 11/09/22 19: Hct 40.2 % (37.0-47.0) 11/09/22 19: MCV 91.2 fl (81-99) 11/09/22 19: MCH 29.7 pg (28.0-34.0) 11/09/22 19: MCHC 32.6 g/dL (30.0-36.0) 11/09/22 19: RDW 15.1 % (12.1-15.1) 11/09/22 19: Plt Count 280 10^3/cmm (130-400) 11/09/22 19: MPV 8.8 fL (7.4-10.4) 11/09/22 19:33 Neut % (Auto) 32.0 % 11/09/22 19: Lymph % (Auto) 64.7 % 11/09/22 19:33 [place] % (Auto) 1.5 % 11/09/22 19:33 Eos % (Auto) 0.0 % 11/09/22 19: Baso % (Auto) 0.3 % 11/09/22 19: Neut # (Auto) 14.95 10^3/uL (1.8-7.7) H 11/09/22 19:33 Lymph # (Auto) 30.2 10^3/uL (0.8-4.8) H 11/09/22 19: [place] # (Auto) 0.7 10^3/uL (0.2-0.9) 11/09/22 19:33 Eos # (Auto) 0.0 10^3/uL (0.0-0.8) 11/09/22 19:33 Baso # (Auto) 0.1 10^3/uL (0.0-0.1) 11/09/22 19:33 Nucleated RBC % (auto) 0 % 11/09/22 19:33 Nucleated RBCs # 0.0 /100WBC 11/09/22 19:33 Sodium 128 mmol/L (136-145) L 11/09/22 19:33 Potassium 4.5 mmol/L (3.5-5.1) 11/09/22 19:33 Chloride 95 mmol/L (98-107) L 11/09/22 19:33 Carbon Dioxide 26 mmol/L (22-29) 11/09/22 19:33 Anion Gap 11.5 (5-19) 11/09/22 19:33 BUN 11 mg/dL (8-23) 11/09/22 19:33 Creatinine 0.5 mg/dL (0.5-0.9) 11/09/22 19:33 GFR Calculation Not Reportable 11/09/22 19:33 Glucose 164 mg/dL (65-115) H 11/09/22 19:33 Calculated Osmolality 269 mOsm/kg (285-295) L 11/09/22 19:33 Lactic Acid 1.2 mmol/L (0.5-2.2) 11/09/22 19:33 Calcium 7.3 mg/dL (8.5-10.5) L 11/09/22 19:33 Total Bilirubin 0.9 mg/dL (0.15-1.2) 11/09/22 19:33 AST 14 U/L (0-32) 11/09/22 19:33 ALT 56 U/L (0-33) H 11/09/22 19:33 Alkaline Phosphatase 92 U/L (35-105) 11/09/22 19:33 Total Protein 5.6 g/dL (6.6-8.7) L 11/09/22 19:33 Albumin 2.5 g/dL (3.5-5.2) L 11/09/22 19:33 Globulin 3.1 g/dL (1.3-4.6) 08/21/23 19:33 Urine Color Yellow (Yellow) 11/09/22 22:08 Urine Appearance Clear (CLEAR) 11/09/22 22:08 Urine pH 5 (5-7) 11/09/22 22:08 Ur Specific [place] 1.020 (1.005-1.030) 11/09/22 22:08 Urine Protein Trace (Negative) 11/09/22 22:08 Urine Glucose (UA) Norm (Normal) 11/09/22 22:08 Urine Ketones Negative (Negative) 11/09/22 22:08 Urine Blood 2+ (Negative) H 11/09/22 22:08 Urine Nitrate Negative (Negative) 11/09/22 22:08 Urine Bilirubin Neg (Negative) 11/09/22 22:08 Urine Urobilinogen 1 mg/dL (Negative) H 11/09/22 22:08 Ur Leukocyte Esterase Negative (Negative) 11/09/22 22:08 Urine RBC 0-4 /hpf (0-2) H 11/09/22 22:08 Urine WBC None /hpf (0-5) 11/09/22 22:08 Ur Squamous Epith Cells 5-10 /hpf (0-5) H 11/09/22 22:08 Amorphous Sediment Not Reportable 11/09/22 22:08 Urine Bacteria 1+ /hpf (NONE) H 11/09/22 22:08 Urine Mucus 1+ /hpf 11/09/22 22:08 EKG Data EKG 1: I personally reviewed and interpreted this EKG as follows: Interpretation: Contemporaneous review of resting EKG reveals a sinus tachycardia [address] interval, QRS duration, corrected QT interval. [place] are normal. Poss ible left atrial enlargement by voltage criteria but otherwise no acute ST-T wave changes. She does have evidence of loss of R wave anterior precordial leads suggestive of possible remote anterior wall DE. This EKG is unchanged from prior tracings within our system. Discharge Plan Discharge Patient Disposition: Admitted As Inpatient Clinical Impression: Community acquired pneumonia, CLL (chronic lymphocytic leukemia), Hyponatremia Condition: Stable Coding Level of Care Code ED Account Supervisor for Estela Lino
--- NOTE | 2022-11-09 19:09 | ECG_ITS ---
[facility] Test Date: 2022-11-09 Pat Name: Sue Delgado Department: Room: Gender: Female Pharmacist In Charge: : 1945 Requested By: Placido Oliver Order Number: [id number] Abilio MD: Ana Bray M.D. Measurements Intervals Rogers Rate: 104 P: 43 HI: 136 QRS: -13 QRSD: 89 T: 52 QT: 319 QTc: 420 Interpretive Statements SINUS TACHYCARDIA POSSIBLE LEFT ATRIAL ENLARGEMENT [-0.1mV P-WAVE IN V1/V2] LOW QRS VOLTAGE IN PRECORDIAL LEADS [QRS DEFLECTION < 1.0 mV IN CHEST LEADS] POSSIBLE ANTERIOR MYOCARDIAL INFARCTION , PROBABLY OLD [30 ms Q WAVE IN V3/V4, OR R < 0.2 mV IN V4] ABNORMAL RHYTHM ECG Compared to ECG 10/31/2022 14:14:46 Myocardial infarct finding now present Sinus rhythm no longer present Electronically Signed On 11-10-2022 6:42:36 CDT by Ana Bray M.D. [id number]
[2022-11-09 19:44] LABS: Basophils # 0.1 10^3/uL (0.0-0.1); Basophils % 0.3 %; Hematocrit 40.2 % (37.0-47.0); Hemoglobin 13.1 g/dL (11.5-15.3); Lymphocytes # 30.2 10^3/uL (0.8-4.8); Lymphocytes % 64.7 %; Mean Corpuscular HGB Conc 32.6 g/dL (30.0-36.0); Mean Corpuscular Hemoglobin 29.7 pg (28.0-34.0); Mean Corpuscular Volume 91.2 fl (81-99); Mean Platelet Volume 8.8 fL (7.4-10.4); Monocytes # 0.7 10^3/uL (0.2-0.9); Monocytes % 1.5 %; Neutrophils # 14.95 10^3/uL (1.8-7.7); Nucleated Red Blood Cells % 0 %; Platelet Count 280 10^3/cmm (130-400); Red Blood Count 4.41 10^6/uL (4.1-5.3); Red Cell Distribution Width 15.1 % (12.1-15.1)
[2022-11-09 20:08] LABS: Lactic Sepsis W/Reflex 1.2 mmol/L (0.5-2.2)
[2022-11-09 20:09] LABS: Alanine Aminotransferase 56 U/L (0-33); Albumin Level 2.5 g/dL (3.5-5.2); Alkaline Phosphatase 92 U/L (35-105); Anion Gap 11.5 (5-19); Aspartate Amino Transferase 14 U/L (0-32); Blood Urea Nitrogen 11 mg/dL (8-23); Calcium 7.3 mg/dL (8.5-10.5); Carbon Dioxide 26 mmol/L (22-29); Chloride 95 mmol/L (98-107); Creatinine Clr Calc Pharmacy 65.3408; Globulin 3.1 g/dL (1.3-4.6); Glucose 164 mg/dL (65-115); Osmolality Calculated 269 mOsm/kg (285-295); Potassium 4.5 mmol/L (3.5-5.1); Sodium 128 mmol/L (136-145); Total Bilirubin 0.9 mg/dL (0.15-1.2); Total Protein 5.6 g/dL (6.6-8.7)
[2022-11-09 20:31] LABS: Slide Review Slide Review Perform
[2022-11-09 20:32] LABS: White Blood Count 46.7 10^3/uL (4.0-10.0)
[2022-11-09] MEDS: acetaminophen 325 mg Tablet 650 MG PO (20:51)
[2022-11-09] MEDS: cefTRIAXone 2,000 MG in sodium chloride 0.9% (plus) 50 ML 100 MG IV (20:51)
[2022-11-09] MEDS: sodium chloride 0.9% 1,000 ML 999 ML IV (20:52)
[2022-11-09 20:58] VITALS: BP 107/56; PULSE 103; RESP 24; O2SAT 94
[2022-11-09 22:12] VITALS: BP 103/66; PULSE 93; RESP 22; TEMP 36.8; O2SAT 96
[2022-11-09 22:20] LABS: Glucose Urine UA Norm (Normal); Ketones Urine Negative (Negative); Protein Urine Trace (Negative); Urine Appearance Clear (CLEAR); Urine Color Yellow (Yellow); pH Urine 5 (5-7)
[2022-11-09 22:21] LABS: Add Urine Culture? No; Add Urine Microscopic? YES; Bacteria Urine 1+ /hpf; Bilirubin Urine Neg (Negative); Blood Urine 2+ (Negative); Leukocyte Esterase Urine Negative (Negative); Mucus Urine 1+ /hpf; Nitrate Urine Negative (Negative); RBC Urine 0-4 /hpf (0-2); Urobilinogen Urine 1 mg/dL (Negative)
[2022-11-09 23:53] LABS: SARS Covid-2 Antigen negative (Negative)
[2022-11-10] VITALS (16 sets, daily range): BP systolic 102–128; BP diastolic 58–91; PULSE 74–99; RESP 16–20; TEMP 36.2–37.3; O2SAT 92–96
[2022-11-10] MEDS: azithromycin 500 MG in sodium chloride 0.9% 250 ML 250 MG IV ×2 (00:18→22:46)
--- NOTE | 2022-11-10 00:47 | P.HP_ITS ---
Providers/Chief Complaint Admitting Physician: Ara Caldera MD Primary Care Provider: REYNA Patel Chief Complaint: weakness History of Present Illness Sue Delgado is a 77 year old female who presented to the emergency room via EMS because she had not been feeling well for several days. She has a history of COPD. Her breathing has been worse lately, primarily shortness of breath and wheezing. She has had not really had an increased cough or significant sputum production. She describes hurting all over, not being able to get around or move her legs. Thinks that steroid she received recently made her feel worse. She was seen in the emergency room with COPD exacerbation on October 31 and received a course of dexamethasone. She has had some chills and subjective fevers. No nausea or vomiting. No energy. She had a fall some weeks ago that was accidental in nature. She had increased pain after this and does admit to running out of her oxycodone but does not feel that that has anything to do with current presentation. No other recent medication changes. She denies chest pain or palpitations. Work-up in the emergency room tonight showed opacity in the right lower lobe suggesting pneumonia. Lactate level was normal. She was given some IV fluids and antibiotics and request was made for admission. Review of Systems General: Reports: Other (ROS as per HPI or as otherwise noted here) Const: Reports: change in appetite and change in weight ENMT: Denies: throat pain Card: Denies: edema Resp: Denies: pain on inspiration or hemoptysis GI: Reports: heartburn Musc: Reports: joint pain Neuro: Reports: weakness in extremities Medications/Allergies Home Medications Medication Instructions Recorded Confirmed Last Taken Type multivitamin 1 tab PO DAILY 08/08/20 11/10/22 2 Days Ago History ~11/08/22 omeprazole 20 mg capsule,delayed 20 mg PO QAM 08/08/20 11/10/22 2 Days Ago His tory release ~11/08/22 spironolactone 25 mg tablet 25 mg PO DAILY@08/08/20 11/10/22 11/08/22 History alprazolam 0.5 mg tablet 0.5 mg PO TID PRN Anxiety 02/26/22 11/10/22 2 Days Ago History ~11/08/22 krill oil 500 mg capsule 500 mg PO BEDTIME@18 02/26/22 11/10/22 2 Days Ago History ~11/08/22 levothyroxine 75 mcg tablet 75 mcg PO DAILY@07 02/26/22 11/10/22 11/08/22 Histor y (Synthroid) cyclobenzaprine 10 mg tablet 10 mg PO BID PRN Muscle Spasm 07/06/22 11/10/22 U nknown History tiotropium bromide 18 mcg capsule 1 cap inhalation DAILY #14 07/08/22 11/10/22 2 Days Ago Rx with inhalation device (Spiriva inhalations ~11/08/22 with HandiHaler) fluticasone furoate 200 1 inh inhalation DAILY 10/31/22 11/10/22 2 Days Ago History mcg-vilanterol 25 mcg/dose ~11/08/22 inhalation powder (Breo Ellipta) L.acidophil-L.casei-B.bifid-B.longum-FOS 2 cap PO DAILY@12 11/08/22 11/10/22 2 Days Ago History 2 billion cell-50 mg capsule ~11/08/22 (Probiotic Blend) albuterol sulfate 90 mcg/actuation 1 - 2 puff inhalation Q4H PRN 11/08/22 11/10/22 Unknown History aerosol inhaler Shortness Of Breath ascorbic acid (vitamin C) 500 mg 500 mg PO DAILY PRN unknown 11/08/22 11/10/22 2 Days Ago History tablet (Vitamin C) ~11/08/22 aspirin-caffeine 500 mg-32.5 mg 1 tab PO Q6H PRN Pain 11/08/22 11/10/22 Unknown History tablet (Nicolette Back and Body) lovastatin 40 mg tablet 40 mg PO DAILY@18 11/08/22 11/10/22 2 Days Ago History ~11/08/22 oxycodone 5 mg tablet 5 mg PO BID PRN pain #10 tabs 11/08/22 11/10/22 Unknown Rx Allergies Allergy/AdvReac Type Severity Reaction Status Date / Time naproxen Allergy Unknown Verified 11/10/22 01:02 steroids Allergy ADR-Blurry Uncoded 11/10/22 01:02 Vision PFSH Acute PFSH: Medical History (Updated 11/10/22 @ 09:03 by Ara Caldera MD) Anxiety 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) COPD (chronic obstructive pulmonary disease) Degenerative arthritis Diverticulosis hospitalized with diverticulitis in 2003 GERD (gastroesophageal reflux disease) Glaucoma 3 History of Isamar thyroiditis Hyperlipidemia Hypertension Hypothyroidism Surgical History History of carpal tunnel release right History of cataract surgery 2017 History of colonoscopy 03/2019 Dr Phan History of esophagogastroduodenoscopy (EGD) 03/2019 Dr Phan History of removal of cyst Removal of cysts from the back and left hand (ganglion cyst) History of subtotal thyroidectomy (~1984) History of tubal ligation Family History Denies family history of Clotting disorder Lung disease Cancer Social History Smoking and tobacco status: former smoker Alcohol intake: never Substance/Drug Use: never Household members: spouse Marital status: Vitals/I&O/Wt Last Vital Signs Temp 98.3 F 11/10/22 00:23 Pulse 82 11/10/22 00:23 Resp 20 H 11/10/22 00:23 BP 126/91 11/10/22 00:23 Pulse Ox 94 11/10/22 00:23 O2 Del Method Nasal Cannula 11/10/22 00:23 O2 Flow Rate 4 11/10/22 00:23 Weight last 48 hrs Weight 77.111 kg Physical Exam Narrative: Patient is awake and alert. Chronic ill appearance. Normocephalic. Extraocular movements are intact. Dry mucous membranes. Lungs with scattered wheezes, no rhonchi noted. Cardiovascular exam reveals a regular rhythm, heart sounds are distant. Abdomen is soft, with positive bowel sounds. Patient is tender to palpation in most musculature. No pitting edema. Pulses are intact. Speech is clear. Generally weak but moves all extremities. Data 11/10/22 05:09 11/10/22 05:09 Other Labs: Radiology Impressions Chest X-Ray 11/09/22 19:07 IMPRESSION: Strandy opacity at the left lung base may reflect atelectasis, aspiration, or developing pneumonia. Exam is otherwise normal for age. Laboratory Results WBC 46.7 10^3/uL (4.0-10.0) H* 11/09/22 19:33 RBC 4.41 10^6/uL (4.1-5.3) 11/09/22 19: Hgb 13.1 g/dL (11.5-15.3) 11/09/22 19: Hct 40.2 % (37.0-47.0) 11/09/22 19: MCV 91.2 fl (81-99) 11/09/22 19: MCH 29.7 pg (28.0-34.0) 11/09/22 19: MCHC 32.6 g/dL (30.0-36.0) 11/09/22 19: RDW 15.1 % (12.1-15.1) 11/09/22: Plt Count 280 10^3/cmm (130-400) 11/09/22 19: MPV 8.8 fL (7.4-10.4) 11/09/22 19: Neut % (Auto) 32.0 % 11/09/22 19: Lymph % (Auto) 64.7 % 11/09/22 19: [place] % (Auto) 1.5 % 11/09/22 19: Eos % (Auto) 0.0 % 11/09/22: Baso % (Auto) 0.3 % 11/09/22: Neut # (Auto) 14.95 10^3/uL (1.8-7.7) H 11/09/22 19: Lymph # (Auto) 30.2 10^3/uL (0.8-4.8) H 11/09/22 19: [place] # (Auto) 0.7 10^3/uL (0.2-0.9) 11/09/22 19: Eos # (Auto) 0.0 10^3/uL (0.0-0.8) 11/09/22 19: Baso # (Auto) 0.1 10^3/uL (0.0-0.1) 11/09/22 19: Nucleated RBC % (auto) 0 % 11/09/22 19: Nucleated RBCs # 0.0 /100WBC 11/09/22 19: Sodium 128 mmol/L (136-145) L 11/09/22 19:33 Potassium 4.5 mmol/L (3.5-5.1) 11/09/22 19:33 Chloride 95 mmol/L (98-107) L 11/09/22 19:33 Carbon Dioxide 26 mmol/L (22-29) 11/09/22 19:33 Anion Gap 11.5 (5-19) 11/09/22 19:33 BUN 11 mg/dL (8-23) 11/09/22 19:33 Creatinine 0.5 mg/dL (0.5-0.9) 11/09/22 19:33 GFR Calculation Not Reportable 11/09/22 19:33 Glucose 164 mg/dL (65-115) H 11/09/22 19:33 Calculated Osmolality 269 mOsm/kg (285-295) L 11/09/22 19:33 Lactic Acid 1.2 mmol/L (0.5-2.2) 11/09/22 19:33 Calcium 7.3 mg/dL (8.5-10.5) L 11/09/22 19:33 Total Bilirubin 0.9 mg/dL (0.15-1.2) 11/09/22 19:33 AST 14 U/L (0-32) 11/09/22 19:33 ALT 56 U/L (0-33) H 11/09/22 19:33 Alkaline Phosphatase 92 U/L (35-105) 11/09/22 19:33 Total Protein 5.6 g/dL (6.6-8.7) L 11/09/22 19:33 Albumin 2.5 g/dL (3.5-5.2) L 11/09/22 19:33 Globulin 3.1 g/dL (1.3-4.6) 11/09/22 19:33 Urine Color Yellow (Yellow) 11/09/22 22:08 Urine Appearance Clear (CLEAR) 11/09/22 22:08 Urine pH 5 (5-7) 11/09/22 22:08 Ur Specific [place] 1.020 (1.005-1.030) 11/09/22 22:08 Urine Protein Trace (Negative) 11/09/22 22:08 Urine Glucose (UA) Norm (Normal) 11/09/22 22:08 Urine Ketones Negative (Negative) 11/09/22 22:08 Urine Blood 2+ (Negative) H 11/09/22 22:08 Urine Nitrate Negative (Negative) 11/09/22 22:08 Urine Bilirubin Neg (Negative) 11/09/22 22:08 Urine Urobilinogen 1 mg/dL (Negative) H 11/09/22 22:08 Ur Leukocyte Esterase Negative (Negative) 11/09/22 22:08 Urine RBC 0-4 /hpf (0-2) H 11/09/22 22:08 Urine WBC None /hpf (0-5) 11/09/22 22:08 Ur Squamous Epith Cells 5-10 /hpf (0-5) H 11/09/22 22:08 Amorphous Sediment Not Reportable 11/09/22 22:08 Urine Bacteria 1+ /hpf (NONE) H 11/09/22 22:08 Urine Mucus 1+ /hpf 11/09/22 22:08 SARS-CoV-2 Ag (Rapid) negative (Negative) 11/09/22 23:25 Micro: Microbiology 11/09/22 19:33 Blood Culture - Preliminary Blood SPECIMEN COLLECTED 11/09/22 19:33 Blood Culture - Preliminary Blood SPECIMEN COLLECTED A&P Assessment and plan (1) Weakness: Presenting complaint along with generalized pain and malaise. Nonfocal. (2) COPD (chronic obstructive pulmonary disease): Acute on chronic exacerbation. Opacity noted on imaging that could be secondary to atelectasis, pneumonia or edema. (3) Hyponatremia: Acute on chronic. Is on chronic diuretic therapy in the form of Aldactone. (4) Moderate protein malnutrition: (5) Chronic lymphocytic leukemia of B-cell type not having achieved remission: (6) Hypertension: (7) Hyperlipidemia: (8) Hypothyroidism: (9) GERD (gastroesophageal reflux disease): Plan Inpatient admission We will continue Rocephin and azithromycin started in the emergency room Breathing treatments including inhaled steroids Oral prednisone Oxygen therapy, weaning back to baseline 2 L by nasal cannula as able Check procalcitonin and BNP level Follow-up pending blood cultures Check CK level Dietary evaluation Continue home spironolactone Continue statin therapy if CK okay Continue home levothyroxine Check TSH PPI Supportive care otherwise Plans were discussed with patient and she was given an opportunity to ask questions VTE prophylaxis: Lovenox GI Prophylaxis: PPI Telemetry: Not currently indicated Smith: Not currently indicated Line(s): Peripheral IVs Disposition plan: Anticipate discharge home with outpatient follow-up Code Status: Full code Attestations Medical Necessity Statement*: Anticipated stay greater than two midnights in this patient with comorbidities as described along with acute presentation with several ER visits recently without clinical improvement. She is currently requiring more than her baseline oxygen therapy, IV antibiotics, breathing treatments. Other work-up and plans as noted above. Diagnoses Weakness R53.1 COPD (chronic obstructive pulmonary disease) J44.9 Hyponatremia E87.1 Moderate protein malnutrition E44.0 Chronic lymphocytic leukemia of B-cell type not having achieved remission C91.10 Hypertension I10 Hyperlipidemia E78.5 Hypothyroidism E03.9 GERD (gastroesophageal reflux disease) K21.9
--- NOTE | 2022-11-10 01:03 | PC.NURSE ---
Addendum entered by Apurva Juarez RN 11/10/22 01:11: Verified medications via verbally with patient. Original Note: Patient states she knows most of the medications she takes, but does not know all of them and does not know the doses and frequencies. Patient states Bill will be here tomorrow and he will have them.
[2022-11-10] MEDS: enoxaparin 40 mg/0.4 mL Syringe SUBCUT (01:25)
[2022-11-10] MEDS: oxyCODONE 5 mg IR Tab/Cap PO ×3 (01:30→22:45)
[2022-11-10] MEDS: ipratropium-albuterol 3 mL Neb INHALATION ×4 (01:32→20:35)
--- NOTE | 2022-11-10 03:54 | USCV_ITS ---
Sue Delgado Age: 77 Gender: F : 1945 Exam Date: 11/10/2022 04:14 Ordering Phys: Ara Caldera MD Technologist: CT [place] [facility] [place]ication: cp BP: 119 / 66 HR: 83 Rhythm: Sinus Technical Quality: Adequate MEASUREMENTS (Male / Female) Normal Values 2D ECHO LV Chamber Size 4.3 cm RV Chamber Size 4.2 cm LVOT Diameter 2.1 cm LV Ejection Fraction MOD 2C 49.4 % LV Ejection Fraction 2C AL 50.5 % LA Diameter 3.8 cm LA Width 3.5 cm LA Height 4.3 cm RA Width 2.9 cm RA Height 3.8 cm Aorta at Sinotubular Diameter 2.9 cm M-MODE Aortic Annulus Diameter 3.6 cm LA Ao Ratio MM 1.0 MV E Point Septal Separation 1.1 cm DOPPLER AV Peak Velocity 121.0 cm/s LVOT Peak Velocity 109.0 cm/s AV Area Cont Eq vti 3.5 cm squared AV Area Cont Eq pk 3.0 cm squared MV Area PHT 3.7 cm squared Mitral E to A Ratio 0.8 MV E' Velocity 36.5 cm/s Mitral E to MV E' Ratio 8.2 Mitral E to LV E' Lateral Ratio 7.9 Mitral E to LV E' Septal Ratio 8.6 TR Peak Velocity 176.0 cm/s TR Peak Gradient 12.4 mmHg TV Peak E Velocity 73.0 cm/s Right Atrial Pressure 3.0 mmHg Pulmonary Artery Systolic Pressu 15.4 mmHg PV Peak Velocity 97.0 cm/s FINDINGS Left Ventricle Normal left ventricular size and systolic function, EF 53 % (visual). No regional wall motion abnormalities. Grade I/IV diastolic dysfunction (abnormal relaxation filling pattern), normal to mildly elevated filling pressures. Right Ventricle The right ventricle is normal in size and function. Right Atrium The right atrium is normal in size. Left Atrium The left atrium is normal in size. Mitral Valve Thickened mitral valve. Mild mitral annular calcification. Aortic Valve Trace to mild aortic valve regurgitation. Thickened aortic valve. Tricuspid Valve Trace to mild tricuspid valve regurgitation. Pulmonic Valve Pulmonic valve not well visualized. Pericardium No pericardial effusion. Aorta Normal aortic annulus size. IVC Inferior vena cava not visualized. CONCLUSIONS Normal left ventricular size and systolic function, EF 53 % (visual). No regional wall motion abnormalities. Grade I/IV diastolic dysfunction (abnormal relaxation filling pattern), normal to mildly elevated filling pressures. Thickened mitral valve. Mild mitral annular calcification. Trace to mild aortic valve regurgitation. Thickened aortic valve. Trace to mild tricuspid valve regurgitation. Estimated pulmonary artery peak systolic pressure within normal limits There is no pericardial effusion. Technically somewhat difficult study. No similar previous studies are available for comparison Dr Zuhair Pabon MD FACC (Electronically Signed) Final Date: 10 November 2022 20:41 S
[2022-11-10] MEDS: levothyroxine 150 mcg Tablet 75 MCG PO (05:04)
[2022-11-10 05:22] LABS: Basophils # 0.1 10^3/uL (0.0-0.1); Basophils % 0.3 %; Eosinophils % 0.1 %; Hematocrit 40.4 % (37.0-47.0); Hemoglobin 12.9 g/dL (11.5-15.3); Lymphocytes % 65.6 %; Mean Corpuscular HGB Conc 31.9 g/dL (30.0-36.0); Mean Corpuscular Hemoglobin 29.1 pg (28.0-34.0); Mean Corpuscular Volume 91.2 fl (81-99); Mean Platelet Volume 9.2 fL (7.4-10.4); Monocytes # 0.4 10^3/uL (0.2-0.9); Monocytes % 1.1 %; Neutrophils # 12.27 10^3/uL (1.8-7.7); Neutrophils % 32.1 %; Nucleated Red Blood Cells % 0 %; Platelet Count 244 10^3/cmm (130-400); Red Blood Count 4.43 10^6/uL (4.1-5.3); Red Cell Distribution Width 15.3 % (12.1-15.1)
--- NOTE | 2022-11-10 05:33 | PC.NURSE ---
Patient asking for something for pain at this time. PRN Oxy cannot be administered again until 0730. Dr. Caldera notified. No new orders received.
[2022-11-10 05:43] LABS: NT Pro B Type Natriuretic Pept 740 pg/mL (0-450); Procalcitonin 0.19 ng/mL (0-0.5)
[2022-11-10 05:47] LABS: Urine Creatinine 69 mg/dL (28-217); Urine Random Sodium 42 mmol/L
[2022-11-10 05:55] LABS: Alanine Aminotransferase 42 U/L (0-33); Albumin Level 2.3 g/dL (3.5-5.2); Alkaline Phosphatase 84 U/L (35-105); Blood Urea Nitrogen 11 mg/dL (8-23); Calcium 7.3 mg/dL (8.5-10.5); Carbon Dioxide 23 mmol/L (22-29); Chloride 98 mmol/L (98-107); Creatinine Clr Calc Pharmacy 65.3408; Glucose 154 mg/dL (65-115); Magnesium 1.9 mg/dL (1.7-2.3); Osmolality Calculated 274 mOsm/kg (285-295); Phosphorus 3.6 mg/dL (2.5-4.5); Slide Review Slide Review Perform; Sodium 131 mmol/L (136-145); Total Bilirubin 0.6 mg/dL (0.15-1.2); Total Protein 5.3 g/dL (6.6-8.7)
[2022-11-10 05:59] LABS: White Blood Count 38.2 10^3/uL (4.0-10.0)
[2022-11-10 06:02] LABS: Anion Gap 14.7 (5-19); Aspartate Amino Transferase 16 U/L (0-32); Potassium 4.7 mmol/L (3.5-5.1)
[2022-11-10] MEDS: budesonide 0.5 mg/2 mL Neb INHALATION ×2 (08:13→20:35)
[2022-11-10] MEDS: methylPREDNISolone sod succ 40 MG in water for injection-sterile 1 ML 12 MG IVP ×2 (08:21→15:51)
[2022-11-10] MEDS: docusate sodium 100 mg Capsule PO (08:23)
[2022-11-10] MEDS: pantoprazole DR 40 mg Tablet PO (08:23)
[2022-11-10 09:41] LABS: Creatine Phosphokinase 15 U/L (26-192)
[2022-11-10 13:42] LABS: C Reactive Protein 182.8 mg/L (0.0-4.9); Erythrocyte Sedimentation Rate 40 mm/hr (0-15)
[2022-11-10 13:43] LABS: Troponin(5th) Baseline 8 ng/L (0-10)
--- NOTE | 2022-11-10 13:44 | ECG_ITS ---
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 Measurements Intervals [place] Rate: 87 P: 73 [place]: 146 QRS: -10 QRSD: 90 T: 37 QT: 335 QTc: 403 Interpretive Statements SINUS RHYTHM LOW QRS VOLTAGE IN PRECORDIAL LEADS [QRS DEFLECTION < 1.0 mV IN CHEST LEADS] POSSIBLE ANTERIOR MYOCARDIAL INFARCTION , PROBABLY OLD [30 ms Q WAVE IN V3/V4, OR R < 0.2 mV IN V4] Compared to ECG 11/09/2022 18:38:50 Sinus tachycardia no longer present Myocardial infarct finding still present Electronically Signed On 11-11-2022 19:57:27 CDT by Zuhair Pabon M.D. [id number]
[2022-11-10 15:05] LABS: Adenovirus Not Detected (NOT DETECT); Chlamydia Pneumoniae Not Detected (NOT DETECT); Coronavirus 229E,HKU1,NL63,OC4 Not Detected (NOT DETECT); Human Metapneumovirus Not Detected (NOT DETECT); Human Rhinovirus/Enterovirus Not Detected (NOT DETECT); Influenza A Not Detected (NOT DETECT); Influenza A H1 Not Detected (NOT DETECT); Influenza A H1-2009 Not Detected (NOT DETECT); Influenza A H3 Not Detected (NOT DETECT); Influenza B Not Detected (NOT DETECT); Mycoplasma Pneumoniae Not Detected (NOT DETECT); Parainfluenza Virus Type 1 Not Detected (NOT DETECT); Parainfluenza Virus Type 2 Not Detected (NOT DETECT); Parainfluenza Virus Type 3 Not Detected (NOT DETECT); Parainfluenza Virus Type 4 Not Detected (NOT DETECT); Respiratory Syncytial Virus A Not Detected (NOT DETECT); Respiratory Syncytial Virus B Not Detected (NOT DETECT); SARS-COV-2 Not Detected (NOT DETECT)
--- NOTE | 2022-11-10 15:35 | PM.PN ---
Subjective Subjective: Patient was seen this morning, she tells me that she hurts all over her joints hurt her, her head hurts her, she feels fevers, she has chills, she has cough, she is a poor appetite, no nausea, vomiting, abdominal pain, she feels short of breath, she has a history of COPD, history of smoking, currently on 3 L, denies any recent travel, no occupational exposures, exposures to large groups, [facility]/I&O/Wt Last Vital Signs Temp 99.1 F 11/10/22 11:46 Pulse 83 11/10/22 15:09 Resp 18 11/10/22 15:09 BP 119/71 11/10/22 11:46 Pulse Ox 93 11/10/22 15:09 O2 Del Method Nasal Cannula 11/10/22 15:09 O2 Flow Rate 3 11/10/22 15:09 11/10/22 11/10/22 11/10/22 06:59 14:59 22:59 Intake Total 1300 / 1300 601 / 601 Output Total 300 / 300 Balance 1000 / 1000 601 / 601 Weight last 48 hrs Weight 77.111 kg Physical Exam Const: COMMON NORMALS: no acute distress and patient oriented x3 Resp: COMMON NORMALS: normal respiratory effort, No retractions and No use of accessory muscles AUSCULTATION: crackles and wheezes Cardio: COMMON NORMALS: regular rate, regular rhythm, S1 normal heart sound present and S2 normal heart sound present RATE: regular rate RHYTHM: regular rhythm HEART SOUNDS: S1 normal heart sound present and S2 normal heart sound present GI: COMMON NORMALS: Normal to inspection, nondistended, normoactive bowel sounds present and non-tender Extremity: COMMON NORMALS: no pedal edema Neuro: COMMON NORMALS: patient oriented x3 Psych: COMMON NORMALS: mental status grossly normal Data 11/10/22 05:09 11/10/22 05:09 Micro: Microbiology 11/09/22 19:33 Blood Culture - Preliminary Blood SPECIMEN COLLECTED 11/09/22 19:33 Blood Culture - Preliminary Blood SPECIMEN COLLECTED A&P Assessment and plan (1) Weakness: Presenting complaint along with generalized pain and malaise. Nonfocal. (2) COPD (chronic obstructive pulmonary disease): Acute on chronic exacerbation. Opacity noted on imaging that could be secondary to atelectasis, pneumonia or edema. (3) Hyponatremia: Acute on chronic. Is on chronic diuretic therapy in the form of Aldactone. (4) Moderate protein malnutrition: (5) Chronic lymphocytic leukemia of B-cell type not having achieved remission: (6) Hypertension: (7) Hyperlipidemia: (8) Hypothyroidism: (9) GERD (gastroesophageal reflux disease): (10) Pneumonia: Continue Rocephin, azithromycin Solu-Medrol 40 IV every 8 hours Continue DuoNeb, budesonide Sputum cultures, blood cultures, respiratory viral panel CRP (11) COPD exacerbation: Plan Chronic lymphocytic leukemia, chronically leukocytosis Hyponatremia, insensible water losses, monitor Dietary evaluation Continue home spironolactone Continue statin therapy if CK okay Continue home levothyroxine Check TSH PPI Supportive care otherwise Plans were discussed with patient and she was given an opportunity to ask questions VTE prophylaxis: Lovenox GI Prophylaxis: PPI Telemetry: Not currently indicated Smith: Not currently indicated Line(s): Peripheral IVs Disposition plan: Anticipate discharge home with outpatient follow-up Code Status: Full code Attestations Medical Necessity Statement*: Patient requires hospitalization for pneumonia, requiring IV antibiotics, steroid therapy Diagnoses Weakness R53.1 COPD (chronic obstructive pulmonary disease) J44.9 Hyponatremia E87.1 Moderate protein malnutrition E44.0 Chronic lymphocytic leukemia of B-cell type not having achieved remission C91.10 Hypertension I10 Hyperlipidemia E78.5 Hypothyroidism E03.9 GERD (gastroesophageal reflux disease) K21.9 Pneumonia J18.9 COPD exacerbation J44.1
--- NOTE | 2022-11-10 15:46 | ECG_ITS ---
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 Measurements Intervals [place] Rate: 79 P: 79 AL: 146 QRS: -5 QRSD: 94 T: 37 QT: 347 QTc: 399 Interpretive Statements SINUS RHYTHM LOW QRS VOLTAGE IN PRECORDIAL LEADS [QRS DEFLECTION < 1.0 mV IN CHEST LEADS] Compared to ECG 11/10/2022 13:44:02 Myocardial infarct finding no longer present Electronically Signed On 11-11-2022 20:14:22 CDT by Zuhair Pabon M.D. [id number]
[2022-11-10 16:46] LABS: Troponin 5 2HR 7.44 ng/L (0-10); Troponin 5 2HR Delta -0.56 ABS# (0-10)
[2022-11-10] MEDS: atorvastatin 40 mg Tablet 20 MG PO (17:46)
--- NOTE | 2022-11-10 18:17 | ECG_ITS ---
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 Measurements Intervals [place] Rate: 84 P: 57 MT: 153 QRS: -18 QRSD: 104 T: 35 QT: 341 QTc: 404 Interpretive Statements SINUS RHYTHM LOW QRS VOLTAGE IN PRECORDIAL LEADS [QRS DEFLECTION < 1.0 mV IN CHEST LEADS] PATTERN CONSISTENT WITH PULMONARY DISEASE MINIMAL VOLTAGE CRITERIA FOR LVH, CONSIDER NORMAL VARIANT [MEETS CRITERIA IN ONE OF: R(aVL), S(V1), R(V5), R(V5/V6)+S(V1)] Compared to ECG 11/10/2022 15:46:54 No significant changes Electronically Signed On 11-11-2022 20:31:06 CDT by Zuhair Pabon M.D. [id number]
[2022-11-10] MEDS: cefTRIAXone 1,000 MG in sodium chloride 0.9% (plus) 50 ML 100 MG IV (20:27)
[2022-11-11] VITALS (13 sets, daily range): BP systolic 94–156; BP diastolic 54–90; PULSE 68–110; RESP 16–18; TEMP 36.3–37; O2SAT 92–99
[2022-11-11] MEDS: methylPREDNISolone sod succ 40 MG in water for injection-sterile 1 ML 12 MG IVP ×2 (01:22→09:41)
[2022-11-11] MEDS: enoxaparin 40 mg/0.4 mL Syringe SUBCUT (01:22)
[2022-11-11] MEDS: ipratropium-albuterol 3 mL Neb INHALATION ×4 (02:38→19:46)
[2022-11-11] MEDS: ALPRAZolam 0.5 mg Tablet 0.25 MG PO ×2 (03:55→23:59)
[2022-11-11 05:33] LABS: Basophils # 0.1 10^3/uL (0.0-0.1); Basophils % 0.2 %; Hematocrit 34.5 % (36-47); Lymphocytes # 26.2 10^3/uL (0.8-4.8); Lymphocytes % 72.7 %; Mean Corpuscular HGB Conc 32.2 g/dL (30-55); Mean Corpuscular Hemoglobin 29.1 pg (27-33); Mean Corpuscular Volume 90.3 fl (85-98); Mean Platelet Volume 9.7 fL (7.4-10.4); Monocytes # 0.3 10^3/uL (0.2-0.9); Monocytes % 0.9 %; Neutrophils # 9.22 10^3/uL (1.8-7.7); Neutrophils % 25.6 %; Nucleated Red Blood Cells % 0 %; Platelet Count 244 10^3/cmm (157-399); Red Blood Count 3.82 10^6/uL (3.85-5.65); Red Cell Distribution Width 14.6 % (12.1-15.1)
[2022-11-11 06:07] LABS: Alanine Aminotransferase 45 U/L (0-33); Albumin Level 2.2 g/dL (3.5-5.2); Alkaline Phosphatase 92 U/L (35-105); Aspartate Amino Transferase 22 U/L (0-32); Blood Urea Nitrogen 14 mg/dL (8-23); Calcium 7.5 mg/dL (8.5-10.5); Carbon Dioxide 25 mmol/L (22-29); Chloride 97 mmol/L (98-107); Creatinine Clr Calc Pharmacy 65.3408; Globulin 3.1 g/dL (1.3-4.6); Glucose 324 mg/dL (65-115); Osmolality Calculated 281 mOsm/kg (285-295); Sodium 129 mmol/L (136-145); Total Bilirubin 0.4 mg/dL (0.15-1.2); Total Protein 5.3 g/dL (6.6-8.7)
[2022-11-11] MEDS: levothyroxine 150 mcg Tablet 75 MCG PO (06:10)
[2022-11-11] MEDS: spironolactone 25 mg Tablet PO (06:11)
[2022-11-11 06:12] LABS: C Reactive Protein 156.2 mg/L (0.0-4.9); Thyroid Stimulating Hormone 0.27 uIU/mL (0.27-4.20)
[2022-11-11 06:19] LABS: Anion Gap 11.8 (5-19); Potassium 4.8 mmol/L (3.5-5.1)
[2022-11-11 06:20] LABS: Slide Review Slide Review Perform
[2022-11-11 06:21] LABS: White Blood Count 36.02 10^3/uL (3.29-11.43)
[2022-11-11] MEDS: budesonide 0.5 mg/2 mL Neb INHALATION ×2 (07:29→19:46)
[2022-11-11] MEDS: pantoprazole DR 40 mg Tablet PO (09:42)
[2022-11-11] MEDS: docusate sodium 100 mg Capsule PO (09:42)
[2022-11-11 10:39] LABS: Estmated Average Glucose 143; Hemoglobin A1C 6.6 % (4.0-6.0)
[2022-11-11 11:25] LABS: Glucose Point of Care 460 mg/dL (70-110)
[2022-11-11] MEDS: insulin lispro 100 unit/1 mL SUBCUT ×2 (13:50→17:48)
[2022-11-11 17:26] LABS: Glucose Point of Care 415 mg/dL (70-110)
[2022-11-11] MEDS: atorvastatin 40 mg Tablet 20 MG PO (17:49)
--- NOTE | 2022-11-11 18:01 | P.PN_ITS ---
Subjective Subjective: Patient was examined multiple times throughout the morning, early in the morning she was seen, she tells me she continues to feel weak fatigued and tired, she feels short of breath with exertion, no pain, no chills, does have a cough, I was notified by nursing staff that patient's blood sugars were over 400, and she declines any insulin I reexamined patient, discussed her elevated A1c at 6.7, her elevated sugars likely due to infection and steroids, she needs to have insulin as she has a hi gh risk of HHS, worsening infection, after discussing the risk and benefits of insulin therapy, she agreed to proceed, cut down her steroids to 40 mg once daily starting tomorrow, she is agreeable, I also spoke to patient's at bedside, in detail about her hospitalization, her pneumonia, he voiced understanding, all questions answered, Vitals/I&O/Wt Last Vital Signs Temp 98.2 F 11/11/22 16:00 Pulse 99 11/11/22 16:00 Resp 18 11/11/22 16:00 BP 156/90 11/11/22 16:00 Pulse Ox 97 11/11/22 16:00 O2 Del Method Room Air 11/11/22 16:00 O2 Flow Rate 3 11/11/22 13:41 11/11/22 11/11/22 11/11/22 06:59 14:59 22:59 Intake Total 401 / 1053 841 / 841 480 / 1321 Balance 401 / 1053 841 / 841 480 / 1321 Weight last 48 hrs Weight 77.111 kg Physical Exam Const: COMMON NORMALS: no acute distress and patient oriented x3 Resp: COMMON NORMALS: normal respiratory effort, No retractions and No use of accessory muscles AUSCULTATION: wheezes Cardio: COMMON NORMALS: regular rate, regular rhythm, S1 normal heart sound present and S2 normal heart sound present RATE: regular rate RHYTHM: regular rhythm HEART SOUNDS: S1 normal heart sound present and S2 normal heart sound present GI: COMMON NORMALS: Normal to inspection, nondistended, normoactive bowel sounds present and non-tender Extremity: COMMON NORMALS: no pedal edema Neuro: COMMON NORMALS: patient oriented x3 Psych: COMMON NORMALS: mental status grossly normal Data 11/11/22 04:18 11/11/22 04:18 Micro: Microbiology 11/09/22 19:33 Blood Culture - Preliminary Blood NEGATIVE TO DATE 11/09/22 19:33 Blood Culture - Preliminary Blood NEGATIVE TO DATE A&P Assessment and plan (1) Weakness: Presenting complaint along with generalized pain and malaise, likely secondary pneumonia, nonfocal, PT OT, patient will like a walker, will have case management work on this (2) COPD (chronic obstructive pulmonary disease): Acute on chronic exacerbation. Opacity noted on imaging that could be secondary to atelectasis, pneumonia or edema., Prednisone decreased to 40 mg once daily (3) Hyponatremia: Acute on chronic. Is on chronic diuretic therapy in the form of Aldactone. (4) Moderate protein malnutrition: (5) Chronic lymphocytic leukemia of B-cell type not having achieved remission: (6) Hypertension: (7) Hyperlipidemia: (8) Hypothyroidism: (9) GERD (gastroesophageal reflux disease): (10) Pneumonia: Continue Rocephin, azithromycin Prednisone 40 mg once daily Continue DuoNeb, budesonide Sputum cultures, blood cultures, respiratory viral panel CRP (11) COPD exacerbation: Plan Chronic lymphocytic leukemia, chronically leukocytosis Hyponatremia, insensible water losses, monitor Type 2 diabetes mellitus with hyperglycemia, Lantus 5 units subcu 24 hours, low- dose sliding scale Dietary evaluation Continue home spironolactone Continue statin therapy if CK okay Continue home levothyroxine PPI Supportive care otherwise Plans were discussed with patient and she was given an opportunity to ask questions VTE prophylaxis: Lovenox GI Prophylaxis: PPI Telemetry: Not currently indicated Smith: Not currently indicated Line(s): Peripheral IVs Disposition plan: Anticipate discharge home with outpatient follow-up Code Status: Full code Plan for today blood sugar control, low-dose sliding scale, Lantus 5 units, up out of bed, PT OT, will work on getting her walker, de-escalate prednisone, continue antibiotics, she does have hyponatremia likely sec to hyper glycemia Attestations Medical Necessity Statement*: Patient requires hospitalization for pneumonia, with hyperglycemia, Diagnoses Weakness R53.1 COPD (chronic obstructive pulmonary disease) J44.9 Hyponatremia E87.1 Moderate protein malnutrition E44.0 Chronic lymphocytic leukemia of B-cell type not having achieved remission C91.1 0 Hypertension I10 Hyperlipidemia E78.5 Hypothyroidism E03.9 GERD (gastroesophageal reflux disease) K21.9 Pneumonia J18.9 COPD exacerbation J44.1
[2022-11-11] MEDS: insulin glargine 100 units/1 mL 5 UNIT SUBCUT (18:44)
[2022-11-11] MEDS: cefTRIAXone 1,000 MG in sodium chloride 0.9% (plus) 50 ML 100 MG IV (20:23)
[2022-11-11] MEDS: oxyCODONE 5 mg IR Tab/Cap PO (20:26)
[2022-11-11] MEDS: cyclobenzaprine 10 mg Tablet PO (20:37)
[2022-11-11 20:59] LABS: Glucose Point of Care 361 mg/dL (70-110)
[2022-11-11] MEDS: azithromycin 500 MG in sodium chloride 0.9% 250 ML 250 MG IV (23:59)
[2022-11-12] VITALS (15 sets, daily range): BP systolic 113–152; BP diastolic 63–80; PULSE 76–109; RESP 15–22; TEMP 36.3–37; O2SAT 89–96
[2022-11-12] MEDS: enoxaparin 40 mg/0.4 mL Syringe SUBCUT (00:01)
[2022-11-12] MEDS: ipratropium-albuterol 3 mL Neb INHALATION ×4 (02:04→20:29)
[2022-11-12 05:46] LABS: Basophils # 0.1 10^3/uL (0.0-0.1); Basophils % 0.2 %; Hematocrit 36.9 % (36-47); Lymphocytes # 30.2 10^3/uL (0.8-4.8); Lymphocytes % 66.3 %; Mean Corpuscular HGB Conc 31.7 g/dL (30-55); Mean Corpuscular Hemoglobin 28.7 pg (27-33); Mean Corpuscular Volume 90.7 fl (85-98); Mean Platelet Volume 9.8 fL (7.4-10.4); Monocytes # 0.6 10^3/uL (0.2-0.9); Monocytes % 1.4 %; Neutrophils % 31.4 %; Nucleated Red Blood Cells % 0 %; Platelet Count 312 10^3/cmm (157-399); Red Blood Count 4.07 10^6/uL (3.85-5.65); Red Cell Distribution Width 14.5 % (12.1-15.1)
[2022-11-12 06:11] LABS: Phosphorus 2.6 mg/dL (2.5-4.5)
[2022-11-12] MEDS: levothyroxine 150 mcg Tablet 75 MCG PO (06:13)
[2022-11-12] MEDS: spironolactone 25 mg Tablet PO (06:13)
[2022-11-12 06:15] LABS: Anion Gap 11.8 (5-19); Blood Urea Nitrogen 15 mg/dL (8-23); Calcium 7.7 mg/dL (8.5-10.5); Carbon Dioxide 28 mmol/L (22-29); Chloride 95 mmol/L (98-107); Creatinine Clr Calc Pharmacy 65.3408; Glucose 276 mg/dL (65-115); Osmolality Calculated 281 mOsm/kg (285-295); Potassium 4.8 mmol/L (3.5-5.1); Sodium 130 mmol/L (136-145)
[2022-11-12 06:25] LABS: Slide Review Slide Review Perform; White Blood Count 45.53 10^3/uL (3.29-11.43)
[2022-11-12 06:38] LABS: Glucose Point of Care 252 mg/dL (70-110)
[2022-11-12] MEDS: insulin lispro 100 unit/1 mL SUBCUT ×3 (08:10→17:38)
[2022-11-12] MEDS: predniSONE 20 mg Tablet 40 MG PO (08:11)
[2022-11-12] MEDS: pantoprazole DR 40 mg Tablet PO (08:11)
[2022-11-12] MEDS: budesonide 0.5 mg/2 mL Neb INHALATION ×2 (08:45→20:29)
[2022-11-12] MEDS: oxyCODONE 5 mg IR Tab/Cap PO (11:19)
[2022-11-12] MEDS: cyclobenzaprine 10 mg Tablet PO (11:19)
[2022-11-12 11:24] LABS: Glucose Point of Care 250 mg/dL (70-110)
[2022-11-12 16:46] LABS: Glucose Point of Care 336 mg/dL (70-110)
--- NOTE | 2022-11-12 16:50 | P.PN_ITS ---
Subjective Subjective: Patient is currently on room air. Feels well overall. Discussed with her possible discharge to home, however patient states she has limitations with her ride today and will not be able to return home. She is very concerned about the new diagnosis of diabetes. Discussed with her the need to start oral hypoglycemic agents, however patient is currently not willing to do so wishes to address this by lifestyle modification over the next 3 months and if no improvement then would like to start her medications after discussion with primary care provider. Medications: Reviewed: Yes Vitals/I&O/Wt Last Vital Signs Temp 98.2 F 11/12/22 11:55 Pulse 92 11/12/22 14:14 Resp 18 11/12/22 14:00 BP 152/76 11/12/22 11:55 Pulse Ox 92 11/12/22 14:00 O2 Del Method Room Air 11/12/22 14:00 0 11/12/22 11/12/22 11/12/22 06:59 14:59 22:59 Intake Total 250 / 1621 600 / 600 Balance 250 / 1621 600 / 600 Physical Exam Narrative: General: No acute distress, AO x3 HEENT: PERRLA, pupils bilaterally equal and reactive, pallors not present Chest: Normal vesicular breath sounds, no added sounds, equal good air entry bilaterally CVS: S1-S2 regular, no murmurs, no tachycardia, no gallops, no rubs Abdomen: Soft, nontender, no organomegaly, bowel sounds present . Data 11/12/22 05:10 11/12/22 05:10 A&P Assessment and plan (1) Weakness: Presenting complaint along with generalized pain and malaise, likely secondary pneumonia, nonfocal, PT OT, patient will like a walker, will have case management work on this (2) COPD (chronic obstructive pulmonary disease): Acute on chronic exacerbation. Opacity noted on imaging that could be secondary to atelectasis, pneumonia or edema., Prednisone decreased to 20 mg once daily. (3) Hyponatremia: Acute on chronic. Is on chronic diuretic therapy in the form of Aldactone. (4) Moderate protein malnutrition: (5) Chronic lymphocytic leukemia of B-cell type not having achieved remission: (6) Hypertension: (7) Hyperlipidemia: (8) Hypothyroidism: (9) GERD (gastroesophageal reflux disease): (10) Pneumonia: Continue Rocephin, d/c azithromycin as completed 4 days Prednisone 20 mg once daily Continue DuoNeb, budesonide Sputum cultures N/A at this time, blood cultures, respiratory viral panel negative thus far (11) COPD exacerbation: Plan Chronic lymphocytic leukemia, chronically leukocytosis Hyponatremia, insensible water losses, improving Type 2 diabetes mellitus with hyperglycemia, Lantus 5 units subcu 24 hours, low- dose sliding scale Does ot wish to start treatment as outpatient Continue home spironolactone Continue statin therapy if CK okay Continue home levothyroxine PPI Supportive care otherwise Plans were discussed with patient and she was given an opportunity to ask questions VTE prophylaxis: Lovenox GI Prophylaxis: PPI Telemetry: Not currently indicated Smith: Not currently indicated Line(s): Peripheral IVs Disposition plan: Anticipate discharge home with outpatient follow-up Code Status: Full code Attestations Medical Necessity Statement*: ready for discharge with transition to po abx, however states unable to go home today due to problem with ride Coding Level of Care Code Acute Code for Chg Fwd Diagnoses Weakness R53.1 COPD (chronic obstructive pulmonary disease) J44.9 Hyponatremia E87.1 Moderate protein malnutrition E44.0 Chronic lymphocytic leukemia of B-cell type not having achieved remission C91.10 Hypertension I10 Hyperlipidemia E78.5 Hypothyroidism E03.9 GERD (gastroesophageal reflux disease) K21.9 Pneumonia J18.9 COPD exacerbation J44.1
[2022-11-12] MEDS: atorvastatin 40 mg Tablet 20 MG PO (17:37)
[2022-11-12] MEDS: cefTRIAXone 1,000 MG in sodium chloride 0.9% (plus) 50 ML 100 MG IV (19:33)
[2022-11-12 20:53] LABS: Glucose Point of Care 292 mg/dL (70-110)
[2022-11-13] VITALS (7 sets, daily range): BP systolic 134–146; BP diastolic 61–79; PULSE 77–104; RESP 16–18; TEMP 35.9–36.7; O2SAT 90–97
[2022-11-13] MEDS: enoxaparin 40 mg/0.4 mL Syringe SUBCUT (00:51)
[2022-11-13 04:48] LABS: Basophils # 0.1 10^3/uL (0.0-0.1); Basophils % 0.2 %; Lymphocytes % 74.8 %; Mean Corpuscular HGB Conc 31.8 g/dL (30-55); Mean Corpuscular Hemoglobin 29.1 pg (27-33); Mean Corpuscular Volume 91.3 fl (85-98); Mean Platelet Volume 9.1 fL (7.4-10.4); Monocytes # 0.6 10^3/uL (0.2-0.9); Monocytes % 1.6 %; Neutrophils # 9.22 10^3/uL (1.8-7.7); Neutrophils % 22.9 %; Nucleated Red Blood Cells % 0 %; Platelet Count 282 10^3/cmm (157-399); Red Blood Count 4.16 10^6/uL (3.85-5.65); Red Cell Distribution Width 14.5 % (12.1-15.1)
[2022-11-13 05:10] LABS: Anion Gap 12.8 (5-19); Blood Urea Nitrogen 18 mg/dL (8-23); Calcium 8.1 mg/dL (8.5-10.5); Carbon Dioxide 29 mmol/L (22-29); Chloride 98 mmol/L (98-107); Creatinine Clr Calc Pharmacy 65.3408; Glucose 237 mg/dL (65-115); Magnesium 1.9 mg/dL (1.7-2.3); Osmolality Calculated 290 mOsm/kg (285-295); Phosphorus 2.9 mg/dL (2.5-4.5); Potassium 4.8 mmol/L (3.5-5.1); Sodium 135 mmol/L (136-145)
[2022-11-13 05:15] LABS: Slide Review Slide Review Perform; White Blood Count 40.18 10^3/uL (3.29-11.43)
[2022-11-13] MEDS: cyclobenzaprine 10 mg Tablet PO (06:10)
[2022-11-13] MEDS: spironolactone 25 mg Tablet PO (06:10)
[2022-11-13] MEDS: levothyroxine 150 mcg Tablet 75 MCG PO (06:10)
[2022-11-13] MEDS: oxyCODONE 5 mg IR Tab/Cap PO ×2 (06:11→12:30)
[2022-11-13 06:29] LABS: Glucose Point of Care 199 mg/dL (70-110)
--- NOTE | 2022-11-13 09:20 | PC.SOCIAL ---
IMM Update Pg. 2 of IMM updated and reviewed with patient who verbalized understanding. Copy provided to patient and copy placed in chart.
[2022-11-13] MEDS: insulin lispro 100 unit/1 mL SUBCUT (09:34)
[2022-11-13] MEDS: pantoprazole DR 40 mg Tablet PO (09:35)
[2022-11-13] MEDS: predniSONE 20 mg Tablet PO (09:35)
[2022-11-13] MEDS: budesonide 0.5 mg/2 mL Neb INHALATION (09:38)
[2022-11-13] MEDS: ipratropium-albuterol 3 mL Neb INHALATION (09:38)
[2022-11-13 11:45] LABS: Glucose Point of Care 213 mg/dL (70-110)
--- NOTE | 2022-11-14 16:15 | PM.DCS ---
Discharge Providers Date of Admission: 11/10/22 00:17 Date of Discharge: November 14, 2022 Attending Provider at Admission: Ara Caldera MD Attending Provider at Discharge: Micah Whyte DO Primary Care Provider: REYNA Patel Diagnoses at Discharge Discharge Diagnosis (1) Weakness: Status: Acute (2) COPD (chronic obstructive pulmonary disease): Status: Chronic (3) Hyponatremia: Status: Acute (4) Moderate protein malnutrition: Status: Acute (5) Chronic lymphocytic leukemia of B-cell type not having achieved remission: Status: Chronic (6) Hypertension: Status: Chronic (7) Hyperlipidemia: Status: Chronic (8) Hypothyroidism: Status: Chronic (9) GERD (gastroesophageal reflux disease): Status: Chronic (10) Pneumonia: Status: Acute (11) COPD exacerbation: Status: Acute Reason for Visit Reason for Visit: weakness Hospital Course Hospital Course Sue Delgado is a 77 year old female who presented to the emergency room via EMS because she had not been feeling well for several days.? She has a history of COPD, Romario had not really had any states that she has had pain throughout her body. She had recently been seen in the emergency room, and started on antibiotics and steroids. She believes that the steroids made her symptoms worse. Work-up in the emergency room showed opacity in the right lower lobe suggesting pneumonia.? Lactate level was normal.? She was given some IV fluids and antibiotics and request was made for admission She was treated with IV V Rocephin and azithromycin. In addition she was started on steroids. Sputum, blood cultures and respiratory panel were all drawn and negative at time of discharge. She improved with antibiotic therapy. She did have 1 episode of hyperglycemia, and the steroids were stopped. Discussion was held regarding treatment of her diabetes, but she deferred treatment until she had a chance to visit with her PCP, and she wished to treat this with diet alone. Her oxygen requirement resolved at the time of discharge, and patient stated that she was feeling back to her baseline. She was discharged in stable and improved condition. Physical Exam Narrative: General: Cooperative patient in no apparent distress. Well developed. HEENT: Normocephalic, Atraumatic. External ears normal. Nasal passages patent without drainage. MMM. Heart: RRR. Resp: LCTA. No respiratory distress, no use of accessory muscles. Abd: Soft, non-tender. Non-distended. Extremities: No edema. Skin: No rash or lesions on exposed areas. Discharge Data Studies Completed and Pending Completed Studies During Hospitalization Category Date Time Status XR chest 1V portable [id number] Stat Exams 11/09/22 19:07 Completed CV. echo complete* [id number] Routine Ultrasound 11/10/22 03:54 Completed Pending at discharge Category Date Time Status Blood Culture Stat Lab 11/09/22 19:33 Results Radiology Impressions Chest X-Ray 11/09/22 19:07 IMPRESSION: Strandy opacity at the left lung base may reflect atelectasis, aspiration, or developing pneumonia. Exam is otherwise normal for age. Laboratory Results WBC 40.18 10^3/uL (3.29-11.43) H* 11/13/22 04:24 RBC 4.16 10^6/uL (3.85-5.65) 11/13/22 04:24 Hgb 12.10 g/dL (11.27-16.99) 11/13/22 04:24 Hct 38.0 % (36-47) 11/13/22 04:24 MCV 91.3 fl (85-98) 11/13/22 04:24 MCH 29.1 pg (27-33) 11/13/22 04:24 MCHC 31.8 g/dL (30-55) 11/13/22 04:24 RDW 14.5 % (12.1-15.1) 11/13/22 04:24 Plt Count 282 10^3/cmm (157-399) 11/13/22 04:24 MPV 9.1 fL (7.4-10.4) 11/13/22 04:24 Neut % (Auto) 22.9 % 11/13/22 04:24 Lymph % (Auto) 74.8 % 11/13/22 04:24 [place] % (Auto) 1.6 % 11/13/22 04:24 Eos % (Auto) 0.0 % 11/13/22 04:24 Baso % (Auto) 0.2 % 11/13/22 04:24 Neut # (Auto) 9.22 10^3/uL (1.8-7.7) H 11/13/22 04:24 Lymph # (Auto) 30.0 10^3/uL (0.8-4.8) H 11/13/22 04:24 [place] # (Auto) 0.6 10^3/uL (0.2-0.9) 11/13/22 04:24 Eos # (Auto) 0.0 10^3/uL (0.0-0.8) 11/13/22 04:24 Baso # (Auto) 0.1 10^3/uL (0.0-0.1) 11/13/22 04:24 Nucleated RBC % (auto) 0 % 11/13/22 04:24 Nucleated RBCs # 0.0 /100WBC 11/13/22 04:24 ESR 40 mm/hr (0-15) H 11/10/22 05:09 Sodium 135 mmol/L (136-145) L 11/13/22 04:24 Potassium 4.8 mmol/L (3.5-5.1) 11/13/22 04:24 Chloride 98 mmol/L (98-107) 11/13/22 04:24 Carbon Dioxide 29 mmol/L (22-29) 11/13/22 04:24 Anion Gap 12.8 (5-19) 11/13/22 04:24 BUN 18 mg/dL (8-23) 11/13/22 04:24 Creatinine 0.6 mg/dL (0.5-0.9) 11/13/22 04:24 GFR Calculation Not Reportable 11/13/22 04:24 Glucose 237 mg/dL (65-115) H 11/13/22 04:24 POC Glucose 213 mg/dL (70-110) H 11/13/22 11:07 Estimat Average Glucose 143 11/11/22 04:18 Hemoglobin A1c 6.6 % (4.0-6.0) H 11/11/22 04:18 Calculated Osmolality 290 mOsm/kg (285-295) 11/13/22 04:24 Lactic Acid 1.2 mmol/L (0.5-2.2) 11/09/22 19:33 Uric Acid 3.0 mg/dL (2.4-5.7) 11/10/22 05:09 Calcium 8.1 mg/dL (8.5-10.5) L 11/13/22 04:24 Phosphorus 2.9 mg/dL (2.5-4.5) 11/13/22 04:24 Magnesium 1.9 mg/dL (1.7-2.3) 11/13/22 04:24 Total Bilirubin 0.4 mg/dL (0.15-1.2) 11/11/22 04:18 AST 22 U/L (0-32) 11/11/22 04:18 ALT 45 U/L (0-33) H 11/11/22 04:18 Alkaline Phosphatase 92 U/L (35-105) 11/11/22 04:18 Creatine Kinase 15 U/L (26-192) L 11/10/22 05:09 Troponin T Baseline 8 ng/L (0-10) 11/10/22 13:10 Troponin T 120 Minute 7.44 ng/L (0-10) 11/10/22 15:28 Delta Troponin T -0.56 ABS# (0-10) L 11/10/22 15:28 Troponin T Hi Sens 6Hr 7.90 ng/L (0-10) 11/10/22 19:17 Troponin T Hi Sens 6Hr Delta -0.10 ng/L (0-12) L 11/10/22 19:17 C-Reactive Protein 156.2 mg/L (0.0-4.9) H 11/11/22 04:18 NT-Pro-B Natriuret Pep 740 pg/mL (0-450) H 11/10/22 05:09 Total Protein 5.3 g/dL (6.6-8.7) L 11/11/22 04:18 Albumin 2.2 g/dL (3.5-5.2) L 11/11/22 04:18 Globulin 3.1 g/dL (1.3-4.6) 11/11/22 04:18 Procalcitonin 0.19 ng/mL (0-0.5) 11/10/22 05:09 TSH 0.27 uIU/mL (0.27-4.20) 11/11/22 04:18 Urine Color Yellow (Yellow) 11/09/22 22:08 Urine Appearance Clear (CLEAR) 11/09/22 22:08 Urine pH 5 (5-7) 11/09/22 22:08 Ur Specific [place] 1.020 (1.005-1.030) 11/09/22 22:08 Urine Protein Trace (Negative) 11/09/22 22:08 Urine Glucose (UA) Norm (Normal) 11/09/22 22:08 Urine Ketones Negative (Negative) 11/09/22 22:08 Urine Blood 2+ (Negative) H 11/09/22 22:08 Urine Nitrate Negative (Negative) 11/09/22 22:08 Urine Bilirubin Neg (Negative) 11/09/22 22:08 Urine Urobilinogen 1 mg/dL (Negative) H 11/09/22 22:08 Ur Leukocyte Esterase Negative (Negative) 11/09/22 22:08 Urine RBC 0-4 /hpf (0-2) H 11/09/22 22:08 Urine WBC None /hpf (0-5) 11/09/22 22:08 Ur Squamous Epith Cells 5-10 /hpf (0-5) H 11/09/22 22:08 Amorphous Sediment Not Reportable 11/09/22 22:08 Urine Bacteria 1+ /hpf (NONE) H 11/09/22 22:08 Urine Mucus 1+ /hpf 11/09/22 22:08 Ur Random Sodium 42 mmol/L 11/10/22 05:00 Urine Creatinine 69 mg/dL (28-217) 11/10/22 05:00 Nasal Influ A H1 2009 PCR Not detected (NOT DETECT) 11/10/22 13:11 Adenovirus (PCR) Not detected (NOT DETECT) 11/10/22 13:11 C. pneumoniae DNA (PCR) Not detected (NOT DETECT) 11/10/22 13:11 Coronavirus 229E (PCR) Not detected (NOT DETECT) 11/10/22 13:11 Human Metapneumovir PCR Not detected (NOT DETECT) 11/10/22 13:11 Influenza A (H1) PCR Not detected (NOT DETECT) 11/10/22 13:11 Influenza A (H3) PCR Not detected (NOT DETECT) 11/10/22 13:11 Influenza Type A (PCR) Not detected (NOT DETECT) 11/10/22 13:11 Influenza Type B (PCR) Not detected (NOT DETECT) 11/10/22 13:11 M. pneumoniae (PCR) Not detected (NOT DETECT) 11/10/22 13:11 Parainfluenza 1 (PCR) Not detected (NOT DETECT) 11/10/22 13:11 Parainfluenza 2 (PCR) Not detected (NOT DETECT) 11/10/22 13:11 Parainfluenza 3 (PCR) Not detected (NOT DETECT) 11/10/22 13:11 Parainfluenza 4 (PCR) Not detected (NOT DETECT) 11/10/22 13:11 RSV Type A (PCR) Not detected (NOT DETECT) 11/10/22 13:11 RSV Type B (PCR) Not detected (NOT DETECT) 11/10/22 13:11 Entero/Rhino (PCR) Not detected (NOT DETECT) 11/10/22 13:11 SARS-CoV-2 (PCR) Not detected (NOT DETECT) 11/10/22 13:11 SARS-CoV-2 Ag (Rapid) negative (Negative) 11/09/22 23:25 Vitals Last Vital Signs Temp 97.7 F 11/13/22 12:56 Pulse 104 H 11/13/22 12:56 Resp 18 11/13/22 12:56 BP 134/75 11/13/22 12:56 Pulse Ox 92 11/13/22 12:56 O2 Del Method Nasal Cannula 11/13/22 09:39 O2 Flow Rate 3 11/13/22 09:39 Discharge Plan Discharge Patient Disposition: Home Condition: Stable Prescriptions: New amoxicillin-pot clavulanate 875-125 mg tablet 1 tab PO BID 5 Days Qty: 10 0RF Continued alprazolam 0.5 mg tablet 0.5 mg PO TID PRN (Reason: Anxiety) krill oil 500 mg capsule 500 mg PO BEDTIME@18 oxycodone 5 mg tablet 5 mg PO BID PRN (Reason: pain) 30 Days Qty: 60 0RF multivitamin Tablet 1 tab PO DAILY spironolactone 25 mg tablet 25 mg PO DAILY@07 omeprazole 20 mg capsule,delayed release(DR/EC) 20 mg PO QAM Synthroid 75 mcg tablet 75 mcg PO DAILY@07 cyclobenzaprine 10 mg tablet 10 mg PO BID PRN (Reason: Muscle Spasm) Spiriva with HandiHaler 18 mcg capsule, w/inhalation device 1 cap inhalation DAILY Qty: 14 0RF Rx Instructions: puncture 1 cap using device; one dose = 2 inhalations lovastatin 40 mg tablet 40 mg PO DAILY@18 ascorbic acid (vitamin C) [Vitamin C] 500 mg Tablet 500 mg PO DAILY PRN (Reason: unknown) albuterol sulfate 90 mcg/actuation HFA aerosol inhaler 1 - 2 puff INHALATION Q4H PRN (Reason: Shortness Of Breath) Nicolette Back and Body 500-32.5 mg Tablet 1 tab PO Q6H PRN (Reason: Pain) Probiotic Blend 2 billion cell-50 mg Capsule 2 cap PO DAILY@12 fluticasone furoate-vilanterol [Breo Ellipta] 200-25 mcg/dose Blister With Device 1 inh INHALATION DAILY Discharge Orders: Discharge Order (Routine); Ordered 11/13/22 Ordered By: Micah Whyte Other Ambulatory Orders: DME: [facility] (Order) Location: None Selected Ordered By: Leigh Ann Zelaya Referrals: Mindy Knight FNP [Primary Care Provider] - 11/17/22 1:30 pm Patient Instructions: Amoxicillin/Clavulanate Potassium (By mouth), COPD (Chronic Obstructive Pulmonary Disease) (GEN), Pneumonia (GEN), COPD Stoplight, Opioid Safety, Pneumonia Stoplight Discharge Attestations Time Spent in Discharge Care*: less than 30 min Specific Discharge Activities: educating patient, educating and/or supporting family/caregiver, discussing with pillowcase sewer/social workers/dc planners, documenting/other paperwork and evaluating patient/reviewing data Status at Discharge: Cognitive status at discharge: cognitively intact, Behavioral status at discharge: cooperative, Quality Metrics Clinical Quality Measures [ No reported AMI, CVA or VTE this stay] Coding Level of Care Code Acute Code for Chg Fwd Total time (in minutes) for Discharge: 25 Diagnoses Weakness R53.1 COPD (chronic obstructive pulmonary disease) J44.9 Hyponatremia E87.1 Moderate protein malnutrition E44.0 Chronic lymphocytic leukemia of B-cell type not having achieved remission C91.10 Hypertension I10 Hyperlipidemia E78.5 Hypothyroidism E03.9 GERD (gastroesophageal reflux disease) K21.9 Pneumonia J18.9 COPD exacerbation J44.1
== END 2022-11-13 12:59 | disposition home or self-care (01) | DRG 194 ==
LOC: ER 23:28 → MEDSURG 11-10 00:17
PROVIDERS: Family Medicine; Student in an Organized Health Care Education/Training Program; Admitting Provider Hospitalist; Emergency Provider Emergency Medicine; PCP Nurse Practitioner Family; Visit Provider Family Medicine
DX: J18.9 Pneumonia, unspecified organism (principal); C91.10 Chronic lymphocytic leukemia of B-cell type not having achieved remission; J44.0 Chronic obstructive pulmonary disease with (acute) lower respiratory infection; J44.1 Chronic obstructive pulmonary disease with (acute) exacerbation; E87.1 Hypo-osmolality and hyponatremia; E44.0 Moderate protein-calorie malnutrition; R73.9 Hyperglycemia, unspecified; T38.0X5A Adverse effect of glucocorticoids and synthetic analogues, initial encounter; Z79.891 Long term (current) use of opiate analgesic; Z79.51 Long term (current) use of inhaled steroids; F41.9 Anxiety disorder, unspecified; K57.90 Diverticulosis of intestine, part unspecified, without perforation or abscess without bleeding; K21.9 Gastro-esophageal reflux disease without esophagitis; H40.9 Unspecified glaucoma; E78.5 Hyperlipidemia, unspecified; I10 Essential (primary) hypertension; E89.0 Postprocedural hypothyroidism; Z87.891 Personal history of nicotine dependence; Z68.25 Body mass index [BMI] 25.0-25.9, adult
CPT/HCPCS: 36415; 36416; 71045; 80048; 80053; 81001; 81003; 82550; 82570; 82962; 83036; 83605; 83735; 83880; 84100; 84145; 84300; 84443; 84484; 84550; 85025; 85651; 86140; 87040; 87070; 87205; 87426; 87486; 87581; 87633; 92523; 92610; 93005; 93306; 94640; 94760; 96365; 96372; 96375; 97110; 97116; 97161; 97165; 97530; 99283; 99285; J0456; J0696; J1650; J1815; J2920; J7030; J7050; J7512; J7626

== ENCOUNTER 2022-12-30 13:37 | Oncology outpatient (recurring) (ONCR) | payer MEDICARE, BC, SELFPAY ==
[2022-12-30 13:51] VITALS: BP 110/66; PULSE 86; RESP 16; TEMP 36.8; O2SAT 97
[2022-12-30 14:11] LABS: Basophils # 0.1 10^3/uL (0.0-0.1); Basophils % 0.5 %; Eosinophils # 0.2 10^3/uL (0.0-0.8); Eosinophils % 0.9 %; Hematocrit 39.6 % (36-47); Lymphocytes # 15.2 10^3/uL (0.8-4.8); Lymphocytes % 74.4 %; Mean Corpuscular HGB Conc 32.6 g/dL (30-55); Mean Corpuscular Hemoglobin 29.3 pg (27-33); Mean Corpuscular Volume 89.8 fl (85-98); Mean Platelet Volume 9.4 fL (7.4-10.4); Monocytes # 0.8 10^3/uL (0.2-0.9); Monocytes % 3.8 %; Neutrophils # 4.13 10^3/uL (1.8-7.7); Neutrophils % 20.2 %; Nucleated Red Blood Cells % 0 %; Platelet Count 158 10^3/cmm (157-399); Red Blood Count 4.41 10^6/uL (3.85-5.65); Red Cell Distribution Width 14.7 % (12.1-15.1); White Blood Count 20.41 10^3/uL (3.29-11.43)
[2022-12-30 14:26] LABS: Alanine Aminotransferase 21 U/L (0-33); Albumin Level 4.2 g/dL (3.5-5.2); Alkaline Phosphatase 65 U/L (35-105); Anion Gap 11.4 (5-19); Aspartate Amino Transferase 16 U/L (0-32); Blood Urea Nitrogen 21 mg/dL (8-23); Carbon Dioxide 27 mmol/L (22-29); Chloride 103 mmol/L (98-107); Glucose 97 mg/dL (65-115); Osmolality Calculated 287 mOsm/kg (285-295); Potassium 4.4 mmol/L (3.5-5.1); Sodium 137 mmol/L (136-145); Total Bilirubin 0.3 mg/dL (0.15-1.2); Total Protein 6.2 g/dL (6.6-8.7)
[2022-12-30 14:45] LABS: Slide Review Slide Review Perform
== END 2023-01-19 23:59 | disposition home or self-care (01) ==
PROVIDERS: Nurse Practitioner Family; PCP Nurse Practitioner Family; Visit Provider Internal Medicine Medical Oncology
DX: C91.10 Chronic lymphocytic leukemia of B-cell type not having achieved remission (principal); M19.90 Unspecified osteoarthritis, unspecified site
CPT/HCPCS: 36415; 80053; 85025; 99213

== ENCOUNTER 2023-04-07 10:59 | Oncology outpatient (recurring) (ONCR) | payer MEDICARE, BC, SELFPAY ==
[2023-04-07 11:15] VITALS: BP 128/78; PULSE 94; RESP 16; TEMP 37.3; O2SAT 92
[2023-04-07 11:23] LABS: Basophils # 0.2 10^3/uL (0.0-0.1); Basophils % 0.4 %; Eosinophils # 0.1 10^3/uL (0.0-0.8); Eosinophils % 0.3 %; Hematocrit 48.2 % (36-47); Lymphocytes # 30.8 10^3/uL (0.8-4.8); Lymphocytes % 77.3 %; Mean Corpuscular HGB Conc 32.6 g/dL (30-55); Mean Corpuscular Hemoglobin 28.4 pg (27-33); Mean Corpuscular Volume 87.2 fl (85-98); Mean Platelet Volume 9.1 fL (7.4-10.4); Monocytes # 0.8 10^3/uL (0.2-0.9); Neutrophils # 7.86 10^3/uL (1.8-7.7); Neutrophils % 19.7 %; Nucleated Red Blood Cells % 0 %; Platelet Count 220 10^3/cmm (157-399); Red Blood Count 5.53 10^6/uL (3.85-5.65); Red Cell Distribution Width 13.8 % (12.1-15.1)
[2023-04-07 11:41] LABS: Alanine Aminotransferase 18 U/L (0-33); Albumin Level 4.3 g/dL (3.5-5.2); Alkaline Phosphatase 84 U/L (35-105); Anion Gap 11.7 (5-19); Aspartate Amino Transferase 16 U/L (0-32); Blood Urea Nitrogen 12 mg/dL (8-23); Calcium 9.3 mg/dL (8.5-10.5); Carbon Dioxide 31 mmol/L (22-29); Chloride 97 mmol/L (98-107); Globulin 2.3 g/dL (1.3-4.6); Glucose 104 mg/dL (65-115); Osmolality Calculated 280 mOsm/kg (285-295); Potassium 4.7 mmol/L (3.5-5.1); Sodium 135 mmol/L (136-145); Total Bilirubin 0.4 mg/dL (0.15-1.2); Total Protein 6.6 g/dL (6.6-8.7)
[2023-04-07 12:11] LABS: Slide Review Slide Review Perform
== END 2023-04-21 23:59 | disposition home or self-care (01) ==
PROVIDERS: Nurse Practitioner Family; PCP Nurse Practitioner Family; Visit Provider Internal Medicine Medical Oncology
DX: C91.10 Chronic lymphocytic leukemia of B-cell type not having achieved remission (principal); M19.90 Unspecified osteoarthritis, unspecified site; Z08 Encounter for follow-up examination after completed treatment for malignant neoplasm; R53.83 Other fatigue; F17.200 Nicotine dependence, unspecified, uncomplicated; Z23 Encounter for immunization
CPT/HCPCS: 36415; 80053; 85025; 99214

== ENCOUNTER 2023-05-26 10:10 | Outpatient (CLI) | payer MEDICARE, BC, SELFPAY ==
--- NOTE | 2023-05-26 10:15 | MM_ITS ---
WS: [id number] SCREENING DIGITAL TOMOSYNTHESIS MAMMOGRAM WITH CAD HISTORY: SCREENING COMPARISON: 05/08/2022, 04/14/2022 and 03/19/2021 Bilateral CC and MLO with tomosynthesis views submitted. Synthetic mammography reviewed. Computer aid ed detection analyzed. Breast composition: The breasts are almost entirely fatty. No suspicious masses, microcalcifications or architectural distortion. Benign calcifications in each breast. Lobulated mass in the upper outer quadrant of the LEFT breast is probably a lymph node or cluster of lymph nodes. 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 IMPRESSION: MM/[place] [id number] BI-RADS: 2-Benign FOLLOW UP: 1 Year Follow-up
== END 2023-05-26 10:11 | disposition home or self-care (01) ==
LOC: RAD 10:11
PROVIDERS: PCP Nurse Practitioner Family; Visit Provider Nurse Practitioner Family
DX: Z12.31 Encounter for screening mammogram for malignant neoplasm of breast (principal)
CPT/HCPCS: 77063; 77067

== ENCOUNTER 2023-06-28 13:03 | Oncology outpatient (recurring) (ONCR) | payer MEDICARE, BC, SELFPAY ==
[2023-06-28 13:16] LABS: Basophils # 0.2 10^3/uL (0.0-0.1); Basophils % 0.3 %; Eosinophils # 0.3 10^3/uL (0.0-0.8); Eosinophils % 0.7 %; Hematocrit 46.1 % (36-47); Lymphocytes % 75.9 %; Mean Corpuscular HGB Conc 32.5 g/dL (30-55); Mean Corpuscular Hemoglobin 29.5 pg (27-33); Mean Corpuscular Volume 90.7 fl (85-98); Mean Platelet Volume 9.3 fL (7.4-10.4); Monocytes # 1.1 10^3/uL (0.2-0.9); Monocytes % 2.3 %; Neutrophils # 9.63 10^3/uL (1.8-7.7); Neutrophils % 20.4 %; Nucleated Red Blood Cells % 0.1 %; Platelet Count 206 10^3/cmm (157-399); Red Blood Count 5.08 10^6/uL (3.85-5.65); Red Cell Distribution Width 14.8 % (12.1-15.1)
[2023-06-28 13:23] LABS: Slide Review Slide Review Perform
[2023-06-28 13:24] LABS: White Blood Count 47.34 10^3/uL (3.29-11.43)
[2023-06-28 13:33] LABS: Alanine Aminotransferase 14 U/L (0-33); Albumin Level 4.1 g/dL (3.5-5.2); Alkaline Phosphatase 84 U/L (35-105); Anion Gap 12.9 (5-19); Aspartate Amino Transferase 14 U/L (0-32); Blood Urea Nitrogen 11 mg/dL (8-23); Calcium 9.6 mg/dL (8.5-10.5); Carbon Dioxide 31 mmol/L (22-29); Chloride 96 mmol/L (98-107); Globulin 2.4 g/dL (1.3-4.6); Glucose 106 mg/dL (65-115); Lactate Dehydrogenase 166 U/L (135-214); Osmolality Calculated 280 mOsm/kg (285-295); Potassium 4.9 mmol/L (3.5-5.1); Sodium 135 mmol/L (136-145); Total Bilirubin 0.3 mg/dL (0.15-1.2); Total Protein 6.5 g/dL (6.6-8.7)
[2023-06-28 15:20] LABS: Immunoglobulin IGA 63 mg/dL (70-400); Immunoglobulin IGG 533 mg/dL (700-1600); Immunoglobulin IGM 43 mg/dL (40-230)
== END 2023-07-20 23:59 | disposition home or self-care (01) ==
PROVIDERS: Internal Medicine; PCP Nurse Practitioner Family; Visit Provider Internal Medicine Medical Oncology
DX: C91.10 Chronic lymphocytic leukemia of B-cell type not having achieved remission (principal); M19.90 Unspecified osteoarthritis, unspecified site; Z08 Encounter for follow-up examination after completed treatment for malignant neoplasm; R53.83 Other fatigue; F17.200 Nicotine dependence, unspecified, uncomplicated; Z23 Encounter for immunization
CPT/HCPCS: 36415; 80053; 82784; 83615; 85025; 99214

== ENCOUNTER 2023-07-09 20:09 | Emergency (ER) | payer MEDICARE, BC, SELFPAY ==
[2023-07-09 20:16] VITALS: BP 131/72; PULSE 87; RESP 20; TEMP 36.5; O2SAT 93; BMI 30.1
--- NOTE | 2023-07-09 20:20 | XRR_ITS ---
PROCEDURE INFORMATION: Exam: XR Chest Exam date and time: 07/09/2023 8:33 PM Age: 78 years old Clinical indication: Chest wall pain; Additional info: Cxp TECHNIQUE: Imaging protocol: Radiologic exam of the chest. Views: 1 view. COMPARISON: CR (CHEST, ) 11/09/2022 7:23 PM FINDINGS: Lungs: Minimal strand-like atelectasis/scar in the left base. Moderate degenerative endplate spurring mid to lower thoracic spine. Pleural spaces: Unremarkable. No pleural effusion. No pneumothorax. Heart/Mediastinum: Unremarkable. No cardiomegaly. Bones/joints: Calcific left rotator cuff tendinopathy again noted. XR/XR chest 1V portable [id number] IMPRESSION: 1. No clear-cut acute plain radiographic changes or significant new abnormality since 11/09/2022. 2. Minor chronic left basilar strand-like scarring .
--- NOTE | 2023-07-09 20:20 | W.ED.CHESTPA ---
HPI - Chest Pain General: Chief Complaint: Abdominal Pain Stated Complaint: chest discomfort Time Seen by Provider: 07/09/23 20:14 History of Present Illness: 78-year-old female presents emergency department with complaints of sudden onset of epigastric pain after eating this evening. She states she became nauseated and became diaphoretic. She states she did not have chest pain or shortness of breath. She states that she is lactose intolerant and did not take her lactase pill before eating some salad dressing that may have dairy in it. Patient does have a history of CLL and states she sees Dr. Yarbrough. She states that she feels much better after arriving to the emergency department she is in no acute distress, she is not short of breath. Associated symptoms: Reports abdominal pain and nausea Review of Systems General: Reports: 10 or more systems reviewed and unremarkable except in HPI and below GI: Reports: abdominal pain and nausea [facility] ED PFSH: Medical History 3 Glaucoma Diverticulosis hospitalized with diverticulitis in 2003 COPD (chronic obstructive pulmonary disease) GERD (gastroesophageal reflux disease) Hypertension Anxiety Hyperlipidemia Degenerative arthritis Hypothyroidism 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) Surgical History History of carpal tunnel release right History of esophagogastroduodenoscopy (EGD) 03/2019 Dr Phan History of colonoscopy 03/2019 Dr Phan History of cataract surgery 2017 History of removal of cyst Removal of cysts from the back and left hand (ganglion cyst) History of tubal ligation History of subtotal thyroidectomy (~1984) Family History Denies family history of Clotting disorder Lung disease Cancer Social History Smoking and tobacco/nicotine status: former use of tobacco/nicotine Quit status (tobacco/nicotine): has quit using Year quit tobacco: June 2022 Former quit date comment: smoked 30 years Alcohol intake: never Substance/Drug Use: never Household members: spouse Marital status: Physical Exam Narrative: EXAM NARRATIVE: General: Alert, no acute distress. Skin: Warm, dry, Intact. Head: Normocephalic, atraumatic. Neck: Supple, trachea midline. Eye: Extraocular movements are intact. PERRLA Ears, nose, mouth and throat: mucosa moist. Cardiovascular: Regular, Normal peripheral perfusion. Respiratory: Lungs are clear to auscultation, respirations are non-labored, breath sounds are equal, Symmetrical chest wall expansion. Gastrointestinal: Soft, Nontender, Non distended, Normal bowel sounds. Musculoskeletal: Normal ROM, no deformity. Neurological: Alert and oriented, No focal neurological deficit observed. Psychiatric: Cooperative, appropriate mood & affect. Course Vital Signs: Vital signs: Vital Signs Temperature 97.7 F 07/09/23 20:16 Pulse Rate 90 07/09/23 20:36 Respiratory Rate 17 07/09/23 20:36 Blood Pressure 147/76 07/09/23 20:36 Pulse Oximetry 94 07/09/23 20:36 Oxygen Delivery Me thod Room Air 07/09/23 20:36 MDM - Chest Pain Medical Decision Making Physical exam completed and documented, I did obtain a CBC and CMP patient's white blood cell count is 50.9. She is being seen for her CLL by Dr. Yarbrough. CMP demonstrated sodium 135, glucose 165, the remainder of her laboratory evaluation was essentially negative. Cardiac enzymes are negative. Medical Records I reviewed the patient's medical records. Lab Data I reviewed the patient's lab results. 07/09/23 20:44 07/09/23 20:44 Radiology Impressions Chest X-Ray 07/09/23 20:20 IMPRESSION: 1. No clear-cut acute plain radiographic changes or significant new abnormality since 11/09/2022. 2. Minor chronic left basilar strand-like scarring . Laboratory Results WBC 50.94 10^3/uL (3.29-11.43) H* 07/09/23 20:44 RBC 5.31 10^6/uL (3.85-5.65) 07/09/23 20:44 Hgb 15.80 g/dL (11.27-16.99) 07/09/23 20:44 Hct 48.4 % (36-47) H 07/09/23 20:44 MCV 91.1 fl (85-98) 07/09/23 20:44 MCH 29.8 pg (27-33) 07/09/23 20:44 MCHC 32.6 g/dL (30-55) 07/09/23 20:44 RDW 14.6 % (12.1-15.1) 07/09/23 20:44 Plt Count 204 10^3/cmm (157-399) 07/09/23 20:44 MPV 9.2 fL (7.4-10.4) 07/09/23 20:44 Neut % (Auto) 23.9 % 07/09/23 20:44 Lymph % (Auto) 72.6 % 07/09/23 20:44 [place] % (Auto) 2.2 % 07/09/23 20:44 Eos % (Auto) 0.5 % 07/09/23 20:44 Baso % (Auto) 0.4 % 07/09/23 20:44 Neut # (Auto) 12.15 10^3/uL (1.8-7.7) H 07/09/23 20:44 Lymph # (Auto) 37.0 10^3/uL (0.8-4.8) H 07/09/23 20:44 [place] # (Auto) 1.1 10^3/uL (0.2-0.9) H 07/09/23 20:44 Eos # (Auto) 0.3 10^3/uL (0.0-0.8) 07/09/23 20:44 Baso # (Auto) 0.2 10^3/uL (0.0-0.1) H 07/09/23 20:44 Nucleated RBC % (auto) 0 % 07/09/23 20:44 Nucleated RBCs # 0.0 /100WBC 07/09/23 20:44 PT 12.80 SECONDS (12.1-14.9) 07/09/23 20:44 INR 0.93 (0.8-1.2) 07/09/23 20:44 Sodium 135 mmol/L (136-145) L 07/09/23 20:44 Potassium 3.9 mmol/L (3.5-5.1) 07/09/23 20:44 Chloride 99 mmol/L (98-107) 07/09/23 20:44 Carbon Dioxide 25 mmol/L (22-29) 07/09/23 20:44 Anion Gap 14.9 (5-19) 07/09/23 20:44 BUN 17 mg/dL (8-23) 07/09/23 20:44 Creatinine 0.9 mg/dL (0.5-0.9) 07/09/23 20:44 GFR Calculation Not Reportable 07/09/23 20:44 Glucose 165 mg/dL (65-115) H 07/09/23 20:44 Calculated Osmolality 285 mOsm/kg (285-295) 07/09/23 20:44 Calcium 8.7 mg/dL (8.5-10.5) 07/09/23 20:44 Total Bilirubin 0.4 mg/dL (0.15-1.2) 07/09/23 20:44 AST 23 U/L (0-32) 07/09/23 20:44 ALT 16 U/L (0-33) 07/09/23 20:44 Alkaline Phosphatase 92 U/L (35-105) 07/09/23 20:44 Troponin T Baseline 9 ng/L (0-10) 07/09/23 20:44 Troponin T 120 Minute 8.72 ng/L (0-10) 07/09/23 21:46 NT-Pro-B Natriuret Pep 76 pg/mL (0-450) 07/09/23 20:44 Total Protein 6.1 g/dL (6.6-8.7) L 07/09/23 20:44 Albumin 4.2 g/dL (3.5-5.2) 07/09/23 20:44 Globulin 1.9 g/dL (1.3-4.6) 07/09/23 20:44 All radiology interpretation(s) finalized by discharge EKG Data EKG 1: Interpretation: Twelve-lead EKG obtained at 2020 and reviewed at 2022 demonstrates sinus rhythm, ventricular rate 87, ND interval 168, QRS duration 89, QT 337, QTc 381. There is no ST elevation or depression to demonstrate acute ischemia or infarction at present. Discharge Plan Discharge Patient Disposition: Home Clinical Impression: Abdominal pain, Nausea, Abdominal gas pain Condition: Stable Prescriptions: No Action varenicline 1 mg tablet PO benzonatate 100 mg capsule PO alprazolam 0.5 mg tablet 0.5 mg PO TID PRN (Reason: Anxiety) krill oil 500 mg capsule 500 mg PO BEDTIME@18 polymyxin B sulf-trimethoprim 10,000 unit- 1 mg/mL drops 1 drp ophthalmic (eye) PRN furosemide 40 mg tablet PO colestipol 1 gram tablet 1 g PO BID PRN (Reason: loose stools) Qty: 60 0RF Rx Instructions: take one to two tabs daily for loose stools. metoclopramide HCl [Reglan] 10 mg tablet 10 mg PO QID PRN (Reason: nausea and vomiting) Qty: 120 1RF varenicline 0.5 mg (11)- 1 mg (42) tablets,dose pack See Rx Instructions PO PER PKG DIR Qty: 53 0RF Rx Instructions: PO PER PKG DIR oxycodone 5 mg tablet 5 mg PO BID PRN (Reason: pain) 30 Days Qty: 60 0RF multivitamin Tablet 1 tab PO DAILY spironolactone 25 mg tablet 25 mg PO DAILY@07 Synthroid 75 mcg tablet 75 mcg PO DAILY@07 omeprazole 20 mg capsule,delayed release(DR/EC) 40 mg PO QAM cyclobenzaprine 10 mg tablet 10 mg PO BID PRN (Reason: Muscle Spasm) Spiriva with HandiHaler 18 mcg capsule, w/inhalation device 1 cap inhalation DAILY Qty: 14 0RF Rx Instructions: puncture 1 cap using device; one dose = 2 inhalations lovastatin 40 mg tablet 40 mg PO DAILY@18 ascorbic acid (vitamin C) [Vitamin C] 500 mg Tablet 500 mg PO DAILY PRN (Reason: unknown) albuterol sulfate 90 mcg/actuation HFA aerosol inhaler 1 - 2 puff INHALATION Q4H PRN (Reason: Shortness Of Breath) Nicolette Back and Body 500-32.5 mg Tablet 1 tab PO Q6H PRN (Reason: Pain) Probiotic Blend 2 billion cell-50 mg Capsule 2 cap PO DAILY@12 fluticasone furoate-vilanterol [Breo Ellipta] 200-25 mcg/dose Blister With Device 1 inh INHALATION DAILY Discharge Orders: Discharge ED (Routine); Ordered 07/09/23 Ordered By: Jose Landry Referrals: Mindy Knight FNP [Primary Care Provider] - Discharge Diet: Usual diet Discharge Activity: Resume usual activity Patient Instructions: Abdominal Pain (ED), Opioid Safety, Pain Management Activity Restrictions/Additional Instructions: Activity Restrictions/Additional Instructions: Thank you for choosing [facility] for your healthcare needs today. Please realize that you were seen in the Emergency Department and that we are providing you with an emergency medical screening exam and this may not be a complete and all inclusive of all the testing and or medical work-up that you may need to determine your ailment or severity of your illness. It is very important that you follow-up as instructed with your Primary care provider or Specialist for additional evaluation and to discuss your medical treatment plan. You may return to the Emergency Department should you have concerns or if your condition changes or worsens in any way. Coding Level of Care Code ED Billboard Poster for Estela Lino
--- NOTE | 2023-07-09 20:21 | ECG_ITS ---
[facility] Test Date: 2023-07-09 Pat Name: Sue Delgado Department: Room: Gender: Female Manager Of Regulatory Affairs: : 1945 Requested By: Jose Landry Order Number: [id number] Reading MD: Fermin Barry M.D. Measurements Intervals [place] Rate: 87 P: 71 LA: 168 QRS: -18 QRSD: 89 T: 66 QT: 337 QTc: 406 Interpretive Statements SINUS RHYTHM LOW QRS VOLTAGE IN PRECORDIAL LEADS [QRS DEFLECTION < 1.0 mV IN CHEST LEADS] Compared to ECG 11/10/2022 18:17:15 No significant changes Electronically Signed On 07-10-2023 9:18:16 CDT by Fermin Barry M.D. [email or web address]
[2023-07-09 20:36] VITALS: BP 147/76; PULSE 90; RESP 17; O2SAT 94
[2023-07-09 20:48] LABS: Basophils # 0.2 10^3/uL (0.0-0.1); Basophils % 0.4 %; Eosinophils # 0.3 10^3/uL (0.0-0.8); Eosinophils % 0.5 %; Hematocrit 48.4 % (36-47); Lymphocytes % 72.6 %; Mean Corpuscular HGB Conc 32.6 g/dL (30-55); Mean Corpuscular Hemoglobin 29.8 pg (27-33); Mean Corpuscular Volume 91.1 fl (85-98); Mean Platelet Volume 9.2 fL (7.4-10.4); Monocytes # 1.1 10^3/uL (0.2-0.9); Monocytes % 2.2 %; Neutrophils # 12.15 10^3/uL (1.8-7.7); Neutrophils % 23.9 %; Nucleated Red Blood Cells % 0 %; Platelet Count 204 10^3/cmm (157-399); Red Blood Count 5.31 10^6/uL (3.85-5.65); Red Cell Distribution Width 14.6 % (12.1-15.1)
[2023-07-09 21:01] LABS: INR 0.93 (0.8-1.2)
[2023-07-09 21:12] LABS: Troponin(5th) Baseline 9 ng/L (0-10)
[2023-07-09 21:19] LABS: Alanine Aminotransferase 16 U/L (0-33); Albumin Level 4.2 g/dL (3.5-5.2); Alkaline Phosphatase 92 U/L (35-105); Anion Gap 14.9 (5-19); Aspartate Amino Transferase 23 U/L (0-32); Blood Urea Nitrogen 17 mg/dL (8-23); Calcium 8.7 mg/dL (8.5-10.5); Carbon Dioxide 25 mmol/L (22-29); Chloride 99 mmol/L (98-107); Creatinine Clr Calc Pharmacy 55.4011; Globulin 1.9 g/dL (1.3-4.6); Glucose 165 mg/dL (65-115); Osmolality Calculated 285 mOsm/kg (285-295); Potassium 3.9 mmol/L (3.5-5.1); Sodium 135 mmol/L (136-145); Total Bilirubin 0.4 mg/dL (0.15-1.2); Total Protein 6.1 g/dL (6.6-8.7)
[2023-07-09 21:20] LABS: NT Pro B Type Natriuretic Pept 76 pg/mL (0-450); Slide Review Slide Review Perform; White Blood Count 50.94 10^3/uL (3.29-11.43)
[2023-07-09 22:13] LABS: Troponin 5 2HR 8.72 ng/L (0-10)
[2023-07-09 22:15] LABS: Troponin 5 2HR Delta -0.28 ABS# (0-10)
== END 2023-07-10 00:51 | disposition home or self-care (01) ==
PROVIDERS: Emergency Provider Internal Medicine; PCP Nurse Practitioner Family
DX: R10.13 Epigastric pain (principal); R11.0 Nausea; R14.1 Gas pain; Z87.891 Personal history of nicotine dependence; J44.9 Chronic obstructive pulmonary disease, unspecified; I10 Essential (primary) hypertension; E78.5 Hyperlipidemia, unspecified; Z85.6 Personal history of leukemia
CPT/HCPCS: 36415; 71045; 80053; 83880; 84484; 85025; 85610; 93005; 99285

== ENCOUNTER 2023-07-14 10:04 | Outpatient (CLI) | payer MEDICARE, BC, SELFPAY ==
--- NOTE | 2023-07-14 10:15 | CT_ITS ---
WS: [id number] LDCT LUNG CANCER SCREENING HISTORY: Tobacco abuse TECHNIQUE: Axial imaging performed from the apices to 1 cm below the costophrenic angles. Coronal and sagittal reformats are submitted with axial MIP series. All CT scans at [facility] use at least one of these dose optimization techniques: automated exposure control; mA and/or kV adjustment per patient size (includes targeted exams where dose is matched to clinical indication); or iterativ e reconstruction. DLP: 84.21 mGy.cm DIvol: Mean CTDIvol: 1.90 (mGy) COMPARISON: 07/07/2022 Diagnostic quality: Satisfactory Lungs: Persistent linear areas of atelectasis or scarring in the lower lung dixon. Otherwise slightl y better improved aeration of both lungs compared to the prior exam. Early changes of bronchiectasis medial RIGHT upper lobe and bilaterally in the lower lung dixon. No suspicious mass or nodule. Heart: Normal size heart with no pericardial effusion.. Other findings: Mild atherosclerosis aorta. No aneurysm. Normal size pulmonary artery. No adenopathy. No hiatal hernia. Mild hepatic steatosis. Moderate increase in thoracic kyphosis. IMPRESSION: CT/CT lung screening [id number] LUNG-RADS: 1-Negative FOLLOW UP: 12 Month: Continue annual screening with LDCT OTHER FINDINGS (S MODIFIER): None.
== END 2023-07-14 10:05 | disposition home or self-care (01) ==
LOC: RAD 10:04
PROVIDERS: PCP Nurse Practitioner Family; Visit Provider Internal Medicine
DX: Z12.2 Encounter for screening for malignant neoplasm of respiratory organs (principal); F17.218 Nicotine dependence, cigarettes, with other nicotine-induced disorders; I70.0 Atherosclerosis of aorta; K76.0 Fatty (change of) liver, not elsewhere classified; M40.204 Unspecified kyphosis, thoracic region
CPT/HCPCS: 71271

== ENCOUNTER 2023-09-30 13:51 | Oncology outpatient (recurring) (ONCR) | payer MEDICARE, BC, SELFPAY ==
[2023-09-30 14:19] LABS: Basophils # 0.2 10^3/uL (0.0-0.1); Basophils % 0.4 %; Eosinophils # 0.2 10^3/uL (0.0-0.8); Eosinophils % 0.5 %; Lymphocytes # 30.4 10^3/uL (0.8-4.8); Lymphocytes % 75.5 %; Mean Corpuscular HGB Conc 32.6 g/dL (30-55); Mean Corpuscular Hemoglobin 29.7 pg (27-33); Mean Corpuscular Volume 91.3 fl (85-98); Mean Platelet Volume 9.3 fL (7.4-10.4); Monocytes # 1.2 10^3/uL (0.2-0.9); Monocytes % 3.1 %; Neutrophils # 8.19 10^3/uL (1.8-7.7); Neutrophils % 20.2 %; Nucleated Red Blood Cells # 0.1 /100WBC; Nucleated Red Blood Cells % 0.1 %; Platelet Count 188 10^3/cmm (157-399); Red Blood Count 4.71 10^6/uL (3.85-5.65); Red Cell Distribution Width 13.3 % (12.1-15.1)
[2023-09-30 14:54] LABS: Alanine Aminotransferase 19 U/L (0-33); Alkaline Phosphatase 83 U/L (35-105); Anion Gap 14.4 (5-19); Aspartate Amino Transferase 15 U/L (0-32); Blood Urea Nitrogen 16 mg/dL (8-23); Calcium 8.3 mg/dL (8.5-10.5); Carbon Dioxide 26 mmol/L (22-29); Chloride 101 mmol/L (98-107); Globulin 2.2 g/dL (1.3-4.6); Glucose 120 mg/dL (65-115); Immunoglobulin IGA 69 mg/dL (70-400); Immunoglobulin IGG 524 mg/dL (700-1600); Immunoglobulin IGM 36 mg/dL (40-230); Osmolality Calculated 286 mOsm/kg (285-295); Potassium 4.4 mmol/L (3.5-5.1); Sodium 137 mmol/L (136-145); Thyroid Stimulating Hormone 1.98 uIU/mL (0.27-4.20); Total Bilirubin 0.3 mg/dL (0.15-1.2); Total Protein 6.2 g/dL (6.6-8.7)
[2023-09-30 15:06] LABS: Slide Review Slide Review Perform
[2023-09-30 15:09] LABS: White Blood Count 40.29 10^3/uL (3.29-11.43)
== END 2023-10-20 23:59 | disposition home or self-care (01) ==
PROVIDERS: Internal Medicine; PCP Nurse Practitioner Family; Visit Provider Internal Medicine Medical Oncology
DX: C91.10 Chronic lymphocytic leukemia of B-cell type not having achieved remission (principal); Z53.9 Procedure and treatment not carried out, unspecified reason; E78.5 Hyperlipidemia, unspecified; Z87.891 Personal history of nicotine dependence; Z79.899 Other long term (current) drug therapy
CPT/HCPCS: 36415; 80053; 82784; 84443; 85025; 99214

== ENCOUNTER 2023-10-27 01:41 | Emergency (ER) | payer MEDICARE, BC, SELFPAY ==
[2023-10-27] VITALS (16 sets, daily range): BP systolic 113–165; BP diastolic 54–135; PULSE 77–108; RESP 17–28; TEMP 36.4; O2SAT 86–96; BMI 29.3
[2023-10-27 02:16] LABS: Basophils # 0.1 10^3/uL (0.0-0.1); Basophils % 0.2 %; Hematocrit 50.7 % (36-47); Lymphocytes # 23.6 10^3/uL (0.8-4.8); Lymphocytes % 73.7 %; Mean Corpuscular HGB Conc 31.8 g/dL (30-55); Mean Corpuscular Hemoglobin 29.6 pg (27-33); Mean Corpuscular Volume 93.2 fl (85-98); Mean Platelet Volume 9.2 fL (7.4-10.4); Monocytes # 0.1 10^3/uL (0.2-0.9); Monocytes % 0.4 %; Neutrophils # 8.15 10^3/uL (1.8-7.7); Neutrophils % 25.5 %; Nucleated Red Blood Cells % 0 %; Platelet Count 169 10^3/cmm (157-399); Red Blood Count 5.44 10^6/uL (3.85-5.65); Red Cell Distribution Width 13.6 % (12.1-15.1)
[2023-10-27 02:38] LABS: Alanine Aminotransferase 127 U/L (0-33); Albumin Level 3.9 g/dL (3.5-5.2); Alkaline Phosphatase 284 U/L (35-105); Anion Gap 17.9 (5-19); Aspartate Amino Transferase 126 U/L (0-32); Blood Urea Nitrogen 14 mg/dL (8-23); Calcium 9.1 mg/dL (8.5-10.5); Carbon Dioxide 24 mmol/L (22-29); Chloride 99 mmol/L (98-107); Creatinine Clr Calc Pharmacy 63.7781; Globulin 2.7 g/dL (1.3-4.6); Glucose 218 mg/dL (65-115); Lipase 43 U/L (13-60); Osmolality Calculated 291 mOsm/kg (285-295); Potassium 3.9 mmol/L (3.5-5.1); Sodium 137 mmol/L (136-145); Total Protein 6.6 g/dL (6.6-8.7)
[2023-10-27 02:47] LABS: Slide Review Slide Review Perform
[2023-10-27 02:48] LABS: White Blood Count 32.09 10^3/uL (3.29-11.43)
--- NOTE | 2023-10-27 02:53 | CTR_ITS ---
PROCEDURE INFORMATION: Exam: CT Abdomen And Pelvis With Contrast Exam date and time: 10/27/2023 3:41 AM Age: 78 years old Clinical indication: Abdominal pain; Prior surgery; Surgery date: 6+ months; Surgery type: Tubal; Patient HX: HX of clluekemia dx in 2002; Additional info: Abd pain ruq/epigastric elevated lfts/bili TECHNIQUE: Imaging protocol: Computed tomography of the abdomen and pelvis with contrast. Radiation optimization: All CT scans at this facility use at least one of these dose optimization techniques: automated exposure control; mA and/or kV adjustment per patient size (includes targeted exams where dose is matched to clinical indication); or iterative reconstruction. Contrast material: OMNI 350; Contrast volume: 100 ml; Contrast route: INTRAVENOUS (IV); COMPARISON: CT abdomen pelvis wo con [id number] 09/26/2020 9:21 AM RADIATION DOSE METRICS: Total DLP (mGy-cm): 898.44 FINDINGS: Lungs: Basilar scarring/atelectasis. Heart: Base of heart is unremarkable as visualized. Liver: Periportal edema. Gallbladder and biliary ducts: Prominence of the intrahepatic and extrahepatic biliary ducts, reaching up to 1.4 cm of the common bile duct. No tapering is noted, dilation extends to the ampulla Vater where there is a small focus of somewhat hyperenhancing tissue appreciated on series 3, image 43; series 5, image 31. Gallbladder is distended. Pancreas: Normal. No ductal dilation. Spleen: Normal. No splenomegaly. Adrenal glands: Normal. No mass. Kidneys and ureters: A few scattered right renal cortical hypodensities too small to characterize by modality, statistically likely to represent benign entities. Wedge like focus of cortical atrophy of the left lower renal pole, likely represents sequela of prior insult. Stomach and bowel: Diverticulosis without evidence of diverticulitis. Moderate proximal colonic stool burden. Fecalization of small bowel which can be seen in slow transit. Stomach is distended, extending into the pylorus. Appendix: No evidence of appendicitis. Intraperitoneal space: Unremarkable. No free air. No significant fluid collection. Vasculature: Moderate lower abdominal calcified atherosclerotic disease of the visualized aorta. Lymph nodes: Prominent gastrohepatic ligament lymph nodes which appear more prominent in comparison with prior. Prominent pericaval lymph nodes which appear more prominent from prior comparisons. Urinary bladder: Unremarkable as visualized. Reproductive: Numerous calcified uterine fibroids. Bones/joints: Degenerative change of the visualized osseous structures. Soft tissues: Unremarkable. CT/CT abdomen pelvis w con* [id number] IMPRESSION: 1. Dilated biliary system with possible mass of the ampulla of Vater. Recommend gastrointestinal consultation and magnetic resonance cholangiopancreatography for further assessment. 2. Dilated gallbladder without secondary evidence for significant inflammation, however recommend right upper quadrant ultrasound for assessment of possible superimposed cholecystitis given biliary stasis. 3. Increasing prominence of intra-abdominal lymph nodes, nonspecific, however given patient history, cannot exclude recurrence of disease. Correlate with laboratory values. Hematology and oncology consultation should be obtained on an outpatient basis to help assess for disease status. 4. Additional findings as above. COMMENTS: Consistent with the [employer]'s Incidental Findings Committee white paper (J Am Duyen Radiol 2018): Any incidental renal lesion less than 1 cm or classified as too small to characterize, or any incidental cystic renal lesion characterized as simple-appearing, is likely benign. No follow-up imaging is recommended for these lesions per consensus recommendations based on imaging criteria.
--- NOTE | 2023-10-27 02:58 | ED_ITS ---
Documented by User: Castro Joe DO 10/27/23 05:28 HPI - Abdominal Pain 2 General: Chief Complaint: Abdominal Pain Stated Complaint: abd pain Time Seen by Provider: 10/27/23 01:43 History of Present Illness: Patient was laying in bed and then started suddenly having 10 out of 10 abdominal pain in the upper abdomen that wraps around to her back and then went down to her lower abdomen she said it feels like having contractions. Patient has never had pain like this before. She was given Zofran and fentanyl during the ambulance ride and it did help her pain. Patient does have a history of GERD, hyperlipidemia, and CLL. 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) Surgical History History of carpal tunnel release right History of esophagogastroduodenoscopy (EGD) 03/2019 Dr Phan History of colonoscopy 03/2019 Dr Phan History of cataract surgery 2017 History of removal of cyst Removal of cysts from the back and left hand (ganglion cyst) History of tubal ligation History of subtotal thyroidectomy (~1984) Family History Denies family history of Clotting disorder Lung disease Cancer Social History Smoking and tobacco/nicotine status: former use of tobacco/nicotine Quit status (tobacco/nicotine): has quit using Year quit tobacco: June 2022 Former quit date comment: smoked 30 years Alcohol intake: never Substance/Drug Use: never Household members: spouse Marital status: Physical Exam 2 Const: COMMON NORMALS: no acute distress, average body habitus, patient oriented x3, no limitations, healthy appearing, alert and well nourished HENMT: COMMON NORMALS: normocephalic, atraumatic, hearing grossly normal bilaterally, external ears normal, Normal external nose present and moist oral mucous membranes HEAD & SCALP: normocephalic and atraumatic NOSE: Normal external nose present EXTERNAL EAR: Yes external ears normal Neck/C-Spine: COMMON NORMALS: no JVD Chest: COMMONS NORMALS: normal inspection of the chest and normal palpation of entire chest wall Resp: COMMON NORMALS: normal respiratory effort, No retractions, No use of accessory muscles and clear to auscultation bilaterally AUSCULTATION: clear to auscultation bilaterally Cardio: COMMON NORMALS: no JVD, regular rate, regular rhythm, S1 normal heart sound present, S2 normal heart sound present, No gallops present (Cardio), No clicks present (Cardio), No murmurs present (Cardio) and No rub (Cardio) R ATE: regular rate RHYTHM: regular rhythm HEART SOUNDS: S1 normal heart sound present and S2 normal heart sound present GI: COMMON NORMALS: Normal to inspection, nondistended, normoactive bowel sounds present, Soft to palpation, No hepatosplenomegaly present and no masses; negative for non-tender (Mild tenderness to palpation of upper abdominal) P ALPATION: Yes Soft to palpation and Yes No hepatosplenomegaly present Neuro: COMMON NORMALS: patient oriented x3 SENSORIUM/ORIENTATION: Yes alert Course 2 Vital Signs: Vital signs: Vital Signs Temperature 97.6 F 10/27/23 01:42 Pulse Rate 88 10/27/23 09:00 Respiratory Rate 22 H 10/27/23 06:00 Blood Pressure 128/89 10/27/23 09:00 Pulse Oximetry 86 L 10/27/23 09:00 Oxygen Delivery Me thod Nasal Cannula 10/27/23 07:25 Oxygen Flow Rate 2 10/27/23 07:25 MDM - Abdominal Pain Differential Diagnosis Likely abdominal pain Medical Records I reviewed the patient's medical records. Lab Data I reviewed the patient's lab results. 10/27/23 02:10 10/27/23 02:10 Labs/Radiology: Radiology Impressions Abdomen/Pelvis CT 10/27/23 02:53 IMPRESSION: 1. Dilated biliary system with possible mass of the ampulla of Vater. Recommend gastrointestinal consultation and magnetic resonance cholangiopancreatography for further assessment. 2. Dilated gallbladder without secondary evidence for significant inflammation, however recommend right upper quadrant ultrasound for assessment of possible superimposed cholecystitis given biliary stasis. 3. Increasing prominence of intra-abdominal lymph nodes, nonspecific, however given patient history, cannot exclude recurrence of disease. Correlate with laboratory values. Hematology and oncology consultation should be obtained on an outpatient basis to help assess for disease status. 4. Additional findings as above. COMMENTS: Consistent with the [employer] [place] [employer]'s Incidental Findings Committee white paper (J Am Duyen Radiol 2018): Any incidental renal lesion less than 1 cm or classified as too small to characterize, or any incidental cystic renal lesion characterized as simple-appearing, is likely benign. No follow-up imaging is recommended for these lesions per consensus recommendations based on imaging criteria. Abdomen Ultrasound 10/27/23 05:15 IMPRESSION: 1. Mildly hydropic gallbladder with no stones identified. 2. Mild intra and extrahepatic bile duct dilatation. 3. No pericholecystic fluid. Cholangiopancreatography MRI 10/27/23 05:26 IMPRESSION: 1. Mild intrahepatic and extrahepatic bile duct dilatation to 10 mm. 2. Filling defect at the ampulla of Vater. Configuration is most likely a stone. Recommend ERCP at this time to confirm mass versus stone at the ampulla of Vater. 3. Moderate splenomegaly. 4. Pancreatic duct is top normal size. Notified Dr. Eduardo at 10/27/2023 8:34 AM. Laboratory Results WBC 32.09 10^3/uL (3.29-11.43) H* 10/27/23 02:10 RBC 5.44 10^6/uL (3.85-5.65) 10/27/23 02:10 Hgb 16.10 g/dL (11.27-16.99) 10/27/23 02:10 Hct 50.7 % (36-47) H 10/27/23 02:10 MCV 93.2 fl (85-98) 10/27/23 02:10 MCH 29.6 pg (27-33) 10/27/23 02:10 MCHC 31.8 g/dL (30-55) 10/27/23 02:10 RDW 13.6 % (12.1-15.1) 10/27/23 02:10 Plt Count 169 10^3/cmm (157-399) 10/27/23 02:10 MPV 9.2 fL (7.4-10.4) 10/27/23 02:10 Neut % (Auto) 25.5 % 10/27/23 02:10 Lymph % (Auto) 73.7 % 10/27/23 02:10 [place] % (Auto) 0.4 % 10/27/23 02:10 Eos % (Auto) 0.0 % 10/27/23 02:10 Baso % (Auto) 0.2 % 10/27/23 02:10 Neut # (Auto) 8.15 10^3/uL (1.8-7.7) H 10/27/23 02:10 Lymph # (Auto) 23.6 10^3/uL (0.8-4.8) H 10/27/23 02:10 [place] # (Auto) 0.1 10^3/uL (0.2-0.9) L 10/27/23 02:10 Eos # (Auto) 0.0 10^3/uL (0.0-0.8) 10/27/23 02:10 Baso # (Auto) 0.1 10^3/uL (0.0-0.1) 10/27/23 02:10 Nucleated RBC % (auto) 0 % 10/27/23 02:10 Nucleated RBCs # 0.0 /100WBC 10/27/23 02:10 Sodium 137 mmol/L (136-145) 10/27/23 02:10 Potassium 3.9 mmol/L (3.5-5.1) 10/27/23 02:10 Chloride 99 mmol/L (98-107) 10/27/23 02:10 Carbon Dioxide 24 mmol/L (22-29) 10/27/23 02:10 Anion Gap 17.9 (5-19) 10/27/23 02:10 BUN 14 mg/dL (8-23) 10/27/23 02:10 Creatinine 0.8 mg/dL (0.5-0.9) 10/27/23 02:10 GFR Calculation Not Reportable 10/27/23 02:10 Glucose 218 mg/dL (65-115) H 10/27/23 02:10 Calculated Osmolality 291 mOsm/kg (285-295) 10/27/23 02:10 Calcium 9.1 mg/dL (8.5-10.5) 10/27/23 02:10 Total Bilirubin 2.0 mg/dL (0.15-1.2) H 10/27/23 02:10 AST 126 U/L (0-32) H 10/27/23 02:10 ALT 127 U/L (0-33) H 10/27/23 02:10 Alkaline Phosphatase 284 U/L (35-105) H 10/27/23 02:10 Total Protein 6.6 g/dL (6.6-8.7) 10/27/23 02:10 Albumin 3.9 g/dL (3.5-5.2) 10/27/23 02:10 Globulin 2.7 g/dL (1.3-4.6) 10/27/23 02:10 Lipase 43 U/L (13-60) 10/27/23 02:10 Urine Color Dark yellow (Yellow) A 10/27/23 04:00 Urine Appearance Clear (CLEAR) 10/27/23 04:00 Urine pH 5.5 (5-7) 10/27/23 04:00 Ur Specific Viola 1.032 (1.005-1.030) H 10/27/23 04:00 Urine Protein Negative (Negative) 10/27/23 04:00 Urine Glucose (UA) Trace (Normal) H 10/27/23 04:00 Urine Ketones Trace (Negative) 10/27/23 04:00 Urine Blood Negative (Negative) 10/27/23 04:00 Urine Nitrate Negative (Negative) 10/27/23 04:00 Urine Bilirubin 2+ (Negative) H 10/27/23 04:00 Urine Urobilinogen 2.0 mg/dL (Negative) H 10/27/23 04:00 Ur Leukocyte Esterase 2+ (Negative) A 10/27/23 04:00 Urine RBC 0-2 /hpf (0-2) 10/27/23 04:00 Urine WBC 11-20 /hpf (0-5) H 10/27/23 04:00 Ur Squamous Epith Cells 0-5 /hpf (0-5) 10/27/23 04:00 Amorphous Sediment Not Reportable 10/27/23 04:00 Urine Bacteria None seen /hpf (NONE) 10/27/23 04:00 Hyaline Casts 0-4 /lpf H 10/27/23 04:00 All radiology interpretation(s) finalized by discharge Discharge Plan Discharge Patient Disposition: Xfer Short-Term Hosp Clinical Impression: Choledocholithiasis, Transaminitis, Biliary obstruction Condition: Stable Discharge Orders: Transfer Out of Facility (Order); Ordered 10/27/23 Ordered By: Charissa Eduardo Referrals: Mindy Knight FNP [Primary Care Provider] - Coding Level of Care Code ED Electrical Logging Operator for Chg Fwd Documented by User: Charissa Eduardo MD 10/27/23 09:44 HPI - Abdominal Pain 2 General: Chief Complaint: Abdominal Pain Stated Complaint: abd pain Time Seen by Provider: 10/27/23 01:43 PFSH ED 2 PFSH: Medical History Moderate protein malnutrition 3 Glaucoma Diverticulosis hospitalized with diverticulitis in 2003 COPD (chronic obstructive pulmonary disease) GERD (gastroesophageal reflux disease) Hypertension Anxiety Hyperlipidemia Degenerative arthritis Hypothyroidism 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) Surgical History History of carpal tunnel release right History of esophagogastroduodenoscopy (EGD) 03/2019 Dr Phan History of colonoscopy 03/2019 Dr Phan History of cataract surgery 2017 History of removal of cyst Removal of cysts from the back and left hand (ganglion cyst) History of tubal ligation History of subtotal thyroidectomy (~1984) Family History Denies family history of Clotting disorder Lung disease Cancer Social History Smoking and tobacco/nicotine status: former use of tobacco/nicotine Quit status (tobacco/nicotine): has quit using Year quit tobacco: June 2022 Former quit date comment: smoked 30 years Alcohol intake: never Substance/Drug Use: never Household members: spouse Marital status: Course 2 Vital Signs: Vital signs: Vital Signs Temperature 97.6 F 10/27/23 01:42 Pulse Rate 88 10/27/23 09:00 Respiratory Rate 22 H 10/27/23 06:00 Blood Pressure 128/89 10/27/23 09:00 Pulse Oximetry 86 L 10/27/23 09:[address] thod Nasal Cannula 10/27/23 07:25 Oxygen Flow Rate 2 10/27/23 07:25 MDM - Abdominal Pain Medical Decision Making Patient care was transitioned to wy at shift change: Ultrasound and MRCP were pending. MRCP: No signs of cholecystitis or cholelithiasis. There does appear to be a filling defect at the ampulla levator that seems most likely to be a stone. ERCP is recommended. There is mild intrahepatic and extrahepatic bile duct dilatation up to 10 mm. This was reviewed and interpreted by myself the emergency room physician. I also reviewed the radiology report. I discussed the findings with the radiologist on-call. Reexamination: Patient is having no increased work of breathing. While sleeping her O2 sats did drop a little bit and she has been on nasal cannula. She says her pain is much better. No altered mental status. No focal motor deficits. We discussed transfer. Assessment and plan: Choledocholithiasis versus a mass at the ampulla Cristiane Biliary obstruction Transaminitis -Patient being transferred to tertiary care where there is GI and ERCP can be performed. -Patient accepted to [facility] in [place] by Dr. Lee. - Discussed findings and plan with patient. Answered any questions. - All laboratory values were reviewed and interpreted personally by myself, the ER physician - All imaging was reviewed and interpreted personally by myself, the ER physician. - Evaluation and treatment of this problem were appropriate in the emergency setting Lab Data 10/27/23 02:10 10/27/23 02:10 Labs/Radiology: Radiology Impressions Abdomen/Pelvis CT 10/27/23 02:53 IMPRESSION: 1. Dilated biliary system with possible mass of the ampulla of Vater. Recommend gastrointestinal consultation and magnetic resonance cholangiopancreatography for further assessment. 2. Dilated gallbladder without secondary evidence for significant inflammation, however recommend right upper quadrant ultrasound for assessment of possible superimposed cholecystitis given biliary stasis. 3. Increasing prominence of intra-abdominal lymph nodes, nonspecific, however given patient history, cannot exclude recurrence of disease. Correlate with laboratory values. Hematology and oncology consultation should be obtained on an outpatient basis to help assess for disease status. 4. Additional findings as above. COMMENTS: Consistent with the [place] [employer]'s Incidental Findings Committee white paper (J Am Duyen Radiol 2018): Any incidental renal lesion less than 1 cm or classified as too small to characterize, or any incidental cystic renal lesion characterized as simple-appearing, is likely benign. No follow-up imaging is recommended for these lesions per consensus recommendations based on imaging criteria. Abdomen Ultrasound 10/27/23 05:15 IMPRESSION: 1. Mildly hydropic gallbladder with no stones identified. 2. Mild intra and extrahepatic bile duct dilatation. 3. No pericholecystic fluid. Cholangiopancreatography MRI 10/27/23 05:26 IMPRESSION: 1. Mild intrahepatic and extrahepatic bile duct dilatation to 10 mm. 2. Filling defect at the ampulla of Vater. Configuration is most likely a stone. Recommend ERCP at this time to confirm mass versus stone at the ampulla of Vater. 3. Moderate splenomegaly. 4. Pancreatic duct is top normal size. Notified Dr. Eduardo at 10/27/2023 8:34 AM. Laboratory Results WBC 32.09 10^3/uL (3.29-11.43) H* 10/27/23 02:10 RBC 5.44 10^6/uL (3.85-5.65) 10/27/23 02:10 Hgb 16.10 g/dL (11.27-16.99) 10/27/23 02:10 Hct 50.7 % (36-47) H 10/27/23 02:10 MCV 93.2 fl (85-98) 10/27/23 02:10 MCH 29.6 pg (27-33) 10/27/23 02:10 MCHC 31.8 g/dL (30-55) 10/27/23 02:10 RDW 13.6 % (12.1-15.1) 10/27/23 02:10 Plt Count 169 10^3/cmm (157-399) 10/27/23 02:10 MPV 9.2 fL (7.4-10.4) 10/27/23 02:10 Neut % (Auto) 25.5 % 10/27/23 02:10 Lymph % (Auto) 73.7 % 10/27/23 02:10 [place] % (Auto) 0.4 % 10/27/23 02:10 Eos % (Auto) 0.0 % 10/27/23 02:10 Baso % (Auto) 0.2 % 10/27/23 02:10 Neut # (Auto) 8.15 10^3/uL (1.8-7.7) H 10/27/23 02:10 Lymph # (Auto) 23.6 10^3/uL (0.8-4.8) H 10/27/23 02:10 [place] # (Auto) 0.1 10^3/uL (0.2-0.9) L 10/27/23 02:10 Eos # (Auto) 0.0 10^3/uL (0.0-0.8) 10/27/23 02:10 Baso # (Auto) 0.1 10^3/uL (0.0-0.1) 10/27/23 02:10 Nucleated RBC % (auto) 0 % 10/27/23 02:10 Nucleated RBCs # 0.0 /100WBC 10/27/23 02:10 Sodium 137 mmol/L (136-145) 10/27/23 02:10 Potassium 3.9 mmol/L (3.5-5.1) 10/27/23 02:10 Chloride 99 mmol/L (98-107) 10/27/23 02:10 Carbon Dioxide 24 mmol/L (22-29) 10/27/23 02:10 Anion Gap 17.9 (5-19) 10/27/23 02:10 BUN 14 mg/dL (8-23) 10/27/23 02:10 Creatinine 0.8 mg/dL (0.5-0.9) 10/27/23 02:10 GFR Calculation Not Reportable 10/27/23 02:10 Glucose 218 mg/dL (65-115) H 10/27/23 02:10 Calculated Osmolality 291 mOsm/kg (285-295) 10/27/23 02:10 Calcium 9.1 mg/dL (8.5-10.5) 10/27/23 02:10 Total Bilirubin 2.0 mg/dL (0.15-1.2) H 10/27/23 02:10 AST 126 U/L (0-32) H 10/27/23 02:10 ALT 127 U/L (0-33) H 10/27/23 02:10 Alkaline Phosphatase 284 U/L (35-105) H 10/27/23 02:10 Total Protein 6.6 g/dL (6.6-8.7) 10/27/23 02:10 Albumin 3.9 g/dL (3.5-5.2) 10/27/23 02:10 Globulin 2.7 g/dL (1.3-4.6) 10/27/23 02:10 Lipase 43 U/L (13-60) 10/27/23 02:10 Urine Color Dark yellow (Yellow) A 10/27/23 04:00 Urine Appearance Clear (CLEAR) 10/27/23 04:00 Urine pH 5.5 (5-7) 10/27/23 04:00 Ur Specific Viola 1.032 (1.005-1.030) H 10/27/23 04:00 Urine Protein Negative (Negative) 10/27/23 04:00 Urine Glucose (UA) Trace (Normal) H 10/27/23 04:00 Urine Ketones Trace (Negative) 10/27/23 04:00 Urine Blood Negative (Negative) 10/27/23 04:00 Urine Nitrate Negative (Negative) 10/27/23 04:00 Urine Bilirubin 2+ (Negative) H 10/27/23 04:00 Urine Urobilinogen 2.0 mg/dL (Negative) H 10/27/23 04:00 Ur Leukocyte Esterase 2+ (Negative) A 10/27/23 04:00 Urine RBC 0-2 /hpf (0-2) 10/27/23 04:00 Urine WBC 11-20 /hpf (0-5) H 10/27/23 04:00 Ur Squamous Epith Cells 0-5 /hpf (0-5) 10/27/23 04:00 Amorphous Sediment Not Reportable 10/27/23 04:00 Urine Bacteria None seen /hpf (NONE) 10/27/23 04:00 Hyaline Casts 0-4 /lpf H 10/27/23 04:00 Discharge Plan Discharge Patient Disposition: Xfer Short-Term Hosp Clinical Impression: Choledocholithiasis, Transaminitis, Biliary obstruction Condition: Stable Discharge Orders: Transfer Out of Facility (Order); Ordered 10/27/23 Ordered By: Charissa Eduardo Referrals: Knight,Mindy, DOCUMENTATION CONSULTANT [Primary Care Provider] - Coding Level of Care Code ED Electrical Logging Operator for Estela Lino
[2023-10-27] MEDS: sodium chloride 0.9% 1,000 ML 999 ML IV (03:15)
[2023-10-27] MEDS: iohexol 350 mg/mL 500 mL Btl (per mL) IV (03:46)
[2023-10-27 04:07] LABS: Charge for UA Resulting for Rev
[2023-10-27 04:09] LABS: Bilirubin Urine 2+ (Negative); Blood Urine Negative (Negative); Glucose Urine UA Trace (Normal); Ketones Urine Trace (Negative); Leukocyte Esterase Urine 2+ (Negative); Nitrate Urine Negative (Negative); Protein Urine Negative (Negative); Urine Appearance Clear (CLEAR); Urine Color Dark Yellow (Yellow); pH Urine 5.5 (5-7)
[2023-10-27 04:11] LABS: Bacteria Urine None Seen /hpf; Hyaline Casts Urine 0-4 /lpf; RBC Urine 0-2 /hpf (0-2); Squamous Epithelial Cell Urine 0-5 /hpf (0-5)
[2023-10-27 04:13] LABS: Specific Gravity, Urine 1.032 (1.005-1.030)
[2023-10-27 04:14] LABS: Add Urine Culture? No
--- NOTE | 2023-10-27 05:15 | US_ITS ---
WS: [id number] RIGHT UPPER QUADRANT ULTRASOUND HISTORY: ruq abd pain, abnormal ct COMPARISON: 03/08/2020 Liver: 15.2 cm in length. Normal size liver and echogenicity. No bile duct dilatation or mass. Portal Vein: Normal hepatopetal flow with monophasic waveform. Gallbladder: Mildly hydropic gallbladder. No pericholecystic fluid. No stones are identified. Gallbla dder wall measures just over 3 mm. CBD: Mildly dilated common bile duct. Central hepatic ducts are also dilated. 0.7 cm Pancreas: Poorly visualized. Right kidney: 9.6 cm in length. Normal size and echogenicity. No hydronephrosis or mass. Aorta and IVC: Unremarkable abdominal aorta and IVC. No ascites. US/US abdomen limited [id number] IMPRESSION: 1. Mildly hydropic gallbladder with no stones identified. 2. Mild intra and extrahepatic bile duct dilatation. 3. No pericholecystic fluid.
--- NOTE | 2023-10-27 05:26 | MR_ITS ---
WS: [id number] MRCP (MAGNETIC RESONANCE CHOLANGIOPANCREATOGRAPHY) HISTORY: ruq abd pain, abnormal ct possible mass amp of vater COMPARISON: CT 10/27/2023 TECHNIQUE: Multiple sequences are performed to evaluate the intra and extrahepatic ducts. There is mild intrahepatic and extrahepatic duct dilatation. Common bile duct is measuring 10 mm thro ughout its course to the ampulla of Vater. At the ampulla there is a intraluminal filling defect caus ing the obstruction. The shape of the filling defect is more likely a stone. There is a convex margin extending into the lumen. The overall attenuation by CT suggested this may've been a mass. Additiona l imaging will need to be performed. Gallbladder is mildly hydropic. No stones are identified within the gallbladder. There is mild perich olecystic fluid. The pancreatic duct is top normal at 3 mm. No evidence for acute pancreatitis. Spleen is enlarged to 16.5 cm in length. No hepatic mass. Diffuse hepatic steatosis. No adrenal mass. Mild dependent changes at the lung bases. MR/MR MRCP [id number] IMPRESSION: 1. Mild intrahepatic and extrahepatic bile duct dilatation to 10 mm. 2. Filling defect at the ampulla of Vater. Configuration is most likely a ston e. Recommend ERCP at this time to confirm mass versus stone at the ampulla of V ater. 3. Moderate splenomegaly. 4. Pancreatic duct is top normal size. Notified Dr. Eduardo at 10/27/2023 8:34 AM.
--- NOTE | 2023-10-27 13:44 | DCPLANNER ---
Called at 1342 spoke to Tea - natalia waiting on bed- Kim waiting on Discharge-
--- NOTE | 2023-10-27 15:11 | PC.NURSE ---
PATIENT FLUID DELAY DUE TO FIRST NS FLUID ORDER WAS HUNG IN ROOM NOT ATTACHED TO PATIENT, WHEN TAKING OVER THE PATIENT THIS MORNING. STARTED FIRST BAG OF FLUIDS ON PATIENT LATE DUE TO UNKNOWN DELAY.
[2023-10-27] MEDS: sodium chloride 0.9% 1,000 ML 100 ML IV (15:49)
--- NOTE | 2023-10-27 16:12 | PC.NURSE ---
PATIENT HAS BEEN TOLD NUMEROUS TIMES TO KEEP ARM STRAIGHT BUT HAS REFUSED CAUSING A DELAY IN FLUIDS.
[2023-10-27] MEDS: morphine 4 mg/mL SDV 1 mL IVP (22:05)
[2023-10-27] MEDS: ondansetron 2 mg/ML SDV 2 mL 4 MG IVP (22:06)
--- NOTE | 2023-10-27 22:29 | PC.NURSE ---
PULL UPS PROVIDED TO PT PER REQUEST. PT DENIES FURTHER NEEDS AND STATES SHE'S GOING TO TRY TO GET SOME SLEEP.
== END 2023-10-27 23:48 | disposition short-term general hospital (02) ==
PROVIDERS: Emergency Medicine; Emergency Provider Emergency Medicine; PCP Nurse Practitioner Family
DX: K80.51 Calculus of bile duct without cholangitis or cholecystitis with obstruction (principal); R74.01 Elevation of levels of liver transaminase levels; J44.9 Chronic obstructive pulmonary disease, unspecified; I10 Essential (primary) hypertension; E78.5 Hyperlipidemia, unspecified; Z85.6 Personal history of leukemia; Z87.891 Personal history of nicotine dependence
CPT/HCPCS: 36415; 74177; 74181; 76705; 80053; 81003; 81015; 83690; 85025; 96374; 96375; 99285; J2270; J2405; J7030; Q9967

== ENCOUNTER 2024-01-03 12:56 | Oncology outpatient (recurring) (ONCR) | payer MEDICARE, BC, SELFPAY ==
[2024-01-03 13:20] LABS: Hematocrit 45.8 % (36-47); Mean Corpuscular Hemoglobin 29.7 pg (27-33); Mean Platelet Volume 9.1 fL (7.4-10.4); Platelet Count 231 10^3/cmm (157-399); Red Blood Count 5.09 10^6/uL (3.85-5.65); Red Cell Distribution Width 13.3 % (12.1-15.1)
[2024-01-03 13:39] LABS: Alanine Aminotransferase 16 U/L (0-33); Albumin Level 4.1 g/dL (3.5-5.2); Alkaline Phosphatase 101 U/L (35-105); Anion Gap 14.1 (5-19); Aspartate Amino Transferase 17 U/L (0-32); Blood Urea Nitrogen 13 mg/dL (8-23); Calcium 9.2 mg/dL (8.5-10.5); Carbon Dioxide 28 mmol/L (22-29); Chloride 98 mmol/L (98-107); Creatinine Clr Calc Pharmacy 55.6421; Globulin 2.6 g/dL (1.3-4.6); Glucose 137 mg/dL (65-115); Osmolality Calculated 284 mOsm/kg (285-295); Potassium 4.1 mmol/L (3.5-5.1); Sodium 136 mmol/L (136-145); Total Bilirubin 0.8 mg/dL (0.15-1.2); Total Protein 6.7 g/dL (6.6-8.7)
[2024-01-03 13:48] LABS: White Blood Count 45.69 10^3/uL (3.29-11.43)
[2024-01-03 13:53] LABS: Absolute Eosinophils 0.5 10^3/cmm (0.0-0.7); Absolute Neutrophil 12.3 10^3/cmm (1.4-6.5); Absolute Segmented Neutrophil 12.3 10/cmm (1.6-7.1); Eosinophils 1 %; Lymphocytes 62 %; Lymphocytes Absolute 32.9 10^3/cmm (1.2-3.4); Platelet Estimate Normal (Normal); Segmented Neutrophils 27 %; Slide Review Slide Review Perform; Smudge Cells 2+; Total Cells Counted 100 (0-100)
== END 2024-01-20 23:59 | disposition home or self-care (01) ==
PROVIDERS: Nurse Practitioner Family; PCP Nurse Practitioner Family; Visit Provider Internal Medicine Medical Oncology
DX: C91.10 Chronic lymphocytic leukemia of B-cell type not having achieved remission (principal); E78.5 Hyperlipidemia, unspecified; Z87.891 Personal history of nicotine dependence; Z79.899 Other long term (current) drug therapy
CPT/HCPCS: 36415; 80053; 85007; 85025; 99214

== ENCOUNTER 2024-04-04 12:06 | Oncology outpatient (recurring) (ONCR) | payer MEDICARE, BC, SELFPAY ==
[2024-04-04 12:38] LABS: Basophils # 0.3 10^3/uL (0.0-0.1); Basophils % 0.4 %; Eosinophils # 0.3 10^3/uL (0.0-0.8); Eosinophils % 0.5 %; Hematocrit 50.6 % (36-47); Lymphocytes # 54.1 10^3/uL (0.8-4.8); Lymphocytes % 83.8 %; Mean Corpuscular HGB Conc 31.8 g/dL (30-55); Mean Corpuscular Hemoglobin 28.7 pg (27-33); Mean Corpuscular Volume 90.2 fl (85-98); Mean Platelet Volume 9.3 fL (7.4-10.4); Monocytes # 1.4 10^3/uL (0.2-0.9); Monocytes % 2.1 %; Neutrophils # 8.27 10^3/uL (1.8-7.7); Neutrophils % 12.9 %; Nucleated Red Blood Cells % 0 %; Platelet Count 243 10^3/cmm (157-399); Red Blood Count 5.61 10^6/uL (3.85-5.65); Red Cell Distribution Width 13.7 % (12.1-15.1)
[2024-04-04 13:02] LABS: Alanine Aminotransferase 24 U/L (0-33); Albumin Level 4.5 g/dL (3.5-5.2); Alkaline Phosphatase 97 U/L (35-105); Anion Gap 11.8 (5-19); Aspartate Amino Transferase 25 U/L (0-32); Blood Urea Nitrogen 10 mg/dL (8-23); Calcium 9.4 mg/dL (8.5-10.5); Carbon Dioxide 31 mmol/L (22-29); Chloride 99 mmol/L (98-107); Globulin 2.4 g/dL (1.3-4.6); Glucose 111 mg/dL (65-115); Lactate Dehydrogenase 189 U/L (135-214); Osmolality Calculated 284 mOsm/kg (285-295); Potassium 4.8 mmol/L (3.5-5.1); Sodium 137 mmol/L (136-145); Total Bilirubin 0.4 mg/dL (0.15-1.2); Total Protein 6.9 g/dL (6.6-8.7)
[2024-04-04 13:16] LABS: White Blood Count 64.52 10^3/uL (3.29-11.43)
[2024-04-04 13:20] LABS: Slide Review Slide Review Perform
== END 2024-04-21 23:59 | disposition home or self-care (01) ==
PROVIDERS: Nurse Practitioner Family; PCP Nurse Practitioner Family; Visit Provider Internal Medicine Medical Oncology
DX: C91.10 Chronic lymphocytic leukemia of B-cell type not having achieved remission (principal); E78.5 Hyperlipidemia, unspecified; Z87.891 Personal history of nicotine dependence; Z79.899 Other long term (current) drug therapy
CPT/HCPCS: 36415; 80053; 83615; 85025; 99214

== ENCOUNTER → 2024-04-13 14:23 | Outpatient (BNVA) | payer MEDICARE, BC, SELFPAY | PROVIDERS: PCP Family Medicine; Visit Provider Family Medicine | DX: E03.9 Hypothyroidism, unspecified (principal) | CPT/HCPCS: 84439; 84443 ==

== ENCOUNTER 2024-06-08 11:41 | Outpatient (CLI) | payer MEDICARE, BC, SELFPAY ==
--- NOTE | 2024-06-08 11:40 | MM_ITS ---
WS: [id number] Bilateral screening 3D tomosynthesis digital mammogram, 06/08/2024 11:50 AM Clinical Data: SCREENING Comparison: 10/26/2023, 05/08/2022, 04/14/2022, 03/19/2021, 11/04/2018, 06/09/2017, 05/19/2016. Findings: No spiculated masses or clustered calcifications are seen. There are no secondary signs of carcinoma. MM/MM scr tomosynthesis [id number] Impression: Negative bilateral mammogram unchanged. Recommend annual screening mammograms. BIRADS: 1 - Negative. FOLLOW UP: 1 Year Follow-up DENSITY: The breasts are almost entirely fatty. The CAD production checker was used
== END 2024-06-08 11:42 | disposition home or self-care (01) ==
LOC: MOBLMAM 11:43
PROVIDERS: PCP Family Medicine; Visit Provider Family Medicine
DX: Z12.31 Encounter for screening mammogram for malignant neoplasm of breast (principal); R92.313 Mammographic fatty tissue density, bilateral breasts
CPT/HCPCS: 77063; 77067

== ENCOUNTER 2024-07-04 12:01 | Oncology outpatient (recurring) (ONCR) | payer MEDICARE, BC, SELFPAY ==
[2024-07-04 12:25] LABS: Basophils # 0.3 10^3/uL (0.0-0.1); Basophils % 0.5 %; Eosinophils # 0.3 10^3/uL (0.0-0.8); Eosinophils % 0.4 %; Lymphocytes # 48.6 10^3/uL (0.8-4.8); Lymphocytes % 79.6 %; Mean Corpuscular HGB Conc 31.8 g/dL (30-55); Mean Corpuscular Hemoglobin 28.7 pg (27-33); Mean Corpuscular Volume 90.2 fl (85-98); Mean Platelet Volume 9.2 fL (7.4-10.4); Monocytes # 1.1 10^3/uL (0.2-0.9); Monocytes % 1.8 %; Neutrophils # 10.54 10^3/uL (1.8-7.7); Neutrophils % 17.3 %; Nucleated Red Blood Cells % 0 %; Platelet Count 210 10^3/cmm (157-399); Red Blood Count 5.43 10^6/uL (3.85-5.65); Red Cell Distribution Width 14.2 % (12.1-15.1)
[2024-07-04 12:41] LABS: Alanine Aminotransferase 11 U/L (0-33); Albumin Level 4.3 g/dL (3.5-5.2); Alkaline Phosphatase 95 U/L (35-105); Anion Gap 15.7 (5-19); Aspartate Amino Transferase 12 U/L (0-32); Blood Urea Nitrogen 16 mg/dL (8-23); Calcium 9.1 mg/dL (8.5-10.5); Carbon Dioxide 26 mmol/L (22-29); Chloride 100 mmol/L (98-107); Globulin 2.5 g/dL (1.3-4.6); Glucose 95 mg/dL (65-115); Osmolality Calculated 285 mOsm/kg (285-295); Potassium 4.7 mmol/L (3.5-5.1); Sodium 137 mmol/L (136-145); Total Bilirubin 0.4 mg/dL (0.15-1.2); Total Protein 6.8 g/dL (6.6-8.7)
[2024-07-04 12:49] LABS: White Blood Count 61.08 10^3/uL (3.29-11.43)
[2024-07-04 12:52] LABS: Slide Review Slide Review Perform
== END 2024-07-19 23:59 | disposition home or self-care (01) ==
PROVIDERS: Internal Medicine Medical Oncology; PCP Family Medicine; Visit Provider Internal Medicine
DX: C91.10 Chronic lymphocytic leukemia of B-cell type not having achieved remission (principal); R10.9 Unspecified abdominal pain; G89.29 Other chronic pain; Z79.891 Long term (current) use of opiate analgesic
CPT/HCPCS: 36415; 80053; 85025; 99213

== ENCOUNTER 2024-10-03 11:38 | Oncology outpatient (recurring) (ONCR) | payer MEDICARE, BC, SELFPAY ==
[2024-10-03 12:08] LABS: Hematocrit 43.3 % (36-47); Hemoglobin 14.00 g/dL (11.27-16.99); Mean Corpuscular HGB Conc 32.3 g/dL (30-55); Mean Corpuscular Hemoglobin 29.5 pg (27-33); Mean Corpuscular Volume 91.4 fl (85-98); Nucleated Red Blood Cells % 0 %; Platelet Count 198 10^3/cmm (157-399); Red Blood Count 4.74 10^6/uL (3.85-5.65)
[2024-10-03 12:26] LABS: Alanine Aminotransferase 13 U/L (0-33); Albumin Level 4.2 g/dL (3.5-5.2); Alkaline Phosphatase 86 U/L (35-105); Anion Gap 16.9 (5-19); Aspartate Amino Transferase 16 U/L (0-32); Blood Urea Nitrogen 11 mg/dL (8-23); Calcium 8.6 mg/dL (8.5-10.5); Carbon Dioxide 26 mmol/L (22-29); Chloride 98 mmol/L (98-107); Globulin 2.2 g/dL (1.3-4.6); Glucose 98 mg/dL (65-115); Osmolality Calculated 281 mOsm/kg (285-295); Potassium 4.9 mmol/L (3.5-5.1); Sodium 136 mmol/L (136-145); Total Protein 6.4 g/dL (6.6-8.7); Uric Acid 4.8 mg/dL (2.4-5.7)
[2024-10-03 12:32] LABS: Slide Review Slide Review Perform; White Blood Count 71.48 10^3/uL (3.29-11.43)
== END 2024-10-19 23:59 | disposition home or self-care (01) ==
PROVIDERS: PCP Family Medicine; Visit Provider Internal Medicine
DX: C91.10 Chronic lymphocytic leukemia of B-cell type not having achieved remission (principal); R03.0 Elevated blood-pressure reading, without diagnosis of hypertension; F17.200 Nicotine dependence, unspecified, uncomplicated; R32 Unspecified urinary incontinence; Z79.899 Other long term (current) drug therapy; G89.29 Other chronic pain
CPT/HCPCS: 36415; 80053; 83615; 84550; 85025; 85651; 99214

== ENCOUNTER 2024-11-14 09:40 | Oncology outpatient (recurring) (ONCR) | payer MEDICARE, BC, SELFPAY | END 2024-11-19 23:59 | disposition home or self-care (01) | LOC: ONCMED 09:40 | PROVIDERS: PCP Family Medicine; Visit Provider Internal Medicine Medical Oncology | DX: C91.10 Chronic lymphocytic leukemia of B-cell type not having achieved remission (principal); R03.0 Elevated blood-pressure reading, without diagnosis of hypertension; F17.200 Nicotine dependence, unspecified, uncomplicated; R32 Unspecified urinary incontinence; Z79.899 Other long term (current) drug therapy; G89.29 Other chronic pain | CPT/HCPCS: 99213 ==

== ENCOUNTER 2024-12-12 16:59 | Outpatient (CLI) | payer MEDICARE, BC, SELFPAY ==
--- NOTE | 2024-12-12 17:15 | CT_ITS ---
WS: [id number] LDCT LUNG CANCER SCREENING TECHNIQUE: Noncontrast CT of the chest with coronal and sagittal reformatted images. CLINICAL INFORMATION: screening COMPARISON: 07/14/2023 DLP: 86.22 mGy.cm DIvol: Mean CTDIvol: 2.00 (mGy) All CT scans at [facility] use at least one of these dose optimization techniques: automated exposure control; mA and/or kV adjustment per patient size (includes targeted exams where dose is matched to clinical indication); or iterative reconstruction. FINDINGS: 3 mm neck calcified nodule LEFT lower lobe is stable.Subsegmental atelectasis RIGHT middle lobe lingula and RIGHT lower lobe. Bronchiectasis in the RIGHT greater than LEFT lower lobes. Mild bronchiectasis RIGHT middle lobe. Normal caliber thoracic aorta. Aortic calcification. Coronary calcification. No mediastinal or hilar lymphadenopathy. No GE junction. Few slightly prominent axillary lymph nodes likely reactive similar to previous thoracic kyphosis with hypertrophic changes. CT/CT lung screening [id number] IMPRESSION: LUNG-RADS: 2-Benign Appearance or Behavior FOLLOW UP: 12 Month: Continue annual screening with LDCT
== END 2024-12-12 17:00 | disposition home or self-care (01) ==
LOC: RAD 17:00
PROVIDERS: PCP Family Medicine; Visit Provider Family Medicine
DX: Z12.2 Encounter for screening for malignant neoplasm of respiratory organs (principal); F17.219 Nicotine dependence, cigarettes, with unspecified nicotine-induced disorders; R91.1 Solitary pulmonary nodule; J98.11 Atelectasis; J47.9 Bronchiectasis, uncomplicated
CPT/HCPCS: 71271

== ENCOUNTER 2025-01-02 11:59 | Oncology outpatient (recurring) (ONCR) | payer MEDICARE, BC, SELFPAY ==
[2025-01-02 12:24] LABS: Hematocrit 44.5 % (36-47); Hemoglobin 14.40 g/dL (11.27-16.99); Mean Corpuscular HGB Conc 32.4 g/dL (30-55); Mean Corpuscular Hemoglobin 29.4 pg (27-33); Mean Corpuscular Volume 91.0 fl (85-98); Nucleated Red Blood Cells % 0 %; Platelet Count 178 10^3/cmm (157-399); Red Blood Count 4.89 10^6/uL (3.85-5.65)
[2025-01-02 12:43] LABS: Alanine Aminotransferase 16 U/L (0-33); Albumin Level 4.3 g/dL (3.5-5.2); Alkaline Phosphatase 97 U/L (35-105); Anion Gap 17.2 (5-19); Aspartate Amino Transferase 20 U/L (0-32); Blood Urea Nitrogen 12 mg/dL (8-23); Calcium 8.8 mg/dL (8.5-10.5); Carbon Dioxide 26 mmol/L (22-29); Chloride 103 mmol/L (98-107); Globulin 2.3 g/dL (1.3-4.6); Glucose 115 mg/dL (65-115); Osmolality Calculated 295 mOsm/kg (285-295); Potassium 4.2 mmol/L (3.5-5.1); Sodium 142 mmol/L (136-145); Total Protein 6.6 g/dL (6.6-8.7)
[2025-01-02 13:20] LABS: White Blood Count 51.68 10^3/uL (3.29-11.43)
[2025-01-02 13:25] LABS: Slide Review Slide Review Perform
== END 2025-01-19 23:59 | disposition home or self-care (01) ==
PROVIDERS: PCP Family Medicine; Visit Provider Internal Medicine Medical Oncology
DX: C91.10 Chronic lymphocytic leukemia of B-cell type not having achieved remission (principal); R03.0 Elevated blood-pressure reading, without diagnosis of hypertension; G89.29 Other chronic pain; Z79.899 Other long term (current) drug therapy; Z87.891 Personal history of nicotine dependence; Z12.2 Encounter for screening for malignant neoplasm of respiratory organs
CPT/HCPCS: 36415; 80053; 85025; 99214

== ENCOUNTER 2025-01-31 12:53 | Emergency (ER) | payer MEDICARE, BC, SELFPAY ==
[2025-01-31 13:01] VITALS: BP 131/80; PULSE 102; RESP 16; TEMP 36.4; O2SAT 90
--- OUTSIDE RECORDS SUMMARY | 2025-01-31 13:02 | XMS_ITS | Clinical Summary ---
Author Organization [facility] Address [address] [place] [address] Phone Care Team Providers Care Medical Records Supervisor Name Role Phone Unavailable Primary Care Provider Unavailabl e Allergies Active Allergy Reactions Criticality Noted Date Comments Naproxen Swelling Low 10/28/2023 Medications spironolactone (ALDACTONE) 25 mg tablet Take by mouth daily. Active multivitamins-mi nerals-lutein (CENTRUM SILVER) Tablet Take 1 Tablet by mouth daily. Active Saccharomyces boulardii (FLORASTOR) 250 mg Capsule Take 500 mg by mouth daily before lunch. Active ALPRAZolam (XANAX XR) 0.5 mg Extended Release 24 hour tablet Take 0.5 mg by mouth daily at bedtime. Active albuterol sulfate HFA 90 mcg/actuation aerosol inhaler Take 2 Puffs by inhalation every 6 hours as needed for Shortness of Breath. 3 Active Breo Ellipta 200-25 mcg/dose Disk with Device Take 1 Puff by inhalation daily. 4 Active oxyCODONE (ROXICODONE) 5 mg tablet Take 5 mg by mouth 2 times daily as needed for Pain. 4 Active tiotropium (SPIRIVA) 18 mcg capsule Take 18 mcg by inhalation daily. 4 Active levothyroxine 75 mcg tabletIndication s:Hypothyroidism , unspecified type Take 1 Tablet (75 mcg) by mouth daily in the morning. 90 Tablet 2 4 Active Active Problems Problem Noted Date Diagnosed Date Chronic lymphocytic leukemia 11/02/2023 Choledocholithiasis 10/28/2023 COPD (chronic obstructive pulmonary disease) 10/2023 HLD (hyperlipidemia) 10/28/2023 Hypothyroidism 10/28/2023 Anxiety 10/28/2023 Elevated LFTs 10/28/2023 Hyperbilirubinemia 10/28/2023 Essential hypertension 10/28/2023 Social History Tobacco Use Types Packs/Day Years Used Date Smoking Tobacco: Former Cigarettes Passive Smoke Exposure: Current Smokeless Tobacco: Never Tobacco Cessation:Counseling Given: Not Answered Alcohol Use Standard Drinks/Week Comments Not Currently 0 (1 standard drink = 0.6 oz pur e alcohol) Feeling Safe Answer Date Recorded Are you in a relationship wi th someone who hurts you emotionally and/or physically? No 12/23/2023 Food Insecurity Answer Date Recorded Patient needs follow up regardin 07/25/2024 Transportation Needs Answer Date Record ed Patient needs follow up regardin 07/25/2024 Housing Stability Answer Date Recorded Social/Environmental Concerns No concerns Utility Needs Answer Date Recorded Patient needs follow up regardin 07/25/2024 Comments No Sex and Gender Information Value Date Recorded Sex Assigned at Not on file Legal Sex Female 6:36 AM [employer] Gender Identity Not on file Sexual Orientation Not on file Last Filed Vital Signs Vital Sign Reading Time Taken Comments Blood Pressure 134/62 12/23/2023 2:44 PM CDT Pulse 78 12/23/2023 2:44 PM CDT Temperature 36.9 C (98.4 F) 12/03/2023 9:09 AM CDT Respiratory Rate 22 12/23/2023 2:44 PM CDT Oxygen Saturation 93% 12/23/2023 2:44 PM CDT Inhaled Oxygen Concentration - - Weight 78 kg (172 lb) 12/03/2023 9:09 AM CDT Height 165.1 cm (5' 5 ) 12/03/2023 9:09 AM CDT Body Mass Index 28.62 12/03/2023 9:09 AM CDT Plan of Treatment Health Maintenance Due Date Last Done Comments DTAP/TDAP/TD VACCINES (1 - Tdap) 1965 ZOSTER VACCINE (1 of 2) 1965 OSTEOPOROSIS SCREENING 2011 RSV VACCINE (60+ or ) (1 - 1-dose 75+ series) 2021 INFLUENZA VACCINE (#1) 2024 PNEUMOCOCCAL VACCINE 50+ YEARS Completed 02/26/2022 , 02/10/2021 Medical Devices Implanted Type Area Steam Fitter Device Identifier Shelf Expiration Date Model / Serial / Lot Stent Bili Advanix Rx 10fr 7cm [id number] - [id number] Implanted:Qty: 1 on 10/28/2023 by Ap Patrick MD at [facility] Stent N/A: Bile Duct [employer] [id number] 08/18/2024 [id number] / / [id number] Insurance MEDICARE PART A AND B [facility] Advance Directives For more information, please contact: [phone] * Full Code (Latest Code Status on File) Date Activated Date Inactivated Comments 12/23/2023 12:48 PM 12/23/2023 5:08 PM * Full Code Date Activated Date Inactivated Comments 10/28/2023 2:43 AM 10/29/2023 4:06 PM
--- OUTSIDE RECORDS SUMMARY | 2025-01-31 13:02 | XMS_ITS ---
Author Organization [facility] Address [address] [place] [address] Phone Care Team Providers Care Psychiatric Mental Health Nurse Name Role Phone Unavailable Primary Care Provider Unavailabl e Active Problems Problem Noted Date Diagnosed Date Chronic lymphocytic leukemia 11/02/2023 Choledocholithiasis 10/28/2023 COPD (chronic obstructive pulmonary disease) 10/2023 HLD (hyperlipidemia) 10/28/2023 Hypothyroidism 10/28/2023 Anxiety 10/28/2023 Elevated LFTs 10/28/2023 Hyperbilirubinemia 10/28/2023 Essential hypertension 10/28/2023 Current Treatment and Therapy Plans No current plan information found. Past Treatment and Therapy Plans No past plan information found. Lifetime Dose Tracking * Chemical Lifetime Dose Automatic Entry Manual Entr y Effective Dose 10.3 mSv 10.3 mSv 0 mSv Total DLP 685.7 DLP 685.7 DLP 0 DLP CTDIvol Max 30.1 mGy 30.1 mGy 0 mGy CTDIvol Min 30.1 mGy 30.1 mGy 0 mGy
--- NOTE | 2025-01-31 13:28 | CT_ITS ---
WS: [id number] CT ABDOMEN AND PELVIS NONCONTRAST HISTORY: renal colic TECHNIQUE: Imaging performed through the abdomen and pelvis. Coronal and sagittal reformats are submitted. All CT scans at [facility] use at least one of these dose optimization techniques: automated exposure control; mA and/or kV adjustment per patient size (includes targeted exams where dose is matched to clinical indication); or iterative reconstruction. DLP: 839.77 mGy.cm COMPARISON: 10/27/2023 Lower thorax: Linear atelectasis at the RIGHT lung base. Subsegmental atelectasis at the lingula. Heart size normal. Liver: Normal size liver. No mass or bile duct dilatation. Gallbladder: Prior cholecystectomy. No intrahepatic duct dilatation. Pancreas: Normal size and attenuation. Normal pancreatic duct. No pancreatitis or mass. Spleen: Normal. Adrenal glands: Normal. No mass. Right kidney: No perinephric stranding or obstruction. Normal size kidney. Left kidney: No perinephric stranding or obstruction. Normal size kidney. Aorta: Mild atherosclerosis abdominal aorta with no aneurysm. Central mesenteric/gastrohepatic lymph nodes and a few lymph nodes towards the ming hepatis. These lymph nodes were present on 10/27/2023 and have not significantly increased in size since 10/27/2023. GI tract: No GI tract obstruction. No small bowel obstruction. There is marked constipation with increased fecal material throughout the colon. Numerous diverticula in the descending and sigmoid colon. There is a acute inflammatory changes of diverticulitis involving a segment of the sigmoid colon extending over a length of 8 cm. Pericolonic stranding without an abscess or free air. Abdominal wall: Negative. No hernia. There are additional retroperitoneal lymph nodes and lymph nodes extending along the iliac chains and into the pelvis which are increasing in size and number since 10/27/2023. For example, lymph node along the RIGHT iliac chain measures 11 mm, prior measurement 8 mm. Lymph node along the distal RIGHT external iliac chain is 18 mm as compared to 15 mm. Bilateral obturator lymph nodes have increased in size. Pelvis: Uterus is present and contains extensive coarse calcifications from fibroids. No free fluid in the pelvis. Urinary bladder is negative. No adenopathy. Osseous structures: Increase in the lumbar lordosis. Degenerative disc disease and bridging osteophytes. No destructive bone lesions. CT/CT abdomen pelvis wo con [id number] IMPRESSION: 1. Sigmoid diverticulitis. Segment of acute diverticulitis extends over a danna th of 8 cm. There is no abscess or perforation. No free fluid. Numerous inflame d diverticula. 2. Moderate constipation. 3. Fibroid uterus. 4. There are numerous mildly enlarged lymph nodes in the gastrohepatic ligamen t and in the ming hepatis which were also present on the study from 10/27/2023 w ithout increase in size. 5. There are additional retroperitoneal and pelvic lymph nodes which are incre asing in size as compared to 10/27/2023. Low-grade leukemia is not excluded. Valentina elate with patient's history. 6. No renal obstruction. 7. Prior cholecystectomy. 8. Urinary bladder is moderately well distended. Bladder does not appear overd istended.
--- NOTE | 2025-01-31 13:28 | ED_ITS ---
HPI - Female Genitourinary 2 General: Chief complaint: Urogenital-Female Stated complaint: L side Back Pain going to front Can't pee Time Seen by Provider: 01/31/25 13:15 History of Present Illness: Patient is a pleasant 80-year-old female with history of OA, glaucoma, GERD, hypothyroidism, status postcholecystectomy, presents to the emergency room due to dysuria, oliguria, left flank radiating to left lower quadrant pain. This has been going on for 3 days. Patient states she does not fully void. She has urgency with urination. She has not had incontinence. No hematuria. She has some nausea without emesis. She states she is drinking plenty of water however feels dry. Her pain is described as a sharp stabbing pain in her left flank. Yesterday she had bilateral flank and it is now localized to the left flank. The radiation comes around laterally to suprapubic. No emesis. No fevers. No sick contact. Onset (ago): day(s) (3) Location of symptoms: flank (left) Severity: moderate Female Urogenital Radiation: Suprapubic Quality of pain: sharp and stabbing Urinary symptoms: Difficulty Urinating, Dysuria, Flank Pain, Frequency and Urgency Relieving factors: none Associated symptoms: Reports abdominal pain and nausea; Deny headache(s) Treatment prior to arrival: none Related Data Home Medications ?Medication ?Instructions ?Recorded ?Confirmed multivitamin 1 tab PO QAM 08/08/20 L.acidophil-L.casei-B.bifid-B.longum-FOS 2 cap PO SAURABH Y@12 11/08/22 01/31/25 2 billion cell-50 mg capsule (Probiotic Blend) aspirin-caffeine 500 mg-32.5 mg 1 tab PO Q6H PRN Pain 11/08/22 01/31/25 tablet (Nicolette Back and Body) albuterol sulfate 90 mcg/actuation 1 inh inhalation QI D PRN Shortness 12/04/24 01/31/25 aerosol inhaler (Ventolin HFA) Of Breath fluticasone furoate 200 1 inh inhalation DAILY 12/0401/31/25 mcg-vilanterol 25 mcg/dose inhalation powder (Breo Ellipta) tiotropium bromide 18 mcg capsule 1 cap inhalation LEWIS LY 12/04/24 01/31/25 with inhalation device (Spiriva with HandiHaler) coenzyme Q10 100 mg capsule 100 mg PO DAILY 01/31/25 1 04/02/24 krill 500 mg-omega-3 150 mg-dha 45 1 cap PO DAILY 01/2001/31/25 mg-epa 75 mh-usszbqz-bxeii capsule (krill oil) Previous Rx's ?Medication ?Instructions ?Recorded colestipol 1 gram tablet 1 g PO BID PRN loose stools #60 03/21/24 tabs alprazolam 0.5 mg tablet 0.5 mg PO TID PRN Anxiety 30 days 12/04/24 #90 tabs cyclobenzaprine 10 mg tablet 10 mg PO BID PRN Muscle S pasm #180 12/04/24 tabs four point walking cane #1 ea 12/04/24 metoclopramide HCl 10 mg tablet 10 mg PO Q6H PRN nause a and 12/04/24 vomiting #120 tabs omeprazole 40 mg capsule,delayed 40 mg PO DAILY #90 ca ps 12/04/24 release spironolactone 25 mg tablet 25 mg PO QAM #90 tabs 11/20 08/13 oxycodone 5 mg tablet 5 mg PO TID PRN pain 30 days #90 01/18/25 tabs Synthroid 75 mcg tablet 75 mcg PO DAILY@07 #90 tabs 01/25/25 (levothyroxine) amoxicillin 875 mg-potassium 1 tab PO Q12H #20 tabs clavulanate 125 mg tablet tamsulosin 0.4 mg capsule (Flomax) 0.4 mg PO DAILY #30 caps 01/31/25 Allergies Allergy/AdvReac Type Severity Reaction Status Date / Time Corticosteroids Allergy ADR-Chest Verified 01/17/25 11:13 (Glucocorticoids) Pain naproxen Allergy Unknown Verified 01/17/25 11:13 Review of Systems 2 General: Reports: 10 or more systems reviewed and unremarkable except in HPI and below Const: Denies: fever(s), chills or change in appetite Eyes: Denies: change in vision or blurry vision ENMT: Denies: throat pain or hoarseness Card: Denies: chest pain or palpitations Resp: Denies: dyspnea or productive cough GI: Reports: abdominal pain, nausea and heartburn (Chronic, after she eats for some time.); Denies: vomiting Musc: Reports: joint pain (Left hip, chronic) and joint stiffness (Left hip, chronic); Denies: muscle weakness Skin/Breast: Denies: rash or pruritus Neuro: Denies: headache(s), numbness in extremities, weakness in extremities, sensory changes, lack of coordination, difficulty walking, frequent falls, dizziness or vertigo Psych: Reports: anxiety (Chronic); Denies: depression PFSH ED 2 PFSH: Medical History (Updated 01/31/25 @ 15:51 by VITOR Foss) Chronic pain Anxiety Moderate protein malnutrition 3 Glaucoma Diverticulosis hospitalized with diverticulitis in 2003 COPD (chronic obstructive pulmonary disease) GERD (gastroesophageal reflux disease) Hypertension Hyperlipidemia Degenerative arthritis Hypothyroidism 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) Surgical History History of carpal tunnel release right History of esophagogastroduodenoscopy (EGD) 03/2019 Dr Phan History of colonoscopy 03/2019 Dr Phan History of cataract surgery 2017 History of removal of cyst Removal of cysts from the back and left hand (ganglion cyst) History of tubal ligation History of subtotal thyroidectomy (~1984) Family History Denies family history of Clotting disorder Lung disease Cancer Social History (Updated 01/02/25 @ 12:51 by Jim Fernández) Smoking and tobacco/nicotine status: former use of tobacco/nicotine Quit status (tobacco/nicotine): has quit using Year quit tobacco: June 2022 Former quit date comment: smoked 30 years Alcohol intake: never Substance/Drug Use: never Household members: spouse Marital status: Physical Exam 2 Const: COMMON NORMALS: no acute distress, average body habitus, patient oriented x3, no limitations, healthy appearing, alert and well nourished EXAM LIMITATIONS: no altered mental status and no behavioral limitations GENERAL APPEARANCE: cooperative, comfortable, well kempt, well developed and anxious; not in distress and not ill appearing HENMT: COMMON NORMALS: normocephalic, atraumatic, hearing grossly normal bilaterally and external ears normal HEAD & SCALP: normocephalic and atraumatic FACE & SINUS: normal facial exam and face symmetric EXTERNAL EAR: Yes external ears normal MOUTH: lip normal and moist mucous membranes abnormal Details: parched Eye: COMMON NORMALS: Equal, round and reactive pupils present, EOMs intact bilaterally, conjunctivae normal, no scleral icterus and no papilledema C ONJUNCTIVA: Yes conjunctivae normal PUPIL: Yes Equal, round and reactive pupils present DIRECT OPHTHALMOSCOPY: Yes no papilledema Neck/C-Spine: COMMON NORMALS: full ROM, no lymphadenopathy, supple, no meningeal signs and no JVD Lymph: LYMPHATIC: no lymphadenopathy noted Chest: COMMONS NORMALS: normal inspection of the chest and normal palpation of entire chest wall Resp: COMMON NORMALS: normal respiratory effort, No retractions, No use of accessory muscles and clear to auscultation bilaterally EFFORT & INSPECTION: Yes able to speak in complete sentences AUSCULTATION: clear to auscultation bilaterally Cardio: COMMON NORMALS: no JVD, regular rate, regular rhythm and No murmurs present (Cardio) RATE: regular rate RHYTHM: regular rhythm GI: COMMON NORMALS: No hepatosplenomegaly present INSPECTION: Yes normal to inspection AUSCULTATION: Yes normoactive bowel sounds PALPATION: Yes Tenderness to palpation present (GI) (Left flank) Details: LLQ, No Guarding due to palpation present (GI) and Yes No hepatosplenomegaly present : BLADDER/KIDNEY EXAM: Yes CVA tenderness on the left OB/EXTERNAL & SPECULUM: Deferred OB/external & speculum exam Back/Pelvis: GENERAL BACK: Yes CVA tenderness CVA tenderness: left and No mass THORACIC SPINE/UPPER BACK: Yes normal to inspection and Yes thoracic ROM normal Extremity: COMMON NORMALS: normal to inspection, full ROM, capillary refill normal and no joint enlargement GENERAL: Yes normal exam except as noted Neuro: COMMON NORMALS: patient oriented x3, CN's II-XII intact bilaterally, moves all extremities, no focal motor deficits and no sensory deficits noted SENSORIUM/ORIENTATION: Yes alert MENINGEAL SIGNS: Yes no meningeal signs M OTOR EXAM: 5/5 motor strength present throughout Psych: COMMON NORMALS: mental status grossly normal, Normal thought process present, cooperative, normal affect, speech normal and activity/motor behavior normal APPEARANCE: Yes well kempt SPEECH: Yes normal speech THOUGHT PROCESS: Normal thought process present Skin: COMMON NORMALS: no rashes or lesions noted and no wounds GENERAL SKIN EXAM: no rashes or lesions noted NAILS: normal Course 2 Reevaluation(s): Reevaluation #1: On reevaluation, no change Vital Signs: Vital signs: Vital Signs Temperature 97.6 F 01/31/25 13:01 Pulse Rate 102 H 01/31/25 13:01 Respiratory Rate 16 01/31/25 13:01 Blood Pressure 131/80 01/31/25 13:01 Pulse Oximetry 90 01/31/25 13:01 Oxygen Delivery Me thod Room Air 01/31/25 13:01 MDM - Female Medical Decision Making Patient is a pleasant 80-year-old female that presents with 3 days of dysuria, oliguria, flank pain that has localized to her left flank that presented to the ED. She is not having any incontinence of urine. She is not have any fevers. No history of renal colic. No hematuria. On examination, notable is her left flank with radiation to her suprapubic area. Differentials include renal colic versus pyelonephritis versus UTI. She does not have any midline back tenderness, no groin anesthesia, thus ruling out CHANI. Will obtain routine labs given her dry oromucosa, CT of the abdomen and pelvis without contrast for her renal colic, and urine analysis. I do note on old laboratory data that she recently had a WBC 1 month ago of 53,000. Patient does not have history of chronic leukemias. All of her questions answered to her satisfaction. On my review of CT, she did have some lymphadenopathy, and calcified uterus. I did see that her bladder was somewhat thickened mildly but however it was also distended. On 2 evaluations of patient, it took her approximately 30 minutes to void. Without noting a bladder obstruction, I am wondering why she cannot fully void. For now, given her elevation of WBCs, she definitely needs to see hematology with evaluation for leukemia, and considering lymphoma. I will make a referral to Dr. Cardenas. She does need a peripheral smear, and differential. These are pending, and her WBC is still elevated at 51,000. As far as her urinary symptoms that brought her to the ER, I do not note an irregularity other than trace leukocytes. I will go forth with culturing of this urine, however antibiotics are not warranted and may confuse this picture. I will place her on tamsulosin to see if this will help. As well, I will have a bladder scan to see if she is retaining her urine and needs to be self catheter. Patient now tells me he has CLL. This is our chart. This was my suspected concern. She is in touch with Dr. Cardenas. I have removed the referral from case management, although I have made it clear to patient is important to follow-up with him regarding worsening lymphadenopathy in the retroperitoneal space. As well, urinary retention can be caused from her fibrotic uterus. And another concern is her stool retention. I have discussed all of these with patient. The probiotic will also help with her stool retention, however she may need to add a laxative. All this was explained to patient to her understanding. Differential Diagnosis Likely abdominal pain (As addressed in medical decision making.) Medical Records I reviewed the patient's medical records. Lab Data I reviewed the patient's lab results. 01/31/25 14:20 01/31/25 14:20 Radiology Impressions Abdomen/Pelvis CT 01/31/25 13:28 IMPRESSION: 1. Sigmoid diverticulitis. Segment of acute diverticulitis extends over a length of 8 cm. There is no abscess or perforation. No free fluid. Numerous inflamed diverticula. 2. Moderate constipation. 3. Fibroid uterus. 4. There are numerous mildly enlarged lymph nodes in the gastrohepatic ligament and in the ming hepatis which were also present on the study from 10/27/2023 without increase in size. 5. There are additional retroperitoneal and pelvic lymph nodes which are increasing in size as compared to 10/27/2023. Low-grade leukemia is not excluded. Correlate with patient's history. 6. No renal obstruction. 7. Prior cholecystectomy. 8. Urinary bladder is moderately well distended. Bladder does not appear overdistended. Laboratory Results WBC 51.10 10^3/uL (3.29-11.43) H* 01/31/25 14:20 RBC 4.94 10^6/uL (3.85-5.65) 01/31/25 14:20 Hgb 14.50 g/dL (11.27-16.99) 01/31/25 14:20 Hct 44.4 % (36-47) 01/31/25 14:20 MCV 89.9 fl (85-98) 01/31/25 14:20 MCH 29.4 pg (27-33) 01/31/25 14:20 MCHC 32.7 g/dL (30-55) 01/31/25 14:20 RDW 13.2 % (12.1-15.1) 01/31/25 14:20 Plt Count 167 10^3/cmm (157-399) 01/31/25 14:20 MPV 9.2 fL (7.4-10.4) 01/31/25 14:20 Lymph % (Auto) Not Reportable 01/31/25 14:20 [place] % (Auto) Not Reportable 01/31/25 14:20 Lymph # (Auto) Not Reportable 01/31/25 14:20 [place] # (Auto) Not Reportable 01/31/25 14:20 Total Counted 100 (0-100) 01/31/25 14:20 Atypical Lymphs % 18.0 % (0-5) H 01/31/25 14:20 Absolute Neutrophils 10.2 10^3/cmm (1.4-6.5) H 01/31/25 14:20 Segmented Neutrophils 20 % 01/31/25 14:20 Band Neutrophils 0.0 % 01/31/25 14:20 Absolute Lymphocytes 37.3 10^3/cmm (1.2-3.4) H 01/31/25 14:20 Lymphocytes (Manual) 55 % 01/31/25 14:20 Monocytes (Manual) 7.0 % 01/31/25 14:20 Absolute Monocytes 3.6 10^3/cmm (0.1-0.6) H 01/31/25 14:20 Eosinophils (Manual) 0 % 01/31/25 14:20 Absolute Eosinophils 0.0 10^3/cmm (0.0-0.7) 01/31/25 14:20 Basophils (Manual) 0.0 % 01/31/25 14:20 Absolute Basophils 0.0 10^3/cmm (0.0-0.2) 01/31/25 14:20 Smudge Cells 2+ H 01/31/25 14:20 Platelet Estimate Normal (Normal) 01/31/25 14:20 Polychromasia Trace 01/31/25 14:20 Peripher Smr Path Cons Sent for review 01/31/25 14:20 Sodium 139 mmol/L (136-145) 01/31/25 14:20 Potassium 4.5 mmol/L (3.5-5.1) 01/31/25 14:20 Chloride 101 mmol/L (98-107) 01/31/25 14:20 Carbon Dioxide 27 mmol/L (22-29) 01/31/25 14:20 Anion Gap 15.5 (5-19) 01/31/25 14:20 BUN 8 mg/dL (8-23) 01/31/25 14:20 Creatinine 0.7 mg/dL (0.5-0.9) 01/31/25 14:20 GFR Calculation Not Reportable 01/31/25 14:20 Glucose 103 mg/dL (65-115) 01/31/25 14:20 Calculated Osmolality 287 mOsm/kg (285-295) 01/31/25 14:20 Calcium 8.9 mg/dL (8.5-10.5) 01/31/25 14:20 Total Bilirubin 0.7 mg/dL (0.15-1.2) 01/31/25 14:20 AST 17 U/L (0-32) 01/31/25 14:20 ALT 17 U/L (0-33) 01/31/25 14:20 Alkaline Phosphatase 92 U/L (35-105) 01/31/25 14:20 C-Reactive Protein 41.3 mg/L (0.0-4.9) H 01/31/25 14:20 Total Protein 6.0 g/dL (6.6-8.7) L 01/31/25 14:20 Albumin 3.9 g/dL (3.5-5.2) 01/31/25 14:20 Globulin 2.1 g/dL (1.3-4.6) 01/31/25 14:20 Urine Color Yellow (Yellow) 01/31/25 13:55 Urine Appearance Clear (CLEAR) 01/31/25 13:55 Urine pH 5.5 (5-7) 01/31/25 13:55 Ur Specific [place] 1.013 (1.005-1.030) 01/31/25 13:55 Urine Protein Negative (Negative) 01/31/25 13:55 Urine Glucose (UA) Negative (Normal) 01/31/25 13:55 Urine Ketones Negative (Negative) 01/31/25 13:55 Urine Blood Negative (Negative) 01/31/25 13:55 Urine Nitrate Negative (Negative) 01/31/25 13:55 Urine Bilirubin Negative (Negative) 01/31/25 13:55 Urine Urobilinogen 1.0 mg/dL (Negative) 01/31/25 13:55 Ur Leukocyte Esterase Trace (Negative) A 01/31/25 13:55 Urine RBC 0-2 /hpf (0-2) 01/31/25 13:55 Urine WBC 0-5 /hpf (0-5) 01/31/25 13:55 Ur Squamous Epith Cells 0-5 /hpf (0-5) 01/31/25 13:55 Amorphous Sediment Not Reportable 01/31/25 13:55 Urine Bacteria None seen /hpf (NONE) 01/31/25 13:55 Hyaline Casts 17.77 /lpf 01/31/25 13:55 XR interpretation done by ED provider, pending radiology final review ED provider radiology interpretation(s): Calcified uterus Discharge Plan Discharge Patient Disposition: Home Clinical Impression: Leukocytosis, Dysuria, CLL (chronic lymphocytic leukemia) Condition: Stable Prescriptions: New tamsulosin [Flomax] 0.4 mg capsule 0.4 mg PO DAILY Qty: 30 0RF amoxicillin-pot clavulanate 875-125 mg tablet 1 tab PO Q12H Qty: 20 0RF No Action albuterol sulfate [Ventolin HFA] 90 mcg/actuation HFA aerosol inhaler 1 inh inhalation QID PRN (Reason: Shortness Of Breath) tiotropium bromide [Spiriva with HandiHaler] 18 mcg capsule, w/inhalation device 1 cap inhalation DAILY Rx Instructions: puncture 1 cap using device; one dose = 2 inhalations fluticasone furoate-vilanterol [Breo Ellipta] 200-25 mcg/dose blister with device 1 inh inhalation DAILY spironolactone 25 mg tablet 25 mg PO QAM Qty: 90 1RF cyclobenzaprine 10 mg tablet 10 mg PO BID PRN (Reason: Muscle Spasm) Qty: 180 1RF omeprazole 40 mg capsule,delayed release(DR/EC) 40 mg PO DAILY Qty: 90 1RF metoclopramide HCl 10 mg tablet 10 mg PO Q6H PRN (Reason: nausea and vomiting) Qty: 120 1RF alprazolam 0.5 mg tablet 0.5 mg PO TID PRN (Reason: Anxiety) 30 Days Qty: 90 3RF (DME) four point walking cane See Rx Instructions .Route .MEDSUPPLY Qty: 1 0RF Rx Instructions: As directed colestipol 1 gram tablet 1 g PO BID PRN (Reason: loose stools) Qty: 60 0RF Rx Instructions: take one to two tabs daily for loose stools. oxycodone 5 mg tablet 5 mg PO TID PRN (Reason: pain) 30 Days Qty: 90 0RF Synthroid 75 mcg tablet 75 mcg PO DAILY@07 Qty: 90 1RF multivitamin Tablet 1 tab PO QAM Nicolette Back and Body 500-32.5 mg Tablet 1 tab PO Q6H PRN (Reason: Pain) Probiotic Blend 2 billion cell-50 mg Capsule 2 cap PO DAILY@12 coenzyme Q10 [CoQ-10] 100 mg Capsule 100 mg PO DAILY krill oil [id number] mg Capsule 1 cap PO DAILY Discharge Orders: Discharge ED (Routine); Ordered 01/31/25 Ordered By: Yolanda Stevenson Referrals: Mary Carmen Cardenas MD [Hospitalist, Oncology] - 7-10 days Clinical Impression: Leukocytosis Abner Prescott MD [Primary Care Provider, Family Practice] Discharge Diet: Usual diet Discharge Activity: Resume usual activity Patient Instructions: Leukocytosis (ED), Acute Urinary Retention in Women (ED), Patient Portal & Silke Instructions Activity Restrictions/Additional Instructions: - A referral to hematology has been made since your white count is still high. This is very important to have worked up by a specialist. Please call Dr. Cardenas on your referrals to make an appointment. The referral is in today's visit. If you do not hear from them, feel free to call Dr. Cardenas's office or case management. (They are typically very good at getting back to you, however I do not want this to fall through the cracks). This is regarding a CAT scan with worsening lymphadenopathy as compared to last year. - It is also very important to have your primary care address your urine issue with not fully urinating. I have sent tamsulosin to the pharmacy, however it would be good to give your primary feedback regarding this new medication, but you may ultimately need to self catheterize if you are not fully getting your urine out. - I have also cultured your urine with this concern, although your preliminary results do not show an infection. - You do have antibiotics for your diverticulitis that will cover a urinary infection. Is important to tell Dr. Cardenas you are on antibiotics. - Is very important to take a probiotic given your antibiotics for your diverticulitis, and also your constipation. Thank you for choosing [facility] for your healthcare needs today. You have been screened and evaluated and felt safe for discharge. Health conditions do change or evolve sometimes and as such it is important that you follow up with your Primary Doctor to be re checked, 3-5 days is a general good time frame for follow up. You are always welcome to return to the ED for re assessment if your symptoms are worsening or you have new concerns Print Language: Hebrew Coding Level of Care Code ED Top Dyeing Machine Tender for Estela Lino
[2025-01-31 14:02] LABS: Glucose Urine UA Negative (Normal); Nitrate Urine Negative (Negative); Specific Gravity, Urine 1.013 (1.005-1.030)
[2025-01-31 14:07] LABS: Add Urine Microscopic? YES
[2025-01-31 14:34] LABS: UA Slide Review UA Slide Review Perf
[2025-01-31 14:40] LABS: Hematocrit 44.4 % (36-47); Hemoglobin 14.50 g/dL (11.27-16.99); Mean Corpuscular HGB Conc 32.7 g/dL (30-55); Mean Corpuscular Hemoglobin 29.4 pg (27-33); Mean Corpuscular Volume 89.9 fl (85-98); Platelet Count 167 10^3/cmm (157-399); Red Blood Count 4.94 10^6/uL (3.85-5.65)
--- NOTE | 2025-01-31 14:52 | PC.PHAR ---
Pt was able to stop using her inhalers and stop taking her Chantix since she has not smoked in 7 months. Yaaaa!
[2025-01-31 14:56] LABS: Alanine Aminotransferase 17 U/L (0-33); Albumin Level 3.9 g/dL (3.5-5.2); Alkaline Phosphatase 92 U/L (35-105); Anion Gap 15.5 (5-19); Aspartate Amino Transferase 17 U/L (0-32); Blood Urea Nitrogen 8 mg/dL (8-23); Calcium 8.9 mg/dL (8.5-10.5); Carbon Dioxide 27 mmol/L (22-29); Chloride 101 mmol/L (98-107); Creatinine Clr Calc Pharmacy 61.8178; Globulin 2.1 g/dL (1.3-4.6); Glucose 103 mg/dL (65-115); Osmolality Calculated 287 mOsm/kg (285-295); Potassium 4.5 mmol/L (3.5-5.1); Sodium 139 mmol/L (136-145); Total Protein 6.0 g/dL (6.6-8.7)
[2025-01-31 15:16] LABS: White Blood Count 51.10 10^3/uL (3.29-11.43)
[2025-01-31 15:21] LABS: Absolute Segmented Neutrophil 10.2 10/cmm (1.6-7.1); Atypical Lymphs 18.0 % (0-5); Band Neutrophils Absolute 0.0 10^3/cmm (0.0-1.2); Polychromasia Trace; Slide Review Slide Review Perform; Total Cells Counted 100 (0-100)
[2025-01-31 15:22] LABS: Smudge Cells 2+
[2025-01-31 15:42] LABS: LAB Peripheral Smear Sent for Review
[2025-01-31 15:49] VITALS: BP 132/75; PULSE 79; O2SAT 91
--- NOTE | 2025-02-01 10:07 | DCPLANNER ---
messaged onc for er f/u
== END 2025-01-31 15:57 | disposition home or self-care (01) ==
PROVIDERS: Emergency Provider Physician Assistant; PCP Family Medicine
DX: C91.10 Chronic lymphocytic leukemia of B-cell type not having achieved remission (principal); Z87.891 Personal history of nicotine dependence; E78.5 Hyperlipidemia, unspecified; J44.9 Chronic obstructive pulmonary disease, unspecified; I10 Essential (primary) hypertension
CPT/HCPCS: 36415; 51798; 74176; 80053; 80503; 81001; 85007; 86140; 87086; 99284

== ENCOUNTER 2025-02-05 15:20 | Oncology outpatient (recurring) (ONCR) | payer MEDICARE, BC, SELFPAY | END 2025-02-18 23:59 | disposition home or self-care (01) | PROVIDERS: PCP Family Medicine; Visit Provider Internal Medicine Medical Oncology | DX: C91.10 Chronic lymphocytic leukemia of B-cell type not having achieved remission (principal); R03.0 Elevated blood-pressure reading, without diagnosis of hypertension; G89.29 Other chronic pain; Z79.899 Other long term (current) drug therapy; Z87.891 Personal history of nicotine dependence; Z12.2 Encounter for screening for malignant neoplasm of respiratory organs | CPT/HCPCS: 99214 ==